=== PATIENT | male | born 1950 | race Caucasian/White ===

== ENCOUNTER 2018-06-14 12:05 | Inpatient (IN) | payer MEDICARE, SELFPAY ==
[2018-06-14] VITALS (8 sets, daily range): BP systolic 130–163; BP diastolic 76–95; PULSE 101–111; RESP 16–26; TEMP 36.8; O2SAT 18–96; BMI 27.2; BMI 27.3; BMI 26.4
[2018-06-14] MEDS: Albuterol 2.5 MG/3 ML VIAL.NEB. INHALATION ×3 (12:55→13:01)
[2018-06-14] MEDS: Ipratropium/Albuterol Sulfate 3 ML AMPUL.NEB INHALATION ×3 (12:55→23:00)
[2018-06-14 12:59] LABS: Absolute Lymphocyte Count 1.42 X10^3/ul (0.83-4.51); Absolute Neutrophil Count 6.9 X10^3/uL (2.0-7.7); Basophil# 0.09 X10^3/uL; Basophil% 0.9 % (0-1); Eosinophils% 9.7 % (0-5); Hematocrit 46.7 % (40-54); Hemoglobin 15.8 g/dl (13.0-16.5); Lymphocyte # 1.42 X10^3/ul (4.0); Lymphocyte % 13.8 % (19-41); Mean Corp Hgb Conc 33.8 g/gl (32-36); Mean Corpuscular Volume 88.6 fL (80-94); Mean Platelet Vol. 9.3 fl (6.2-12.0); Monocyte% 7.8 % (0-10); Neutrophil # 6.93 X10^3/uL (2.7-7.7); Neutrophil % 67.6 % (47-70); POSITIVE COUNT NO; POSITIVE DIFFERENTIAL NO; POSITIVE MORPHOLOGY NO; Platelet Count 345 K/mm3 (150-450); RBC Distribution Width CV 13.6 % (11.6-14.6); Red Blood Count 5.27 M/mm3 (4.6-6.2); White Blood Count 10.3 K/mm3 (4.4-11.0)
[2018-06-14 13:09] LABS: Anion Gap 12 (5-15); BUN 11 mg/dL (7-18); BUN/Creat Ratio 12.9 RATIO (10-20); Calcium,Total 9.3 mg/dL (8.5-10.1); Chloride 105 mmol/L (98-107); Creatinine, Serum 0.85 mg/dL (0.70-1.30); EST Glomerular Filtration Rate 95 mL/min (>60); Est Glom Filt Rate - Afr Amer 115 mL/min (>60); Estimated Creatinine Clearance 85.88 ml/min; Glucose 122 mg/dL (74-106); Sodium Level 140 mmol/L (136-145)
[2018-06-14] MEDS: predniSONE 20 MG Tablet 60 MG PO (13:13)
--- NOTE | 2018-06-14 13:25 | RAD_ITS ---
STUDY: X-RAY CHEST REASON FOR EXAM: Male, 68 years old. Dyspnea on exertion. Productive sputum. TECHNIQUE: PA and lateral views of the chest. COMPARISON: None. FINDINGS: EKG electrodes are seen. Hyperinflation. There is no demonstrated pleural abnormality. Normal size heart. Normal mediastinum and josselyn. Normal visualized pulmonary arteries. Normal visualized aortic arch and descending thoracic aorta. There are diffuse degenerative changes of the visualized thoracic spine. Normal visualized ribs, clavicles, and shoulders. There is no demonstrated abnormality of the visualized soft tissue structures of the upper abdomen. RAD/Chest PA and Lateral IMPRESSION: Hyperinflation. Electronically Signed: Bill Rico MD at 13:47 EST Tel [phone], Service support ,
--- NOTE | 2018-06-14 14:33 | CT_ITS ---
STUDY: CTA CHEST REASON FOR EXAM: Male, 68 years old. Tachycardia and tachypnea. RADIATION DOSAGE (If Supplied By Facility): CTDIvol = ( 10.86 ) mGy, DLP = ( 579.42 ) mGycm TECHNIQUE: The examination was performed with the intravenous administration of 100 ml of Isovue 370 contrast material. Post-processing of the angiographic images was performed, with multiplanar reformation and 3D reconstruction. Individualized dose optimization techniques were used for this CT. COMPARISON: Comparison is made with prior chest radiograph done earlier in the day. FINDINGS: Normal enhancement of the main pulmonary artery and right and left pulmonary arteries. Normal enhancement of the bilateral peripheral pulmonary arteries. There is no demonstrated pulmonary embolism. Normal thoracic aorta and visualized great vessels. There is no demonstrated aortic dissection. There are calcifications of the coronary arteries. Normal mediastinum. Normal hilar regions. Normal visualized trachea and bronchi. Hyperinflation. Diffuse emphysematous changes with evidence of central lobular emphysematous changes worse in the upper lobes. No infiltration is seen. Normal pleura. Normal chest wall structures. There are degenerative changes of thoracic spine. The patient is status post cholecystectomy. Small hiatal hernia. CT/CTA Chest W/WO Contrast IMPRESSION: Emphysematous changes worse in the upper lobes. No evidence of pulmonary embolism. Electronically Signed: Bill Rico MD at 15:31 EST Tel [phone], Service support ,
--- NOTE | 2018-06-14 15:08 | EKG12_ITS ---
Test Reason : SOB Blood Pressure : / mmHG Vent. Rate : 095 BPM Atrial Rate : 095 BPM P-R Int : 184 ms QRS Dur : 098 ms QT Int : 328 ms P-R-T Axes : 085 -79 035 degrees QTc Int : 412 ms Normal sinus rhythm Left axis deviation Possible Lateral infarct , age undetermined Inferior infarct , age undetermined Abnormal ECG Confirmed by LINNETTE FUENTES, SEBASTIAN ([id number]), offline editor MANISH ALVAREZ ([id number]) on 06/18/2018 2:09:49 PM Referred By: RAY Confirmed By:SEBASTIAN ANGLIN MD
--- NOTE | 2018-06-14 15:53 | ED.DCSUM_ITS ---
- ER Visit Summary Date of Service: 06/14/18 Chief Complaint: Shortness of breath, wheezing with productive cough that started 3 days ago History of Present Illness: The patient is a 68 M who has history of COPD who presents with shortness of breath, wheezing and productive cough of green sputum for the past 3 days. He does report rhinorrhea and postnasal drainage. He denies fever, chills or night sweats. He denies ocular, visual or auditory symptoms. He denies chest pain. He does complain of palpitations with walking or activity. He denies abdominal pain, nausea vomiting or diarrhea. He denies black or maroon stool. He denies urologic symptoms. He denies myalgias arthralgias. He denies headache, anesthesia, paresthesia motor weeks. He does complain of generalized weakness. He denies problems with bruising or bleeding. He denies urticaria or angioedema. Physical Examination: Vital signs are remarkable for a blood pressure 163/95 heart rate of 111 and respiration 26. Pulse ox 90% on room air. He is a thin gentleman. Head is atraumatic normocephalic. Pupils are equal round reactive. Extraocular muscles are intact. TMs are pearly white with landmarks noted. Nares patent with no drainage. Posterior pharynx without erythema or exudate. Uvula is midline. There is no dysphonia or dysphasia. Trachea is midline. There is no stridor with auscultation of the neck. Heart is rapid and regular without murmur, gallop or rub. Lungs are remarkable for increased x-ray phase, decreased air movement and wheezing noted throughout. Abdomen soft nontender. There is no asymmetry, swelling, discoloration, leg vein distention, palpable cords or tenderness along the distribution of the deep venous system. Neuro exam is nonfocal Test Results: Chest x-ray reveals hyperaeration with chronic changes consistent with COPD. White count is normal. Electronic panel is unremarkable. CTA was obtained because patient became tachycardic and dyspneic with hypoxia. CTA interpreted by radiologist reveals emphysematous COPD changes. Emergency Department Course and Treatment: Patient was treated with DuoNeb, albuterol for exacerbation COPD. Chest x-ray was obtained to evaluate for pneumonia. CTA was obtained because of the hypoxia with tachycardia. He was reassessed at 1555. He will receive a dose of antibiotics and steroids. He is saturating 93% on 2 L at rest. Treatment Plan: Aggressive pulmonary toilet, aerosols, steroids and antibiotics Disposition: MedSur Impression: 1. Exacerbation of COPD 2. Bronchitis 3. Sinus tachycardia documented monitor 4. Hypoxia This note was generated with [employer] dictation software. It may contain incorrect words, spelling, and punctuation that were not noted in review of the chart prior to signing ED Disposition - Plan for ED Patient: Chief Complaint: Shortness of Breath [facility] [[facility] Provider[facility] -
--- NOTE | 2018-06-14 16:03 | NURSING ---
MED SURG COPD, BRONCHITIS OBS MAURO
[2018-06-14] MEDS: Doxycycline 100 MG CAPSULE PO (16:28)
--- NOTE | 2018-06-14 17:01 | PCM.HP.STD ---
Problem List (1) COPD with acute exacerbation Status: Acute History of Present Illness Date of Admission: 06/14/18 Chief Complaint: shortness of breath. The patient is a 68 year old M who has been grossly short of breath over the past few weeks. Patient stated to be worse during the colder times but today, patient became very short of breath and dyspneic with the imaging bathroom. Patient presented to the emergency room and his vital signs were stable but patient got up and ambulated and dropped down to 89%. The decision was then made to admit the patient for acute exacerbation of COPD. Patient received 60 mg. Patient is never been admitted for COPD exacerbation before. Patient has been diagnosed with COPD but never has undergone pulmonary function test. [] Past Medical History Medical History: Medical History (Last Updated 06/14/18 @ 17:03 by Fidel Blue DO) Agent orange exposure Z77.098 COPD (chronic obstructive pulmonary disease) J44.9 Allergies No Known Allergies Allergy (Verified 04/17/16 11:27) Home Medications: Ambulatory Orders Medication Instructions Recorded Albuterol Sulfate [Ventolin Hfa] 1 - 2 puff INHALATION TID 06/14/18 Aspirin 325 mg PO BID 06/14/18 Multivits,Ca,Min/Iron/FA/Lycop 1 tab PO DAILY 06/14/18 [Centrum Men's Tablet] Surgical History: cholecystectomy Lives: Spouse/ Significant Other Smoking Status: Former smoker Tobacco Use: Non-smoker Alcohol: None Drugs: None - *Family History Maternal History Items: - - no COPD Review of Systems Constitutional: Denies: Chills, Fever, Weight Change Eyes: Denies: Blurred vision, Double vision HEENT: Denies: Head Aches, Sinus Congestion, Sinus Drainage Cardiovascular: Denies: Chest Pain, Palpitations Respiratory: Reports: Cough, Shortness of Breath Gastrointestinal: Denies: Abdominal Pain, Nausea, Vomiting Genitourinary: Denies: Dysuria Musculoskeletal: Denies: Joint Pain, Joint Tenderness Skin: Denies: Rash, Wounds Neurological: Denies: Numbness, Tingling, Focal weakness Psychiatric: Denies: Anxiety, Depression Endocrine: Denies: Change in Body Habitus, Heat/ Cold Intolerance Hematologic/ Lymphatic: Denies: Easy Bruising, Easy Bleeding Comment: A 10 point review of systems were negative except as mentioned in the history of present illness and the other review of systems. VTE Information - Inpt Only VTE Present on Admission: No VTE Pharm Prophylaxis ordered?: Yes Patient Problems: Active and Suspected Problems COPD with acute exacerbation (Acute) - Physical Exam General: Alert, Cooperative, No apparent distress HEENT: Atraumatic, Normocephalic Oral: Moist Mucosa, No Gingival or Mucosal Lesions/ Ulcerations Neck: No Nodes, Thyroid Normal Size and Texture Lungs: Diminished, Wheezes Cardiovascular: Regular rate, Regular Rhythm, Normal S1, Normal S2, No murmurs Abdomen: Bowel Sounds Present, Soft, Non Tender, Non-Distended, No Hepato-splenomegaly, Passing Flatus Extremities: No edema, No Calf Tenderness Skin: No rashes, No breakdown Musculoskeletal: No Tenderness to Palpation of Joints or Extremities, No Muscle Wasting Psych/Mental Status: Normal Affect, Appropriate Vital Signs Temp Pulse Resp BP Pulse Ox 36.8 C 106 H 16 131/95 H 18 06/14/18 12:05 06/14/18 16:11 06/14/18 16:11 06/14/18 16:11 06/14/18 16:11 Oxygen Delivery Method Room Air Weight: 86.183 kg Body Mass Index (BMI) 27.2 Laboratory Tests Past 24 Hrs 06/14/18 06/14/18 12:45 12:45 WBC 10.3 RBC 5.27 Hgb 15.8 Hct 46.7 MCV 88.6 MCH 30.0 MCHC 33.8 RDW 13.6 RDW Differential 44.0 H Plt Count 345 MPV 9.3 Immature Gran % (Auto) 0.200 Neut % (Auto) 67.6 Lymph % (Auto) 13.8 L Gem % (Auto) 7.8 Eos % (Auto) 9.7 H Baso % (Auto) 0.9 Absolute Neuts (auto) 6.9 Absolute Lymphs (auto) 1.42 Total Counted Not Reportable Sodium 140 Potassium 4.0 Chloride 105 Carbon Dioxide 23.0 Anion Gap 12 BUN 11 Creatinine 0.85 Estim Creat Clear Calc 85.88 Est GFR (MDRD) Af Amer 115 Est GFR (MDRD) Non-Af 95 BUN/Creatinine Ratio 12.9 Glucose 122 H Calcium 9.3 Clinical Impression(s) from Imaging Studies Chest X-Ray 06/14/18 13:25 IMPRESSION: Hyperinflation. Electronically Signed: Bill Rico MD at 13:47 EST Tel [phone], Service support , Chest CTA 06/14/18 14:33 IMPRESSION: Emphysematous changes worse in the upper lobes. No evidence of pulmonary embolism. Electronically Signed: Bill Rico MD at 15:31 EST Tel [phone], Service support , Assessment/Plan All Active Problems COPD with acute exacerbation (Acute) 1. Acute exacerbation of COPD Plan is for IV steroids and bronchodilators Check an amatory pulse ox prior to discharge Patient need to follow-up with pulmonology as outpatient and have formal pulmonary function tests 2. History of agent orange exposure It is unclear to me if patient is having overt symptoms with his agent orange. [facility] with [facility] for further screening and monitor as indicated. 3. DVT prophylaxis with Lovenox Code Visit OBSV E&M: 50970 Initial observation care L2
--- NOTE | 2018-06-14 17:05 | HP.PCM_ITS ---
Problem List (1) COPD with acute exacerbation Status: Acute History of Present Illness Date of Admission: 06/14/18 Chief Complaint: shortness of breath. The patient is a 68 year old M who has been grossly short of breath over the past few weeks. Patient stated to be worse during the colder times but today, patient became very short of breath and dyspneic with the imaging bathroom. Patient presented to the emergency room and his vital signs were stable but patient got up and ambulated and dropped down to 89%. The decision was then made to admit the patient for acute exacerbation of COPD. Patient received 60 mg. Patient is never been admitted for COPD exacerbation before. Patient has been diagnosed with COPD but never has undergone pulmonary function test. [] Past Medical History Medical History: Medical History (Last Updated 06/14/18 @ 17:03 by Fidel Blue DO) Agent orange exposure Z77.098 COPD (chronic obstructive pulmonary disease) J44.9 Allergies No Known Allergies Allergy (Verified 04/17/16 11:27) Home Medications: Ambulatory Orders Medication Instructions Recorded Albuterol Sulfate [Ventolin Hfa] 1 - 2 puff INHALATION TID 06/14/18 Aspirin 325 mg PO BID 06/14/18 Multivits,Ca,Min/Iron/FA/Lycop 1 tab PO DAILY 06/14/18 [Centrum Men's Tablet] Surgical History: cholecystectomy Lives: Spouse/ Significant Other Smoking Status: Former smoker Tobacco Use: Non-smoker Alcohol: None Drugs: None - *Family History Maternal History Items: - - no COPD Review of Systems Constitutional: Denies: Chills, Fever, Weight Change Eyes: Denies: Blurred vision, Double vision HEENT: Denies: Head Aches, Sinus Congestion, Sinus Drainage Cardiovascular: Denies: Chest Pain, Palpitations Respiratory: Reports: Cough, Shortness of Breath Gastrointestinal: Denies: Abdominal Pain, Nausea, Vomiting Genitourinary: Denies: Dysuria Musculoskeletal: Denies: Joint Pain, Joint Tenderness Skin: Denies: Rash, Wounds Neurological: Denies: Numbness, Tingling, Focal weakness Psychiatric: Denies: Anxiety, Depression Endocrine: Denies: Change in Body Habitus, Heat/ Cold Intolerance Hematologic/ Lymphatic: Denies: Easy Bruising, Easy Bleeding Comment: A 10 point review of systems were negative except as mentioned in the history of present illness and the other review of systems. VTE Information - Inpt Only VTE Present on Admission: No VTE Pharm Prophylaxis ordered?: Yes Patient Problems: Active and Suspected Problems COPD with acute exacerbation (Acute) - Physical Exam General: Alert, Cooperative, No apparent distress HEENT: Atraumatic, Normocephalic Oral: Moist Mucosa, No Gingival or Mucosal Lesions/ Ulcerations Neck: No Nodes, Thyroid Normal Size and Texture Lungs: Diminished, Wheezes Cardiovascular: Regular rate, Regular Rhythm, Normal S1, Normal S2, No murmurs Abdomen: Bowel Sounds Present, Soft, Non Tender, Non-Distended, No Hepato-splen omegaly, Passing Flatus Extremities: No edema, No Calf Tenderness Skin: No rashes, No breakdown Musculoskeletal: No Tenderness to Palpation of Joints or Extremities, No Muscle Wasting Psych/Mental Status: Normal Affect, Appropriate Vital Signs Temp Pulse Resp BP Pulse Ox 36.8 C 106 H 16 131/95 H 18 06/14/18 12:05 06/14/18 16:11 06/14/18 16:11 06/14/18 16:11 06/14/18 16:11 Oxygen Delivery Method Room Air Weight: 86.183 kg Body Mass Index (BMI) 27.2 Laboratory Tests Past 24 Hrs 06/14/18 06/14/18 12:45 12:45 WBC 10.3 RBC 5.27 Hgb 15.8 Hct 46.7 MCV 88.6 MCH 30.0 MCHC 33.8 RDW 13.6 RDW Differential 44.0 H Plt Count 345 MPV 9.3 Immature Gran % (Auto) 0.200 Neut % (Auto) 67.6 Lymph % (Auto) 13.8 L Darke % (Auto) 7.8 Eos % (Auto) 9.7 H Baso % (Auto) 0.9 Absolute Neuts (auto) 6.9 Absolute Lymphs (auto) 1.42 Total Counted Not Reportable Sodium 140 Potassium 4.0 Chloride 105 Carbon Dioxide 23.0 Anion Gap 12 BUN 11 Creatinine 0.85 Estim Creat Clear Calc 85.88 Est GFR (MDRD) Af Amer 115 Est GFR (MDRD) Non-Af 95 BUN/Creatinine Ratio 12.9 Glucose 122 H Calcium 9.3 Clinical Impression(s) from Imaging Studies Chest X-Ray 06/14/18 13:25 IMPRESSION: Hyperinflation. Electronically Signed: Bill Rico MD at 13:47 EST Tel [phone], Service support , Chest CTA 06/14/18 14:33 IMPRESSION: Emphysematous changes worse in the upper lobes. No evidence of pulmonary embolism. Electronically Signed: Bill Rico MD at 15:31 EST Tel [phone], Service support , Assessment/Plan All Active Problems COPD with acute exacerbation (Acute) 1. Acute exacerbation of COPD * Plan is for IV steroids and bronchodilators * Check an amatory pulse ox prior to discharge * Patient need to follow-up with pulmonology as outpatient and have formal pulmonary function tests 2. History of agent orange exposure * It is unclear to me if patient is having overt symptoms with his agent orange. * Recommend follow-[facility] with [facility] for further screening and monitor as indicated. 3. DVT prophylaxis with Lovenox Code Visit OBSV E&M: 22041 Initial observation care L2
[2018-06-14] MEDS: Aspirin 325 MG Tablet PO (18:34)
[2018-06-14] MEDS: 0.9% NaCl Peripheral Flush Adult/Peds IV (22:19)
[2018-06-15] VITALS (11 sets, daily range): BP systolic 112–128; BP diastolic 70–83; PULSE 89–108; RESP 16–24; TEMP 36.6–36.9; O2SAT 90–94
[2018-06-15] MEDS: Ipratropium/Albuterol Sulfate 3 ML AMPUL.NEB INHALATION ×6 (02:15→23:34)
[2018-06-15] MEDS: 0.9% NaCl Peripheral Flush Adult/Peds IV ×3 (06:02→20:55)
--- NOTE | 2018-06-15 08:04 | PCM.PN.HOSP ---
Patient Problems: Active and Suspected Problems (Last Updated 06/14/18 @ 17:03 by Fidel Blue DO) COPD with acute exacerbation (Acute) Subjective: He is not on oxygen at home and feels the cold made him worse. He only uses an albuterol inhaler. No fevers, or chills, No complaints Vitals/I&O's: Vital Signs Temp Pulse Resp BP Pulse Ox 98.2 F 102 H 18 128/70 H 90 06/15/18 04:15 06/15/18 07:01 06/15/18 07:01 06/15/18 04:15 06/15/18 07:01 Oxygen Flow Rate (L/min) 2 Oxygen Delivery Method Nasal Cannula Weight: 179 lb 0.246 oz Body Mass Index (BMI) 26.4 Intake and Output for Last 24 Hours 06/13/18 06/14/18 06/15/18 23:59 23:59 23:59 Intake Total 480 / 480 Balance 480 / 480 General: Alert, Oriented x3, Cooperative, No apparent distress HEENT: Atraumatic, EOMI, Normocephalic Oral: Dry Mucosa Neck: Supple, No JVD Lungs: Normal air movement, No rhonchi, No rales, Wheezes Cardiovascular: Regular rate, Regular Rhythm, Normal S1, Normal S2, No murmurs Abdomen: Soft, Non Tender, Non-Distended, No Hepato-splenomegaly Extremities: No edema, Capillary Refill Less than 3 Seconds Skin: No rashes, No breakdown Neurological: Neuro grossly intact, Sensory exam intact to light touch and pain Psych/Mental Status: Normal Affect, Appropriate Laboratory Results 06/14/18 12:45: WBC 10.3, RBC 5.27, Hgb 15.8, Hct 46.7, MCV 88.6, MCH 30.0, MCHC 33.8, RDW 13.6, RDW Differential 44.0 H, Plt Count 345, MPV 9.3, Immature Gran % (Auto) 0.200, Neut % (Auto) 67.6, Lymph % (Auto) 13.8 L, Mckean % (Auto) 7.8, Eos % (Auto) 9.7 H, Baso % (Auto) 0.9, Absolute Neuts (auto) 6.9, Absolute Lymphs (auto) 1.42, Total Counted Not Reportable 06/14/18 12:45: Sodium 140, Potassium 4.0, Chloride 105, Carbon Dioxide 23.0, Anion Gap 12, BUN 11, Creatinine 0.85, Estim Creat Clear Calc 85.88, Est GFR (MDRD) Af Amer 115, Est GFR (MDRD) Non-Af 95, BUN/Creatinine Ratio 12.9, Glucose 122 H, Calcium 9.3 Current Medications Acetaminophen (Tylenol) 650 mg PO Q6H PRN PRN PRN Reason: Mild Pain (scale 0-3)/T>100.7 Albuterol Sulfate (Ventolin Aerosols) 2.5 mg INHALATION Q2H PRN PRN PRN Reason: SHORTNESS OF BREATH Albuterol/Ipratropium (Duoneb) 3 ml INHALATION Q4H.RT [facility] Last Admin: 06/15/18 07:00 Dose: 3 ml Aspirin (Aspirin) 325 mg PO BIDCM [facility] Last Admin: 06/14/18 18:34 Dose: 325 mg Enoxaparin Sodium (Lovenox) 40 mg SC DAILY@1000 [facility] Magnesium Hydroxide (Milk Of Magnesia) 30 ml PO DAILY PRN PRN PRN Reason: Constipation Methylprednisolone (Solu-Medrol) 40 mg IV Q8 [facility] Last Admin: 06/15/18 06:02 Dose: 40 mg Multivitamins/Minerals (Multivitamin With Minerals) 1 tablet PO DAILY@0800 [facility] Ondansetron HCl (Zofran) 4 mg IV Q8H PRN PRN PRN Reason: Nausea Sodium Chloride () 5 - 15 ml IV UD PRN PRN Reason: SALINE FLUSH Last Admin: 06/15/18 06:02 Dose: 10 ml Medical Necessity - Tobacco Use Smoking Status: Former smoker Tobacco Use: Non-smoker Assessment/Plan All Active Problems (Last Updated 06/14/18 @ 17:03 by Fidel Blue DO) COPD with acute exacerbation (Acute) 1. 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
--- NOTE | 2018-06-15 08:10 | PN_ITS ---
Patient Problems: Active and Suspected Problems (Last Updated 06/14/18 @ 17:03 by Fidel Blue DO) COPD with acute exacerbation (Acute) Subjective: He is not on oxygen at home and feels the cold made him worse. He only uses an albuterol inhaler. No fevers, or chills, No complaints Vitals/I&O's: Vital Signs Temp Pulse Resp BP Pulse Ox 98.2 F 102 H 18 128/70 H 90 06/15/18 04:15 06/15/18 07:01 06/15/18 07:01 06/15/18 04:15 06/15/18 07:01 Oxygen Flow Rate (L/min) 2 Oxygen Delivery Method Nasal Cannula Weight: 179 lb 0.246 oz Body Mass Index (BMI) 26.4 Intake and Output for Last 24 Hours 06/13/18 06/14/18 06/15/18 23:59 23:59 23:59 Intake Total 480 / 480 Balance 480 / 480 General: Alert, Oriented x3, Cooperative, No apparent distress HEENT: Atraumatic, EOMI, Normocephalic Oral: Dry Mucosa Neck: Supple, No JVD Lungs: Normal air movement, No rhonchi, No rales, Wheezes Cardiovascular: Regular rate, Regular Rhythm, Normal S1, Normal S2, No murmurs Abdomen: Soft, Non Tender, Non-Distended, No Hepato-splenomegaly Extremities: No edema, Capillary Refill Less than 3 Seconds Skin: No rashes, No breakdown Neurological: Neuro grossly intact, Sensory exam intact to light touch and pain Psych/Mental Status: Normal Affect, Appropriate Laboratory Results 06/14/18 12:45: WBC 10.3, RBC 5.27, Hgb 15.8, Hct 46.7, MCV 88.6, MCH 30.0, MCHC 33.8, RDW 13.6, RDW Differential 44.0 H, Plt Count 345, MPV 9.3, Immature Gran % (Auto) 0.200, Neut % (Auto) 67.6, Lymph % (Auto) 13.8 L, Whitman % (Auto) 7.8, Eos % (Auto) 9.7 H, Baso % (Auto) 0.9, Absolute Neuts (auto) 6.9, Absolute Lymphs (auto) 1.42, Total Counted Not Reportable 06/14/18 12:45: Sodium 140, Potassium 4.0, Chloride 105, Carbon Dioxide 23.0, Anion Gap 12, BUN 11, Creatinine 0.85, Estim Creat Clear Calc 85.88, Est GFR (MDRD) Af Amer 115, Est GFR (MDRD) Non-Af 95, BUN/Creatinine Ratio 12.9, Glucose 122 H, Calcium 9.3 Current Medications Acetaminophen (Tylenol) 650 mg PO Q6H PRN PRN PRN Reason: Mild Pain (scale 0-3)/T>100.7 Albuterol Sulfate (Ventolin Aerosols) 2.5 mg INHALATION Q2H PRN PRN PRN Reason: SHORTNESS OF BREATH Albuterol/Ipratropium (Duoneb) 3 ml INHALATION Q4H.RT [facility] Last Admin: 06/15/18 07:00 Dose: 3 ml Aspirin (Aspirin) 325 mg PO BIDCM [facility] Last Admin: 06/14/18 18:34 Dose: 325 mg Enoxaparin Sodium (Lovenox) 40 mg SC DAILY@1000 [facility] Magnesium Hydroxide (Milk Of Magnesia) 30 ml PO DAILY PRN PRN PRN Reason: Constipation Methylprednisolone (Solu-Medrol) 40 mg IV Q8 [facility] Last Admin: 06/15/18 06:02 Dose: 40 mg Multivitamins/Minerals (Multivitamin With Minerals) 1 tablet PO DAILY@0800 [facility] Ondansetron HCl (Zofran) 4 mg IV Q8H PRN PRN PRN Reason: Nausea Sodium Chloride () 5 - 15 ml IV UD PRN PRN Reason: SALINE FLUSH Last Admin: 06/15/18 06:02 Dose: 10 ml Medical Necessity - Tobacco Use Smoking Status: Former smoker Tobacco Use: Non-smoker Assessment/Plan All Active Problems (Last Updated 06/14/18 @ 17:03 by Fidel Blue DO) COPD with acute exacerbation (Acute) 1. 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
[2018-06-15] MEDS: Aspirin 325 MG Tablet PO ×2 (08:37→17:38)
--- NOTE | 2018-06-15 09:14 | CM.UR ---
Noted [facility] as [facility]. Alerted [facility] of patient's admission. Explained to statistical clerk advertising that it was for notification purposes only. Vet was not asking for transfer. Verb understanding. She requested face sheet, current medication list, labs, progress notes. Faxed at this time. Ivis Yanes RN, CCM.
--- NOTE | 2018-06-15 12:16 | CM.UR ---
See sample paster. Met face to face with patient, introduced myself and my role. Met face to face with patient for 48 minutes. Reji is very talkative. 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 He spoke with for a year after returning from [place] but not recently. Spoke a lot, almost ranting, about politics, congregation, , [facility], etc. Had to redirect the vet multiple times. Spoke about [place] exposure and how 2 of his friends from his unit from it--became tearful at this time. Currently goes to [facility] but is transferring to [facility] due to dissatisfaction with [facility]. Diagnosed with COPD previously. Reji is non-smoker. Currently on oxygen but plan to wean before discharge. Very active and states if he has to go home on o2 he will want a portable concentrator. Being referred to pulmonary at discharge. CM will be available for any discharge needs. Ivis Yanes RN, [facility].
[2018-06-15] MEDS: Multivitamins,Ther W-Minerals Tablet 1 TABLET PO ×2 (12:18)
[2018-06-16] VITALS (15 sets, daily range): BP systolic 105–144; BP diastolic 63–87; PULSE 68–105; RESP 16–24; TEMP 36.5–37.1; O2SAT 83–96
[2018-06-16] MEDS: Ipratropium/Albuterol Sulfate 3 ML AMPUL.NEB INHALATION ×6 (02:59→23:00)
--- NOTE | 2018-06-16 06:33 | PCM.PN.HOSP ---
Patient Problems: Active and Suspected Problems (Last Updated 06/14/18 @ 17:03 by Fidel Blue DO) COPD with acute exacerbation (Acute) Subjective: Seems to be breathing better, thinks that his home inhaler doesnt work Vitals/I&O's: Vital Signs Temp Pulse Resp BP Pulse Ox 98.8 F 68 18 133/80 H 93 06/16/18 03:40 06/16/18 03:40 06/16/18 03:40 06/16/18 03:40 06/16/18 03:40 Oxygen Flow Rate (L/min) 1 Oxygen Delivery Method Nasal Cannula Weight: 179 lb 0.246 oz Body Mass Index (BMI) 26.4 Intake and Output for Last 24 Hours 06/14/18 06/15/18 06/16/18 23:59 23:59 23:59 Intake Total 2830 / 2830 Balance 2830 / 2830 General: Alert, Oriented x3, Cooperative, No apparent distress HEENT: Atraumatic, EOMI, Normocephalic Oral: Dry Mucosa Neck: Supple, No JVD Lungs: Normal air movement, No rhonchi, No rales, Wheezes Cardiovascular: Regular rate, Regular Rhythm, Normal S1, Normal S2, No murmurs Abdomen: Soft, Non Tender, Non-Distended, No Hepato-splenomegaly Extremities: No edema, Capillary Refill Less than 3 Seconds Skin: No rashes, No breakdown Neurological: Neuro grossly intact, Sensory exam intact to light touch and pain Psych/Mental Status: Normal Affect, Appropriate Current Medications Acetaminophen (Tylenol) 650 mg PO Q6H PRN PRN PRN Reason: Mild Pain (scale 0-3)/T>100.7 Albuterol Sulfate (Ventolin Aerosols) 2.5 mg INHALATION Q2H PRN PRN PRN Reason: SHORTNESS OF BREATH Albuterol/Ipratropium (Duoneb) 3 ml INHALATION Q4H.RT [facility] Last Admin: 06/16/18 02:59 Dose: 3 ml [facility]) [facility] Last Admin: 06/15/18 17:38 Dose: 325 mg Enoxaparin Sodium (Lovenox) 40 mg SC DAILY@1000 [facility] Last Admin: 06/15/18 12:19 Dose: Not Given Magnesium Hydroxide (Milk Of Magnesia) 30 ml PO DAILY PRN PRN PRN Reason: Constipation Methylprednisolone (Solu-Medrol) 40 mg IV Q8 [facility] Last Admin: 06/15/18 20:55 Dose: 40 mg Multivitamins/Minerals (Multivitamin With Minerals) 1 tablet PO DAILY@0800 [facility] Last Admin: 06/15/18 12:18 Dose: 1 tablet Nutritional Formula (Lactose Free) (Ensure Enlive) 120 ml PO 4X/DAY [facility] Last Admin: 06/15/18 20:58 Dose: 120 ml Ondansetron HCl (Zofran) 4 mg IV Q8H PRN PRN PRN Reason: Nausea Sodium Chloride () 5 - 15 ml IV UD PRN PRN Reason: SALINE FLUSH Last Admin: 06/15/18 20:55 Dose: 10 ml Medical Necessity - Tobacco Use Smoking Status: Former smoker Tobacco Use: Non-smoker Assessment/Plan All Active Problems (Last Updated 06/14/18 @ 17:03 by Fidel Blue DO) COPD with acute exacerbation (Acute) 1. 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
[2018-06-16] MEDS: Aspirin 325 MG Tablet PO ×2 (08:07→17:30)
[2018-06-16] MEDS: 0.9% NaCl Peripheral Flush Adult/Peds IV (21:56)
[2018-06-17] VITALS (9 sets, daily range): BP systolic 113–135; BP diastolic 66–87; PULSE 70–104; RESP 18–24; TEMP 36.8–37; O2SAT 83–102
[2018-06-17] MEDS: Ipratropium/Albuterol Sulfate 3 ML AMPUL.NEB INHALATION ×4 (03:40→15:13)
[2018-06-17 06:06] LABS: Absolute Lymphocyte Count 0.64 X10^3/ul (0.83-4.51); Absolute Neutrophil Count 9.7 X10^3/uL (2.0-7.7); Hematocrit 40.9 % (40-54); Hemoglobin 13.6 g/dl (13.0-16.5); Lymphocyte # 0.64 X10^3/ul (4.0); Lymphocyte % 5.8 % (19-41); Mean Corp Hgb Conc 33.3 g/gl (32-36); Mean Corpuscular Hgb 29.9 pg (27.0-32.0); Mean Corpuscular Volume 89.9 fL (80-94); Mean Platelet Vol. 9.3 fl (6.2-12.0); Monocyte# 0.67 X10^3/uL; Monocyte% 6.1 % (0-10); Neutrophil # 9.67 X10^3/uL (2.7-7.7); Platelet Count 291 K/mm3 (150-450); RBC Distribution Width CV 13.5 % (11.6-14.6); RBC Distribution Width SD 44.4 fl (35.1-43.9); Red Blood Count 4.55 M/mm3 (4.6-6.2)
[2018-06-17 06:08] LABS: POSITIVE COUNT NO; POSITIVE DIFFERENTIAL NO; POSITIVE MORPHOLOGY NO
[2018-06-17 06:23] LABS: Anion Gap 9 (5-15); BUN 20 mg/dL (7-18); BUN/Creat Ratio 24.8 RATIO (10-20); Calcium,Total 8.9 mg/dL (8.5-10.1); Chloride 105 mmol/L (98-107); Creatinine, Serum 0.81 mg/dL (0.70-1.30); EST Glomerular Filtration Rate 101 mL/min (>60); Est Glom Filt Rate - Afr Amer 122 mL/min (>60); Estimated Creatinine Clearance 87.28 ml/min; Glucose 156 mg/dL (74-106); Potassium 4.2 mmol/L (3.5-5.1); Sodium Level 140 mmol/L (136-145)
[2018-06-17] MEDS: 0.9% NaCl Peripheral Flush Adult/Peds IV ×2 (06:37→14:56)
[2018-06-17] MEDS: Multivitamins,Ther W-Minerals Tablet 1 TABLET PO (08:36)
[2018-06-17] MEDS: Aspirin 325 MG Tablet PO (08:36)
--- NOTE | 2018-06-17 11:52 | PCM.DC ---
- Discharge Diagnoses Current Active Problems: Current Active and Chronic Problems (Last Updated 06/14/18 @ 17:03 by Fidel Blue DO) COPD with acute exacerbation (Acute) You will use the following diet at home:: No restrictions Your food should be the consistency of: Regular Your liquids should be the consistency of: Regular/Thin Discharge Activity: Return to Normal Activity Weight Bearing Status: Full weight bearing Additional Instructions: use oxygen at 4 liters per min continuously Allergies/Adverse Reactions: Allergies No Known Allergies Allergy (Verified 04/17/16 11:27) Medications to take at Discharge Albuterol Sulfate [Ventolin Hfa] 1 - 2 puff INHALATION TID 06/14/18 Aspirin 325 mg PO BID 06/14/18 Multivits,Ca,Min/Iron/FA/Lycop [Centrum Men's Tablet] 1 tab PO DAILY 06/14/18 Fluticasone/Salmeterol [Advair 250-50 Diskus] 1 ea IH BID #1 blst.w.dev 06/17/18 Prednisone 10 mg PO UD #30 tab 06/17/18 The following prescriptions were given: Prednisone 10 mg PO UD #30 tab Fluticasone/Salmeterol [Advair 250-50 Diskus] 1 ea IH BID #1 blst.w.dev Primary Care Physician: [facility],[place] [Primary Care Provider] - Please follow up with your Primary Care Physician in: within 2 weeks Test Results: Test results from this visit will be discussed in further detail at your follow-up appointment, if applicable.
--- NOTE | 2018-06-17 11:55 | DCINST_ITS ---
- Discharge Diagnoses Current Active Problems: Current Active and Chronic Problems (Last Updated 06/14/18 @ 17:03 by Fidel Blue DO) COPD with acute exacerbation (Acute) You will use the following diet at home:: No restrictions Your food should be the consistency of: Regular Your liquids should be the consistency of: Regular/Thin Discharge Activity: Return to Normal Activity Weight Bearing Status: Full weight bearing Additional Instructions: use oxygen at 4 liters per min continuously Allergies/Adverse Reactions: Allergies No Known Allergies Allergy (Verified 04/17/16 11:27) Medications to take at Discharge Albuterol Sulfate [Ventolin Hfa] 1 - 2 puff INHALATION TID 06/14/18 Aspirin 325 mg PO BID 06/14/18 Multivits,Ca,Min/Iron/FA/Lycop [Centrum Men's Tablet] 1 tab PO DAILY 06/14/18 Fluticasone/Salmeterol [Advair 250-50 Diskus] 1 ea IH BID #1 blst.w.dev 06/17/18 Prednisone 10 mg PO UD #30 tab 06/17/18 The following prescriptions were given: Prednisone 10 mg PO UD #30 tab Fluticasone/Salmeterol [Advair 250-50 Diskus] 1 ea IH BID #1 blst.w.dev Primary Care Physician: [facility],[place] [Primary Care Provider] - Please follow up with your Primary Care Physician in: within 2 weeks Test Results: Test results from this visit will be discussed in further detail at your follow- up appointment, if applicable.
--- NOTE | 2018-06-17 13:00 | CASEMGMT ---
VERA CARROLL NOTE: Home O2 qualification testing has been completed by RN and pt qualifies for home O2. VERA CARROLL to room to talk with pt about oxygen and DME company. Informed pt that in order for oxygen to be covered, it would need to be billed through the [place]. Pt adamant he does not ever want to go back to the [facility]. States he is not established @ [facility] yet. Pt also reports he has an appt @ [facility] today 06/17/18. VERA CARROLL spoke with Radha @ [facility] and she was made aware that pt reports he will not be returning. Radha states O2 can still be obtained through [employer] and phone number provided for [facility]. Call placed to them and VERA CARROLL was informed that they can obtain and 30-day script for emergency Oxygen but then pt would need to go to [facility] for an Oxygen eval with in 30-days. * They were informed that pt is requesting portable mini tanks and that he states he will not use the oxygen if he has to have the larger portable tanks on wheels. RT @ [place] explained this is the only kind they provide on the 30-day script. Pt informed and states he is willing to pay for oxygen [id number] in order to have the small/mini portable O2 tanks. Call placed to [employer] and estimated cost of concentrator is $70/month and an additional $35/month for portable tanks. They were made aware pt is requesting the small/mini portable tanks and they stated on day of d/c they would deliver the portable tank on wheels at the hospital but then they would deliver the small/mini portable tanks to pt's home. Pt made aware and agreeable to paying this amt and agreeable with having the portable tank on wheels just until he gets home where he can get the smaller portable tanks. Script obtained for oxygen and faxed to [employer]. They were made aware plans are for discharge today 06/17/18 and they stated they will deliver the portable oxygen today. Pt made aware he is to contact [facility] when he gets home so delivery of concentrator and small/mini tanks can be arranged. Pt voices understanding. Diamond ÁLVAREZ RN, CM
--- NOTE | 2018-06-17 14:15 | CASEMGMT ---
VERA CARROLL received discharge medication to lamb check. VERA CARROLL called [facility], patient preferred pharmacy, and inquired about an Advair 250/50 out of pocket cost. At [facility] patient would have to pay $773 out of pocket. VERA CARROLL inquired what similar drugs would cost. Symbicort was around $250. VERA CARROLL updated patient regarding cost and instructions if patient would like to get prescriptions filled at [facility]. Patient adamant that he did not want to go to [facility]. VERA CARROLL updated hospitalist with patients request for Symbicort.
--- NOTE | 2018-06-18 09:25 | DS.PCM_ITS ---
Discharge Date and Diagnosis Date of Admission: 06/14/18 Date of Discharge: 06/17/18 - Primary Discharge Diagnosis #1 exacerbation of COPD #2 hypoxia secondary to #1 Hospital Course and Treatment Operations: None Procedures: None Summary of Care Provided: The patient is a 68 year old M who was seen in the emergency room with a chief complaint of shortness of breath and according to the ER record a productive cough. Workup in the emergency room included a chest x-ray which showed hyper aeration and chronic changes consistent with chronic obstructive pulmonary disease, CTA was obtained because of the patient's tachycardia, CTA shows emphysematous changes without evidence of PE. Patient's pulse ox initially on room air was 90%. Patient was given aerosol treatments in the emergency room and IV antibiotics and corticosteroids IV was administered. Patient was admitted to [place] [id number] for exacerbation of COPD, IV corticosteroids were continued but the patient did not receive further antibiotics at the discretion of the admitting hospitalist. When I examined the patient on 06/17/18, he denied any cough with productive sputum, I did not think he had bronchitis on admission.. On 06/17/18, patient was seen and examined: On examination he appeared in good health and spirits. Vital signs as documented. Skin warm and dry and without overt rashes. Neck without JVD. Lungs-scattered mild expiratory wheezing was noted on the right, lung sounds are distant bilaterally. Heart exam notable for regular rhythm, normal sounds and absence of murmurs, rubs or gallops. Abdomen unremarkable and without evidence of organomegaly, masses, or abdominal aortic enlargement. Extremities nonedematous. Neuro: Cranial nerves II through XII are grossly intact, no focal motor deficits were noted. Psych: Patient is alert and oriented x3, he does not appear anxious or depressed. Had a discussion with the patient and his , patient qualified for home O2 and I felt he was stable for discharge home on 06/17/18. Patient agreed to use of oxygen at home, his pulse ox on ambulation on room air was 84%, pulse ox on ambulation with O2 at 4 L was 90%. Patient was expected to need portable oxygen also at home. On 06/17/18, patient was seen and examined and felt to be in stable condition for discharge home - Physical Exam Vital Signs Temp Pulse Resp BP Pulse Ox 98.5 F 104 H 18 135/87 H 102 06/17/18 14:00 12/03/18 15:13 06/17/18 15:13 06/17/18 14:00 06/17/18 14:00 Oxygen Flow Rate (L/min) [ 4 AMBULATION with Oxygen] Oxygen Flow Rate (L/min) 3 Oxygen Delivery Method Nasal Cannula Weight: 81.2 kg Body Mass Index (BMI) 26.4 Intake and Output for Last 24 Hours 06/16/18 06/17/18 06/18/18 23:59 23:59 23:59 Intake Total 1919 900 / 900 Output Total 2 / 2 Balance 1917 900 / 900 Discharge Activity: Return to Normal Activity Weight Bearing Status: Full weight bearing Home Medications: Medications to take at Discharge Albuterol Sulfate [Ventolin Hfa] 1 - 2 puff INHALATION TID 06/14/18 Aspirin 325 mg PO BID 06/14/18 Multivits,Ca,Min/Iron/FA/Lycop [Centrum Men's Tablet] 1 tab PO DAILY 06/14/18 Fluticasone/Salmeterol [Advair 250-50 Diskus] 1 ea IH BID #1 blst.w.dev 06/17/18 Prednisone 10 mg PO UD #30 tab 06/17/18 Following Prescrptions Were Given to Patient: Prednisone 10 mg PO UD #30 tab Fluticasone/Salmeterol [Advair 250-50 Diskus] 1 ea IH BID #1 blst.w.dev Primary Care Physician: [facility],[place] [Primary Care Provider] - Please follow up with your Primary Care Physician in: within 2 weeks Disposition: Home Minutes spent on discharge:: 32 Patient Condition:: Stable Medical Necessity - Tobacco Use Smoking Status: Former smoker Tobacco Use: Non-smoker Meaningful Use Info Meaningful Use Diagnoses (Choose all that apply): None applicable Code Visit Inpatient E&M: 76872 Disch Hosp
--- OUTSIDE RECORDS SUMMARY | 2018-08-09 12:11 | XMS RPT_ITS ---
:1950 Author Organization OH[facility] Care Team Providers Name Role Phone [facility] [place] Primary [facility] Unavailable Jopperi, Fidel Admitting Unavailable Gerson Boyd Attending Unavailable Jopperi, Fidel Admitting Unavailable Jopperi, Fidel Attending [facility]available [facility] [place] [facility] Unavailable Jopperi, Fidel Consulting Unavailable Jopperi, Fidel Admitting Unavailable Seth Pérez Attending [facility]available [facility] [place] [facility] Unavailable Seth Pérez Consulting Unavailable Jopperi, Fidel Admitting Unavailable Jamel Pérezolas F Attending [facility]available [facility] [place] [facility] Unavailable Seth Pérez Consulting Unavailable Olgapperi, Fidel Admitting Unavailable Oliver Gerson Attending Unavailable [facility] [place] Primary Care Unavailable Gerson Boyd Consulting Unavailable PROBLEMS PROBLEMS No Problem Records FoundPROCEDURES PROCEDURES No Procedure Records FoundRESULTS RESULTS 12 LEAD ELECTROCARDIOGRAM Observed: 06/18/2018 Status: F Source: [place] 2:10 PM [facility] REPOSITORY [facility] Cardiovascular Services [address] [place] [address] 12 Lead EKG 06/14/18 1443 MR#: [id number] Acct: [id number] Name: LAVERNE SAWYER Rep #: [id number] : 1950 68 From: Isaac Anglin MD Attending Dr: Gerson Boyd DO Status: DIS IN Ordering Dr: Bear Hill MD Date: 06/14/18 Location: MS2 Sex: M C Admitted: 06/16/18 Test Reason : SOB Blood Pressure : / mmHG Vent. Rate : 095 BPM Atrial Rate : 095 BPM P-R Int : 184 ms QRS Dur : 098 ms QT Int : 328 ms P-R-T Axes : 085 -79 035 degrees QTc Int : 412 ms Normal sinus rhythm Left axis deviation Possible Lateral infarct , age undetermined Inferior infarct , age undetermined Abnormal ECG Confirmed by LINNETTE FUENTES, ISAAC ([id number]), editor index MANISH ALVAREZ ([id number]) on 06/18/2018 2:09:49 PM Referred By: Confirmed By:ISAAC ANGLIN MD 06/18/18 1409 Date Isaac Anglin MD CC: [facility]; Gerson Boyd DO; Bear Hill MD Signed DISCHARGE SUMMARY Observed: 06/18/2018 Status: F Source: [place] 9:34 AM [facility] REPOSITORY [facility] Medical Records Department [address] [place] [address] Discharge Summary 06/18/18 0916 MR#: [id number] Acct: [id number] Name: LAVERNE SAWYER Rep #: [id number] : 1950 68 From: Gerson Boyd DO PCP: [facility], [place] Status: DIS IN Y Location: MS2 [id number] Discharge Date and Diagnosis Date of Admission: 06/14/18 Date of Discharge: 06/17/18 - Primary Discharge Diagnosis #1 exacerbation of COPD #2 hypoxia secondary to #1 Hospital Course and Treatment Operations: None Procedures: None Summary of Care Provided: The patient is a 68 year old M who was seen in the emergency room with a chief complaint of shortness of breath and according to the ER record a productive cough. Workup in the emergency room included a chest x-ray which showed hyper aeration and chronic changes consistent with chronic obstructive pulmonary disease, CTA was obtained because of the patient's tachycardia, CTA shows emphysematous changes without evidence of PE. Patient's pulse ox initially on room air was 90%. Patient was given aerosol treatments in the emergency room and IV antibiotics and corticosteroids IV was administered. Patient was admitted to [place] [address] for exacerbation of COPD, IV corticosteroids were continued but the patient did not receive further antibiotics at the discretion of the admitting hospitalist. When I examined the patient on 06/17/18, he denied any cough with productive sputum, I did not think he had bronchitis on admission.. On 06/17/18, patient was seen and examined: On examination he appeared in good health and spirits. Vital signs as documented. Skin warm and dry and without overt rashes. Neck without JVD. Lungs-scattered mild expiratory wheezing was noted on the right, lung sounds are distant bilaterally. Heart exam notable for regular rhythm, normal sounds and absence of murmurs, rubs or gallops. Abdomen unremarkable and without evidence of organomegaly, masses, or abdominal aortic enlargement. Extremities nonedematous. Neuro: Cranial nerves II through XII are grossly intact, no focal motor deficits were noted. Psych: Patient is alert and oriented x3, he does not appear anxious or depressed. Had a discussion with the patient and his , patient qualified for home O2 and I felt he was stable for discharge home on 06/17/18. Patient agreed to use of oxygen at home, his pulse ox on ambulation on room air was 84%, pulse ox on ambulation with O2 at 4 L was 90%. Patient was expected to need portable oxygen also at home. On 06/17/18, patient was seen and examined and felt to be in stable condition for discharge home - Physical Exam Vital Signs Temp Pulse Resp BP Pulse Ox 98.5 F 104 H 18 135/87 H 102 06/17/18 14:00 06/17/18 15:13 06/17/18 15:13 06/17/18 14:00 06/17/18 14:00 Oxygen Flow Rate (L/min) [ 4 AMBULATION with Oxygen] Oxygen Flow Rate (L/min) 3 Oxygen Delivery Method Nasal Cannula Weight: 81.2 kg Body Mass Index (BMI) 26.4 Intake and Output for Last 24 Hours Intake Total 1919 / 1919 900 / 900 Output Total / 2 Balance 1917 900 / 900 Discharge Activity: Return to Normal Activity Weight Bearing Status: Full weight bearing Home Medications: Medications to take at Discharge Albuterol Sulfate [Ventolin Hfa] 1 - 2 puff INHALATION TID 06/14/18 Aspirin 325 mg PO BID 06/14/18 Multivits,Ca,Min/Iron/FA/Lycop [Centrum Men's Tablet] 1 tab PO DAILY 06/14/18 Fluticasone/Salmeterol [Advair 250-50 Diskus] 1 ea IH BID #1 blst.w.dev 06/17/18 Prednisone 10 mg PO UD #30 tab 06/17/18 Following Prescrptions Were Given to Patient: Prednisone 10 mg PO UD #30 tab Fluticasone/Salmeterol [Advair 250-50 Diskus] 1 ea IH BID #1 blst.w.dev Primary Care Physician: [facility] [Primary Care Provider] - Please follow up with your Primary Care Physician in: within 2 weeks Disposition: Home Minutes spent on discharge:: 32 Patient Condition:: Stable Medical Necessity - Tobacco Use Smoking Status: Former smoker Tobacco Use: Non-smoker Meaningful Use Info Meaningful Use Diagnoses (Choose all that apply): None applicable Code Visit Inpatient E AND M: 58291 Disch Hosp 06/18/18 0934 <Electronically signed by Gerson Boyd DO> Date Gerson Boyd DO Cosigner Signature (if applicable): Date CC: [facility]; Gerson Boyd DO Signed DISCHARGE INSTRUCTION Observed: 06/17/2018 Status: F Source: [place] 11:55 AM [facility] REPOSITORY [facility] Medical Records Department [address] [place] [address] Instructions for Home/Discharge Instructions 06/17/18 1152 MR#: [id number] Acct: [id number] Name: LAVERNE SAWYER Rep #: [id number] : 1950 68 From: Gerson Boyd DO PCP: [place] Status: ADM IN - Discharge Diagnoses Current Active Problems: Current Active and Chronic Problems (Last Updated 06/14/18 @ 17:03 by Fidel Blue DO) COPD with acute exacerbation (Acute) You will use the following diet at home:: No restrictions Your food should be the consistency of: Regular Your liquids should be the consistency of: Regular/Thin Discharge Activity: Return to Normal Activity Weight Bearing Status: Full weight bearing Additional Instructions: use oxygen at 4 liters per min continuously Allergies/Adverse Reactions: Allergies No Known Allergies Allergy (Verified 04/17/16 11:27) Medications to take at Discharge Albuterol Sulfate [Ventolin Hfa] 1 - 2 puff INHALATION TID 06/14/18 Aspirin 325 mg PO BID 06/14/18 Multivits,Ca,Min/Iron/FA/Lycop [Centrum Men's Tablet] 1 tab PO DAILY 06/14/18 Fluticasone/Salmeterol [Advair 250-50 Diskus] 1 ea IH BID #1 blst.w.dev 06/17/18 Prednisone 10 mg PO UD #30 tab 06/17/18 The following prescriptions were given: Prednisone 10 mg PO UD #30 tab Fluticasone/Salmeterol [Advair 250-50 Diskus] 1 ea IH BID #1 blst.w.dev Primary Care Physician: [facility] [Primary Care Provider] - Please follow up with your Primary Care Physician in: within 2 weeks Test Results: Test results from this visit will be discussed in further detail at your follow-up appointment, if applicable. 06/17/18 1155 <Electronically signed by Gerson Boyd DO> Date Gerson Boyd DO CC: [facility] CBC W/DIFF, AUTOMATED Collected: 06/17/2018 Status: F Source: [place] 5:20 AM [facility] HOSPITAL REPOSITORY TYPE CODE TESTS RESULT OUT OF RANGE REFERENCE UNITS LAB L100.1000 4.4-11.0 K/mm3 Normal WBC 11.0 LAB L100.1200 4.6-6.2 M/mm3 Low RBC 4.55 LAB L100.1300 13.0-16.5 g/dl Normal HGB 13.6 LAB L100.1400 40-54 % Normal HCT 40.9 LAB L100.1500 80-94 fL Normal MCV 89.9 LAB L100.1600 27.0-32.0 pg Normal MCH 29.9 LAB L100.1700 32-36 g/gl Normal MCHC 33.3 LAB L100.1810 11.6-14.6 % Normal RDW CV 13.5 LAB L100.1820 35.1-43.9 fl High RDW SD 44.4 LAB L100.1900 150-450 K/mm3 Normal PLT 291 LAB L100.2000 6.2-12.0 fl Normal MPV 9.3 LAB L100.2100 47-70 % High NEUT% 88.0 LAB L100.2200 19-41 % Low LY% 5.8 LAB L100.2300 0-10 % Normal MONO% 6.1 LAB L100.2400 0-5 % Normal EO% 0.0 LAB L100.2500 0-1 % Normal BASO% 0.0 LAB L100.2550 0.0-0.9 % Normal IM GRAN % 0.100 Result Comment: IG% - Immature Granulocytes (promyelocytes, myelocytes and metamyelocytes) > 1% indicates that a LEFT SHIFT is Present. LAB L100.2620 2.0-7.7 X10 3/uL High Absolute Neut 9.7 LAB L100.2720 0.83-4.51 X10 3/ul Low Absolute Lymph 0.64 Performed By: #### L100.0100, L500.2500 #### [facility] [address] [place], [place], [address] BASIC METABOLIC Collected: 06/17/2018 Status: F Source: [place] PROFILE (BMP) 5:20 AM [facility] REPOSITORY TYPE CODE TESTS RESULT OUT OF RANGE REFERENCE UNITS LAB L501.0100 74-106 mg/dL High GLU 156 Result Comment: Fasting Glucose result greater than or equal to 126 mg/dL suggests DIABETES MELLITUS per A.D.A. criteria. Please note revised GLUCOSE reference range effective 2017. LAB L501.1000 7-18 mg/dL High BUN 20 LAB L501.1100 0.70-1.30 mg/dL Normal CREAT,SERUM 0.81 Result Comment: The validity of the calculated GFR AND GFRAA in patients over 70 years has not been determined. Clinical correlation is essential. LAB L501.1110 >60 mL/min Normal EST GFR 101 Result Comment: Non- GFR Calc LAB L501.1115 >60 mL/min Normal EST GFR - AA 122 Result Comment: GFR Calc LAB L501.1255 ml/min Normal Estimated CRCL 87.28 LAB L501.1300 10-20 RATIO High BUN/CRE 24.8 LAB L501.2200 8.5-10 mg/dL Normal .1 CA 8.9 LAB L501.5300 136-14 mmol/L Normal 5 NA 140 LAB L501.5600 3.5-5. mmol/L Normal 1 K 4.2 LAB L501.5900 98-107 mmol/L Normal CL 105 LAB L501.6100 21.0-3 mmol/L Normal 2.0 CO2 26.0 LAB L501.6200 5-15 Normal GAP 9 Performed By: #### L100.0100, L500.2500 #### [facility] [address] [facility] [place], [address] HISTORY AND PHYSICAL Observed: 06/14/2018 Status: F Source: [place] EXAM 5:06 PM [facility] REPOSITORY [facility] Medical Records Department [address] [place] [address] History and Physical 06/14/18 1701 MR#: [id number] Acct: [id number] Name: LAVERNE SAWYER Rep #: [id number] : 1950 68 From: Fidel Blue DO PCP: [facility] [place] Status: ADM TERRI Y Location: [place] [address] Problem List (1) COPD with acute exacerbation Status: Acute History of Present Illness Date of Admission: 06/14/18 Chief Complaint: shortness of breath. The patient is a 68 year old M who has been grossly short of breath over the past few weeks. Patient stated to be worse during the colder times but today, patient became very short of breath and dyspneic with the imaging bathroom. Patient presented to the emergency room and his vital signs were stable but patient got up and ambulated and dropped down to 89%. The decision was then made to admit the patient for acute exacerbation of COPD. Patient received 60 mg. Patient is never been admitted for COPD exacerbation before. Patient has been diagnosed with COPD but never has undergone pulmonary function test. [] Past Medical History Medical History: Medical History (Last Updated 06/14/18 @ 17:03 by Fidel Blue DO) Agent orange exposure Z77.098 COPD (chronic obstructive pulmonary disease) J44.9 Allergies No Known Allergies Allergy (Verified 04/17/16 11:27) Home Medications: Ambulatory Orders Medication Instructions Recorded Surgical History: cholecystectomy Lives: Spouse/ Significant Other Smoking Status: Former smoker Tobacco Use: Non-smoker Alcohol: None Drugs: None - *Family History Maternal History Items: - - no COPD Review of Systems Constitutional: Denies: Chills, Fever, Weight Change Eyes: Denies: Blurred vision, Double vision HEENT: Denies: Head Aches, Sinus Congestion, Sinus Drainage Cardiovascular: Denies: Chest Pain, Palpitations Respiratory: Reports: Cough, Shortness of Breath Gastrointestinal: Denies: Abdominal Pain, Nausea, Vomiting Genitourinary: Denies: Dysuria Musculoskeletal: Denies: Joint Pain, Joint Tenderness Skin: Denies: Rash, Wounds Neurological: Denies: Numbness, Tingling, Focal weakness Psychiatric: Denies: Anxiety, Depression Endocrine: Denies: Change in Body Habitus, Heat/ Cold Intolerance Hematologic/ Lymphatic: Denies: Easy Bruising, Easy Bleeding Comment: A 10 point review of systems were negative except as mentioned in the history of present illness and the other review of systems. VTE Information - Inpt Only VTE Present on Admission: No VTE Pharm Prophylaxis ordered?: Yes Patient Problems: Active and Suspected Problems COPD with acute exacerbation (Acute) - Physical Exam General: Alert, Cooperative, No apparent distress HEENT: Atraumatic, Normocephalic Oral: Moist Mucosa, No Gingival or Mucosal Lesions/ Ulcerations Neck: No Nodes, Thyroid Normal Size and Texture Lungs: Diminished, Wheezes Cardiovascular: Regular rate, Regular Rhythm, Normal S1, Normal S2, No murmurs Abdomen: Bowel Sounds Present, Soft, Non Tender, Non-Distended, No Hepato-splenomegaly, Passing Flatus Extremities: No edema, No Calf Tenderness Skin: No rashes, No breakdown Musculoskeletal: No Tenderness to Palpation of Joints or Extremities, No Muscle Wasting Psych/Mental Status: Normal Affect, Appropriate Vital Signs Temp Pulse Resp BP Pulse Ox 36.8 C 106 H 16 131/95 H 18 06/14/18 12:05 06/14/18 16:11 06/14/18 16:11 06/14/18 16:11 06/14/18 16:11 Oxygen Delivery Method Room Air Weight: 86.183 kg Body Mass Index (BMI) 27.2 Laboratory Tests Past 24 Hrs WBC 10.3 RBC 5.27 Hgb 15.8 Hct 46.7 MCV 88.6 MCH 30.0 MCHC 33.8 Clinical Impression(s) from Imaging Studies Chest X-Ray 06/14/18 13:25 IMPRESSION: Hyperinflation. Electronically Signed: Bill Rico MD at 13:47 EST Tel [phone], Service support , Chest CTA 06/14/18 14:33 IMPRESSION: Emphysematous changes worse in the upper lobes. No evidence of pulmonary embolism. Electronically Signed: Bill Rico MD at 15:31 EST Tel [phone], Service support , Assessment/Plan All Active Problems COPD with acute exacerbation (Acute) 1. Acute exacerbation of COPD * Plan is for IV steroids and bronchodilators * Check an amatory pulse ox prior to discharge * Patient need to follow-up with pulmonology as outpatient and have formal pulmonary function tests 2. History of agent orange exposure * It is unclear to me if patient is having overt symptoms with his agent orange. * [facility] with [facility] for [facility] screening and monitor as indicated. 3. DVT prophylaxis with Lovenox Code Visit OBSV E AND M: [id number] Initial observation care L2 06/14/18 9762 <Electronically signed by Fidel Blue DO> Date Fidel Blue DO Cosigner Signature: Date (if applicable) CC: [facility]; Fidel Blue DO Signed EMERGENCY DEPARTMENT Observed: 06/14/2018 Status: F Source: [place] SUMMARY 3:56 PM [facility] REPOSITORY [facility] Medical Records Department [address] [place] [address] Emergency Department Summary 06/14/18 1551 MR#: [id number] Acct: [id number] Name: LAVERNE SAWYER Rep #: [id number] : 1950 68 From: Bear Hill MD PCP: [place], [place] Status: REG ER - ER Visit Summary Date of Service: 06/14/18 Chief Complaint: Shortness of breath, wheezing with productive cough that started 3 days ago History of Present Illness: The patient is a 68 M who has history of COPD who presents with shortness of breath, wheezing and productive cough of green sputum for the past 3 days. He does report rhinorrhea and postnasal drainage. He denies fever, chills or night sweats. He denies ocular, visual or auditory symptoms. He denies chest pain. He does complain of palpitations with walking or activity. He denies abdominal pain, nausea vomiting or diarrhea. He denies black or maroon stool. He denies urologic symptoms. He denies myalgias arthralgias. He denies headache, anesthesia, paresthesia motor weeks. He does complain of generalized weakness. He denies problems with bruising or bleeding. He denies urticaria or angioedema. Physical Examination: Vital signs are remarkable for a blood pressure 163/95 heart rate of 111 and respiration 26. Pulse ox 90% on room air. He is a thin gentleman. Head is atraumatic normocephalic. Pupils are equal round reactive. Extraocular muscles are intact. TMs are pearly white with landmarks noted. Nares patent with no drainage. Posterior pharynx without erythema or exudate. Uvula is midline. There is no dysphonia or dysphasia. Trachea is midline. There is no stridor with auscultation of the neck. Heart is rapid and regular without murmur, gallop or rub. Lungs are remarkable for increased x-ray phase, decreased air movement and wheezing noted throughout. Abdomen soft nontender. There is no asymmetry, swelling, discoloration, leg vein distention, palpable cords or tenderness along the distribution of the deep venous system. Neuro exam is nonfocal Test Results: Chest x-ray reveals hyperaeration with chronic changes consistent with COPD. White count is normal. Electronic panel is unremarkable. CTA was obtained because patient became tachycardic and dyspneic with hypoxia. CTA interpreted by radiologist reveals emphysematous COPD changes. Emergency Department Course and Treatment: Patient was treated with DuoNeb, albuterol for exacerbation COPD. Chest x-ray was obtained to evaluate for pneumonia. CTA was obtained because of the hypoxia with tachycardia. He was reassessed at 1555. He will receive a dose of antibiotics and steroids. He is saturating 93% on 2 L at rest. Treatment Plan: Aggressive pulmonary toilet, aerosols, steroids and antibiotics Disposition: MedSur Impression: 1. Exacerbation of COPD 2. Bronchitis 3. Sinus tachycardia documented monitor 4. Hypoxia This note was generated with [employer] dictation software. It may contain incorrect words, spelling, and punctuation that were not noted in review of the chart prior to signing ED Disposition - Plan for ED Patient: Chief Complaint: Shortness of Breath Referrals: [facility] [Primary Care Provider] - What to do if you have Problems For any increased pain, shortness of breath, bleeding, nausea or vomiting, chest pain, or any unexpected problems, contact your Primary Care Provider. Call [facility] ([phone]) or report to the closest Emergency Room. Call 911 if necessary. 06/14/18 1556 <Electronically signed by Bear Hill MD> Date Bear Hill MD Cosigner Signature (If Indicated): Date CC: [facility] CTA CHEST W/WO Observed: 06/14/2018 Status: F Source: [place] CONTRAST 2:33 PM [facility] RE[facility]ITORY [facility] Imaging Services [address] [place] [address] CTA Chest W/WO Contrast MR#: [id number] Acct: [id number] Name: LAVERNE SAWYER Rep #: [id number] : 1950 M 68 From: Bill Rico MD PCP: [place] Status: REG ER Study: CTA Chest W/WO Contrast Date of Exam: 06/14/18 Exam# [id number] Ordering Dr: Bear Hill MD STUDY: CTA CHEST REASON FOR EXAM: Male, 68 years old. Tachycardia and tachypnea. RADIATION DOSAGE (If Supplied By Facility): CTDIvol = ( 10.86 ) mGy, DLP = ( 579.42 ) mGycm TECHNIQUE: The examination was performed with the intravenous administration of 100 ml of Isovue 370 contrast material. Post-processing of the angiographic images was performed, with multiplanar reformation and 3D reconstruction. Individualized dose optimization techniques were used for this CT. COMPARISON: Comparison is made with prior chest radiograph done earlier in the day. FINDINGS: Normal enhancement of the main pulmonary artery and right and left pulmonary arteries. Normal enhancement of the bilateral peripheral pulmonary arteries. There is no demonstrated pulmonary embolism. Normal thoracic aorta and visualized great vessels. There is no demonstrated aortic dissection. There are calcifications of the coronary arteries. Normal mediastinum. Normal hilar regions. Normal visualized trachea and bronchi. Hyperinflation. Diffuse emphysematous changes with evidence of central lobular emphysematous changes worse in the upper lobes. No infiltration is seen. Normal pleura. Normal chest wall structures. There are degenerative changes of thoracic spine. The patient is status post cholecystectomy. Small hiatal hernia. CT/CTA Chest W/WO Contrast IMPRESSION: Emphysematous changes worse in the upper lobes. No evidence of pulmonary embolism. Electronically Signed: Bill Rico MD at 15:31 EST Tel [phone], Service support , CC: [facility]; Bear Hill MD [employer]: Signed CBC W/DIFF, AUTOMATED Collected: 06/14/2018 Status: F Source: [place] 12:45 PM [facility] REPOSITORY TYPE CODE TESTS RESULT OUT OF RANGE REFERENCE UNITS LAB L100.1000 4.4-11.0 K/mm3 Normal WBC 10.3 LAB L100.1200 4.6-6.2 M/mm3 Normal RBC 5.27 LAB L100.1300 13.0-16.5 g/dl Normal HGB 15.8 LAB L100.1400 40-54 % Normal HCT 46.7 LAB L100.1500 80-94 fL Normal MCV 88.6 LAB L100.1600 27.0-32.0 pg Normal MCH 30.0 LAB L100.1700 32-36 g/gl Normal MCHC 33.8 LAB L100.1810 11.6-14.6 % Normal RDW CV 13.6 LAB L100.1820 35.1-43.9 fl High RDW SD 44.0 LAB L100.1900 150-450 K/mm3 Normal PLT 345 LAB L100.2000 6.2-12.0 fl Normal MPV 9.3 LAB L100.2100 47-70 % Normal NEUT% 67.6 LAB L100.2200 19-41 % Low LY% 13.8 LAB L100.2300 0-10 % Normal MONO% 7.8 LAB L100.2400 0-5 % High EO% 9.7 LAB L100.2500 0-1 % Normal BASO% 0.9 LAB L100.2550 0.0-0.9 % Normal IM GRAN % 0.200 Result Comment: IG% - Immature Granulocytes (promyelocytes, myelocytes and metamyelocytes) > 1% indicates that a LEFT SHIFT is Present. LAB L100.2620 2.0-7.7 X10 3/uL Normal Absolute Neut 6.9 LAB L100.2720 0.83-4.51 X10 3/ul Normal Absolute Lymph 1.42 Performed By: #### L100.0100 #### [facility] [address] [place], [address] BASIC METABOLIC Collected: 06/14/2018 Status: F Source: [place] PROFILE ([facility]) 12:45 PM [facility] REPOSITORY TYPE CODE TESTS RESULT OUT OF RANGE REFERENCE UNITS LAB L501.0100 74-106 mg/dL High GLU 122 Result Comment: Fasting Glucose result from 100 to 125 mg/dL suggests IMPAIRED HOMEOSTASIS per A.D.A. criteria. Please note revised GLUCOSE reference range effective 2017. LAB L501.1000 7-18 mg/dL Normal BUN 11 LAB L501.1100 0.70-1.30 mg/dL Normal CREAT,SERUM 0.85 Result Comment: The validity of the calculated GFR AND GFRAA in patients over 70 years has not been determined. Clinical correlation is essential. LAB L501.1110 >60 mL/min Normal EST GFR 95 Result Comment: Non- GFR Calc LAB L501.1115 >60 mL/min Normal EST GFR - AA 115 Result Comment: GFR Calc LAB L501.1255 ml/min Normal Estimated CRCL 85.88 LAB L501.1300 10-20 RATIO Normal BUN/CRE 12.9 LAB L501.2200 8.5-10 mg/dL Normal .1 CA 9.3 LAB L501.5300 136-14 mmol/L Normal 5 NA 140 LAB L501.5600 3.5-5. mmol/L Normal 1 K 4.0 LAB L501.5900 98-107 mmol/L Normal CL 105 LAB L501.6100 21.0-3 mmol/L Normal 2.0 CO2 23.0 LAB L501.6200 5-15 Normal GAP 12 Performed By: #### L500.2500 #### [facility] [address] [place], [address] CHEST PA AND LATERAL Observed: 06/14/2018 Status: F Source: [place] 12:34 PM [facility] REPOSITORY [facility] Imaging Services [address] [place] [address] Chest PA and Lateral MR#: [id number] Acct: [id number] Name: LAVERNE SAWYER Thaddeus Rep #: [id number] : 1950 M 68 From: Bill Rico MD PCP: [place] Status: REG ER Study: Chest PA and Lateral Date of Exam: 06/14/18 Exam# [id number] Ordering Dr: Bear Hill MD STUDY: X-RAY CHEST REASON FOR EXAM: Male, 68 years old. Dyspnea on exertion. Productive sputum. TECHNIQUE: PA and lateral views of the chest. COMPARISON: None. FINDINGS: EKG electrodes are seen. Hyperinflation. There is no demonstrated pleural abnormality. Normal size heart. Normal mediastinum and josselyn. Normal visualized pulmonary arteries. Normal visualized aortic arch and descending thoracic aorta. There are diffuse degenerative changes of the visualized thoracic spine. Normal visualized ribs, clavicles, and shoulders. There is no demonstrated abnormality of the visualized soft tissue structures of the upper abdomen. RAD/Chest PA and Lateral IMPRESSION: Hyperinflation. Electronically Signed: Bill Rico MD at 13:47 EST Tel [phone], Service support , CC: [facility]; Bear Hill MD Quarry Supervisor Open Pit: Signed ALLERGIES ALLERGIES DATE TYPE / CODE NAME / CODE REACTION SEVERITY SOURCE 04/17/2016 Drug No Known Unknown [facility] Allergy/4160 Allergies/F00 [facility] 46960(SNOMED [id number](RXNOR Repository CT) M) ENCOUNTERS ENCOUNTERS ADMIT/DISCHARGE ACCOUNT ADMITTING ENCOUNTER LOCATION SOURCE NUMBER CLASS 06/16/2018/ [id number] Fidel Blue Inpatient Fernandez [place] 8 8 Encounter [facility] ing:PG6Pxol: Repository DJ677Ozm: 1 06/16/2018 [id number] Fidel Blue Ambulatory BMSBuilding:B [place] 7 MS.Formerly [facility] Repository 06/14/2018 [id number] Fidel Blue Ambulatory BMSBuilding:B [place] 4 MS.Formerly [facility] Repository 06/14/2018 [id number] Fidel [facility] [place] [facility] 06/14/2018 [id number] Fidel Blue Ambulatory BMSBuilding:B [place] 1 MS.Formerly [facility] Repository PAYERS PAYERS ENCOUNTER GUARANTOR PAYER SUBSCRIBER SOURCE 06/16/2018 LAVERNE W Primary Insurance:[place] LAVERNE Treadwell [id number] [facility] Number: [id number] [id number] Repository [address]Iqt: (330) Date:1229-74-62HEG [phone] (HP) SERVICE [id number] [place], [place] [address]CS: [phone] X2003 06/16/2018 Secondary LAVERNE W Fernandez Insurance:[facility]ICARE A [facility]: [facility] Number: [id number] Hospital [id number] Repository Date:2018-06-14 06/16/2018 Tertiary NOT GIVENUNK [place] Insurance:SELF PAY [facility] Number: Effective Repository Date:2018-06-14 06/16/2018 LAVERNE W Primary Insurance:[place] LAVERNE Beltranoster [id number] [facility]: [facility] RDLOT Number: [id number] [id number] Repository [address]Qdr: (330) Date:1919-35-76AWE [phone] (HP) SERVICE [id number] [place], [place] [address]JH: [phone] X2003 06/16/2018 Secondary NOT GIVENUNK [place] Insurance:SELF PAY [facility] Number: Effective Repository Date:2018-06-16 06/14/2018 LAVERNE W Primary Insurance:[place] LAVERNE Treadwell [id number] [facility]: [facility] RDL[facility] Number: [id number] [id number] Repository [address]Mwp: (330) Date:[id number] [phone] () SERVICE [id number] [place], [place] [address]AS: [phone] X2003 06/14/2018 Secondary NOT GIVENUNK Fernandez Insurance:SELF PAY [facility] Number: Effective Repository Date:2018-06-14 06/14/2018 LAVERNE W Primary Insurance:[place] [facility]: [facility] RDL[facility] Number: [id number] [id number] Repository [address]Uaw: (330) Date:0596-75-20NMS [phone] () SERVICE [id number] [place], [place] [address]YA: [phone] X2003 06/14/2018 Secondary NOT GIVENUNK [place] Insurance:SELF PAY [facility] Number: Effective Repository Date:2018-06-14 06/14/2018 LAVERNE W Primary Insurance:[place] LAVERNE Thaddeus [address]: [facility]DL[facility] Number: [id number] [id number] Repository [address]Mxn: (330) Date:[id number] [phone] () SERVICE [id number] [place], [place] [address]YW: [phone] X2003 06/14/2018 Secondary NOT GIVENUNK [place] Insurance:SELF PAY [facility] Number: Effective Repository Date:2018-06-14
== END 2018-06-17 16:00 | disposition home or self-care (01) | DRG 192 ==
LOC: ED 16:13 → MS2 16:38
PROVIDERS: Family Medicine; Emergency Provider Emergency Medicine; Visit Provider Internal Medicine
DX: J44.1 Chronic obstructive pulmonary disease with (acute) exacerbation (principal); R00.0 Tachycardia, unspecified; R09.02 Hypoxemia; Z87.891 Personal history of nicotine dependence; Z77.098 Contact with and (suspected) exposure to other hazardous, chiefly nonmedicinal, chemicals; Z65.5 Exposure to disaster, war and other hostilities
CPT/HCPCS: 36415; 71046; 71275; 80048; 85025; 93005; 94640; 94667; 94668; 97802; 99283; 99406; Q9967; A4216

== ENCOUNTER 2020-10-31 06:06 | Inpatient (IN) | payer OTHER, MEDICARE, SELFPAY ==
[2018-06-14 17:08] VITALS: BMI 26.4
[2020-10-31] VITALS (37 sets, daily range): BP systolic 91–157; BP diastolic 50–100; PULSE 51–89; RESP 14–26; TEMP 36.4–37.3; O2SAT 91–100; BMI 30.5; BMI 30.2
--- NOTE | 2020-10-31 06:09 | EKG12_ITS ---
Test Reason : CP Blood Pressure : / mmHG Vent. Rate : 054 BPM Atrial Rate : 054 BPM P-R Int : 170 ms QRS Dur : 112 ms QT Int : 438 ms P-R-T Axes : 074 -66 022 degrees QTc Int : 415 ms Sinus bradycardia with sinus arrhythmia Left axis deviation Inferior-posterior infarct (cited on or before 14-JUN-2018) ACUTE TN / STEMI Consider right ventricular involvement in acute inferior infarct Abnormal ECG When compared with ECG of 14-JUN-2018 14:43, Vent. rate has decreased BY 41 BPM Borderline criteria for Lateral infarct are no longer Present ST now depressed in Anterior leads Confirmed by BRUNA FUENTES, NEELA ([id number]), assistant editor JOVAN EDMOND ([id number]) on 11/08/2020 10:11:30 A M Referred By: Ashley Askew Confirmed By:KINA MCFARLAND MD
--- NOTE | 2020-10-31 06:09 | ED.RN ---
CALLED FOR EKG PER RN REQUEST, PULLED OLD EKGS FOR
--- NOTE | 2020-10-31 06:15 | EKG12_ITS ---
Test Reason : RHYTHM CHANGE Blood Pressure : / mmHG Vent. Rate : 067 BPM Atrial Rate : 066 BPM P-R Int : 000 ms QRS Dur : 166 ms QT Int : 430 ms P-R-T Axes : 000 -81 036 degrees QTc Int : 454 ms Wide QRS rhythm :Consider AIVR Left axis deviation Inferior infarct , age undetermined ; cannot be excluded Abnormal ECG Confirmed by NAYELY FUENTES, OLINDA ([id number]), film or videotape editor CHIRAG HORTON ([id number]) on 11/03/2020 1:25:20 PM Referred By: Ashley Askew Confirmed By:OLINDA ADLER MD
--- NOTE | 2020-10-31 06:18 | ED.RN ---
[facility]ED [facility] DUE TO STEMI, SPOKE TO LICHA IN THE ER
--- NOTE | 2020-10-31 06:20 | RAD_ITS ---
STUDY: X-RAY CHEST REASON FOR EXAM: Male, 70 years old. chest pain TECHNIQUE: Single AP portable view of the chest. COMPARISON: 06/14/2018 FINDINGS: The lungs are clear and expanded. There is no demonstrated pleural abnormality. Normal size heart. Normal mediastinum and josselyn. Normal visualized pulmonary arteries. Normal visualized aortic arch and descending thoracic aorta. Normal visualized thoracic spine. Normal visualized ribs, clavicles, and shoulders. There is no demonstrated abnormality of the visualized soft tissue structures of the upper abdomen. RAD/Chest 1 View (Portable) IMPRESSION: Normal x-ray examination of the chest. Electronically Signed: Dontrell Rodriguez MD at 6:51 EDT Tel , Service support ,
[2020-10-31] MEDS: TICAGRELOR 90 MG TABLET 180 MG PO (06:22)
[2020-10-31] MEDS: Aspirin 81 MG TAB.CHEW 324 MG PO (06:22)
--- NOTE | 2020-10-31 06:22 | ED.VIS.GEN ---
History of Present Illness Chief Complaint: Chest Pain Informant: Patient Onset: Yesterday Timing: Waxes and wanes Current Severity: Mild Maximum Severity: Moderate Narrative: Patient presents secondary to chest pain. states pain started yesterday and is worse with exertion, better with rest. Patient describes it as a sharp pain in the center of his chest. He denies shortness of breath. He denies any cardiac history. He reported takes aspirin and vitamins daily, no other medications. Past Medical History - Allergies and Home Meds Allergies/Adverse Reactions: Allergies No Known Allergies Allergy (Verified 04/17/16 11:27) Primary Care Physician: [facility] [Primary Care Provider] - Surgical History: cholecystectomy Lives: Spouse/ Significant Other Smoking Status: Former smoker - Family History Maternal Family History: Reports: - - no COPD Review of Systems General: Denies: Chills, Fever Eyes: Denies: Visual changes - bilaterally ENT: Denies: Bilateral ear pain Cardiovascular: Reports: Chest pain Respiratory: Denies: Dyspnea, Cough Gastrointestinal: Denies: Abdominal pain, Vomiting, Diarrhea Genitourinary: Denies: Dysuria Musculoskeletal: Denies: Swelling, Extremity Pain Skin: Denies: Rash Neurological: Denies: Headache Hematologic: Denies: Easy bruising, Easy bleeding Allergy: Denies: Uticaria Physical Exam Vital Signs/Narrative: Vital Signs Temp Pulse Resp BP Pulse Ox 10/31/20 06:07 97.8 F 69 23 H 157/68 H 98 Inital Vital Signs reviewed: Yes General: Well nourished, Well developed Head: Normocephalic Neck: Supple Cardiovascular: Regular rhythm, Bradycardia Respiratory: No distress, CTA bilaterally Abdomen: Soft, Nontender Back: Nontender Extremities: Nontender Skin: Normal color Neurological: Alert, Oriented x3 Psychological: Normal affect Diagnostic/Tx/Re-eval Chest X-Ray - ED: 1 View, Read by ED Physician, Normal, Heart, Lungs, Mediastinum 10/31/20 06:20 Chest 1 View (Portable) [RAD] Stat Laboratory Results 10/31/20 10/31/20 10/31/20 06:18 06:18 06:18 WBC 11.7 H RBC 5.16 Hgb 15.6 Hct 46.8 MCV 90.7 MCH 30.2 MCHC 33.3 RDW Std Deviation 43.5 RDW Coeff of Rose 13.2 Plt Count 354 MPV 9.0 Immature Gran % (Auto) 0.300 Neut % (Auto) 77.9 H Lymph % (Auto) 16.1 L [place] % (Auto) 5.1 Eos % (Auto) 0.3 Baso % (Auto) 0.3 Absolute Neuts (auto) 9.1 H Absolute Lymphs (auto) 1.88 Nucleated RBC % 0 PT 13.5 INR 1.1 APTT 25.6 Sodium 135 L Potassium 4.2 Chloride 107 Carbon Dioxide 23.0 Anion Gap 5 BUN 17 Creatinine 1.08 Estim Creat Clear Calc 63.64 Est GFR (MDRD) Af Amer 87 Est GFR (MDRD) Non-Af 72 BUN/Creatinine Ratio 15.7 Glucose 176 H Calcium 9.1 Troponin I 2.000 H* - EKG Initial EKG Interpretation: Sinus Bradycardia - Sinus bradycardia at [address] elevation noted in 3 and aVF with reciprocal ST depression in 1, aVL, V2, V3. - Medical Decision Making STEMI alert was called upon review of EKG. Patient states that this time he does not feel any chest pain. I spoke with STEMI on-call doc. Patient is given aspirin, Brilinta, heparin. STEMI doc is in route to take the patient to the [facility]. - Critical Care Time Critical care time (excluding procedures): 30-74 minutes, Discussing w/Patient &/or Family/Retail General Manager, Discussing w/Consultants, Arranging Admission or Transfer, Performing Direct Patient Care at Bedside ED Disposition - Plan for ED Patient: Disposition: Acute Care [facility] Diagnosis: STEMI (ST elevation myocardial infarction) [facility] [[facility] -
[2020-10-31] MEDS: Heparin Injection (Vial) 5,000 UNIT/ML VIAL 4000 UNIT IV (06:23)
[2020-10-31] MEDS: 0.9% Normal Saline 1,000 ML 150 ML IV ×4 (06:24→22:19)
[2020-10-31 06:27] LABS: Absolute Lymphocyte Count 1.88 X10^3/uL (0.83-4.51); Absolute Neutrophil Count 9.1 X10^3/uL (2.0-7.7); Basophil# 0.04 X10^3/uL; Basophil% 0.3 % (0-1); Eosinophil# 0.04 X10^3/uL; Eosinophils% 0.3 % (0-5); Hematocrit 46.8 % (40-54); Hemoglobin 15.6 g/dL (13.0-16.5); Lymphocyte # 1.88 X10^3/ul (0.83-4.51); Lymphocyte % 16.1 % (19-41); Mean Corp Hgb Conc 33.3 g/dL (32-36); Mean Corpuscular Hgb 30.2 pg (27.0-32.0); Mean Corpuscular Volume 90.7 fL (80-94); Monocyte% 5.1 % (0-10); NRBC Flagged by Analyzer 0 % (0-5); Neutrophil # 9.08 X10^3/uL (2.7-7.7); Neutrophil % 77.9 % (47-70); Platelet Count 354 K/mm3 (150-450); RBC Distribution Width CV 13.2 % (11.6-14.6); RBC Distribution Width SD 43.5 fl (35.1-43.9); Red Blood Count 5.16 M/mm3 (4.6-6.2); White Blood Count 11.7 K/mm3 (4.4-11.0)
[2020-10-31 06:32] LABS: International Normalized Ratio 1.1; Prothrombin Time (Protime)PT. 13.5 SECONDS (11.7-14.9)
[2020-10-31 06:33] LABS: Partial Thromboplast Time 25.6 Seconds (24.1-36.2)
[2020-10-31 06:41] LABS: Anion Gap 5 (5-15); BUN 17 mg/dL (7-18); BUN/Creat Ratio 15.7 RATIO (10-20); Calcium,Total 9.1 mg/dL (8.5-10.1); Chloride 107 mmol/L (98-107); Creatinine, Serum 1.08 mg/dL (0.70-1.30); EST Glomerular Filtration Rate 72 mL/min (>60); Est Glom Filt Rate - Afr Amer 87 mL/min (>60); Estimated Creatinine Clearance 63.64 ml/min; Glucose 176 mg/dL (74-106); Potassium 4.2 mmol/L (3.5-5.1); Sodium Level 135 mmol/L (136-145)
--- NOTE | 2020-10-31 08:35 | NURSING ---
0835: Patient arrived from [facility] labor, hematoma noted to right forearm. ammunition assembly laborer staff present, and Beny held pressure to hematoma for [address] Askew called to bedside to further assess hematoma. After pressure held, patients arm was soft. Dr. Askew arrived at bedside and sandor wrap applied to arm. Per Dr. Askew, if arm worsens to order a stat ultrasound and contact a vascular surgeon. Will continue to monitor. 0930: Arm remains soft, no hematoma noted. Sandor wrap on 1030: Arm remains soft, no hematoma noted. Sandor wrap on 1200: Arm remains soft, no hematoma noted. Sandor wrap on 1400: No change in arm 1600: Some bruising noted to distal forearm, however strong pulse present and arm remains soft. Sandor wrap on.
--- NOTE | 2020-10-31 08:45 | RAD_ITS ---
STUDY: X-RAY CHEST REASON FOR EXAM: Male, 70 years old. chest pain -- If not obtained within past 24 hours. TECHNIQUE: Single AP portable view of the chest. COMPARISON: None. FINDINGS: The lungs are clear and expanded. There is no demonstrated pleural abnormality. Normal size heart. Normal mediastinum and josselyn. Normal visualized pulmonary arteries. Normal visualized aortic arch and descending thoracic aorta. Normal visualized thoracic spine. Healed fracture the midshaft right clavicle. There is no demonstrated abnormality of the visualized soft tissue structures of the upper abdomen. RAD/Chest 1 View (Portable) IMPRESSION: Normal x-ray examination of the chest. Electronically Signed: Dontrell Rodriguez MD at 9:28 EDT Tel , Service support ,
--- NOTE | 2020-10-31 08:45 | EKG12_ITS ---
Test Reason : POST PCI Blood Pressure : / mmHG Vent. Rate : 059 BPM Atrial Rate : 059 BPM P-R Int : 198 ms QRS Dur : 112 ms QT Int : 416 ms P-R-T Axes : 052 -69 -51 degrees QTc Int : 411 ms Sinus bradycardia Left axis deviation Inferior infarct , age undetermined Abnormal ECG Confirmed by NYAELY FUENTES, OLINDA ([id number]), cotton machine operator CHIRAG HORTON ([id number]) on 11/03/2020 1:25:35 PM Referred By: Ashley Askew Confirmed By:OLINDA ADLER MD
--- NOTE | 2020-10-31 09:37 | PCI.CARDCATH ---
PCI Cardiac Cath Report PCI Report: Procedure performed; 1. Successful PCI of the culprit, occluded distal RCA with predilatation and placement of drug-eluting stent 3 x 20 mm Synergy MR, overlap by 3 x 32 mm. And achievement of 0% stenosis post PCI and MAO-3 flow. Initial MAO 0 with occluded distal RCA. 2. IFR measurement of mid RCA with IFR [0.88?0.87] #3 moderate sedation 4. Selective coronary graft 5. Left ventriculogram 6. Placement of TR band to the right radial arteriotomy site. Preprocedure diagnosis; 70-year-old patient who had symptoms of chest pain yesterday and symptoms got worse and came early this morning around 6:00 to the ER at [facility] where he had an EKG abnormal with evidence of change in the inferior lead with the elevated cardiac biomarkers with troponin 2.0 consistent with a clinical diagnosis of non-ST elevation myocardial infarction. His symptoms of chest pain improved significantly and he denied symptoms of chest pain after given medical treatment in the ER with the heparin, Brilinta, aspirin. He usually see primary doctors at [facility], quit smoking 2002, had a history of COPD No history of diabetes no history of hypertension no prior cardiac history. at bedside in the ER was able to also give detailed history about his symptoms of chest pain which started yesterday patient declined to come to the hospital. However when symptoms got worse this morning he came to the ER. Based on his clinical presentation we proceed with cardiac catheterization Consent; Risk and benefit of the procedure explained detail patient opted to proceed informed consent obtained Moderate sedation. Moderate sedation was given with Versed and fentanyl. Procedure in detail; Access obtained from the right radial artery and a 6 [place] sheath placed in the right radial artery, heparin, verapamil and nitroglycerin was given through the sheath. Diagnostic catheters and interventional equipment used; 1. 5 [place] Hanover catheter 2. 6 [place] JR4 guide catheter 3. 0.01 run-through extra floppy 180 cm straight wire 4. Coronary FFR wire 5. Drug-eluting stent Synergy MR 3 x 20 mm 6. Drug-eluting stent Synergy MR YANNI 3 x 32 7. Predilatation balloon 2.5 x 15, postdilatation balloon NC Emerge MR 3.25 x 15 and 3.5 x 20 mm. Procedure in detail; We will proceed with the 5 [place] catheter engaged the left coronary ostium multiple views of the left coronary system were obtained, following this the same catheter was used to engage the right coronary system and multiple views of the records to be obtained. Following this angiographic views reviewed and then will proceed with the interventional plan for the occluded distal RCA. We crossed the lesion with BMW wire and then predilated the lesion distally using 2.5 x 15 mm, balloon followed by placement of drug-eluting stent 3 x 20 mm postdilated with 3.25 balloon, IFR was checked for the mid RCA lesion which is very significant 0.88/0.817 we will proceed with overlapping stent to cover the mid RCA lesion which is around 50-60% angiographically, extended the stent 3 x 32 mm and we postdilated using 3.5 x 20 mm, MAO-3 flow achieved in the RCA Left ventriculogram obtained 30 degree RANDHAWA projection. Hemodynamics; 1. LVEDP measuring around 14 mmHg 2. Mild LV systolic dysfunction ejection fraction in the range of 45-50%, with inferobasal hypokinesia 3. No mitral regurgitation noted Coronary angiography;. 1. Cephalad distal left main with extension of calcification to the proximal LAD Left main coronary had 30 to 40% distal, bifurcating into left anterior descending and the left circumflex. 2. Left anterior descending had eccentric lesion of around 60% - 70% with a large D1 and D2. Ostial left circumflex had around 40 to 50% stenosis Conclusion and recommendation Patient culprit lesion is occluded distal RCA with successful PCI and stent using drug-eluting stent as a specified Patient will be admitted to the ICU hematoma was noted in the right hand, Integrilin discontinued and bandage applied to the right hand and will be observed in the intensive care unit. And if needed we will have the vascular consult and ultrasound of the right hand. Ashley Askew MD,FACC,[facility]
[2020-10-31 11:01] LABS: Absolute Lymphocyte Count 1.05 X10^3/uL (0.83-4.51); Absolute Neutrophil Count 9.5 X10^3/uL (2.0-7.7); Basophil# 0.03 X10^3/uL; Basophil% 0.3 % (0-1); Eosinophil# 0.01 X10^3/uL; Eosinophils% 0.1 % (0-5); Hematocrit 43.7 % (40-54); Hemoglobin 14.5 g/dL (13.0-16.5); Lymphocyte # 1.05 X10^3/ul (0.83-4.51); Lymphocyte % 9.4 % (19-41); Mean Corp Hgb Conc 33.2 g/dL (32-36); Mean Corpuscular Hgb 30.1 pg (27.0-32.0); Mean Corpuscular Volume 90.9 fL (80-94); Mean Platelet Vol. 9.1 fl (6.2-12.0); Monocyte# 0.49 X10^3/uL; Monocyte% 4.4 % (0-10); NRBC Flagged by Analyzer 0 % (0-5); Neutrophil % 85.4 % (47-70); Platelet Count 318 K/mm3 (150-450); RBC Distribution Width CV 13.4 % (11.6-14.6); RBC Distribution Width SD 44.9 fl (35.1-43.9); Red Blood Count 4.81 M/mm3 (4.6-6.2); White Blood Count 11.1 K/mm3 (4.4-11.0)
[2020-10-31 11:12] LABS: International Normalized Ratio 1.2; Prothrombin Time (Protime)PT. 14.1 SECONDS (11.7-14.9)
[2020-10-31 11:13] LABS: Anion Gap 8 (5-15); BUN 16 mg/dL (7-18); BUN/Creat Ratio 15.8 RATIO (10-20); Calcium,Total 8.3 mg/dL (8.5-10.1); Chloride 107 mmol/L (98-107); Creatinine, Serum 1.01 mg/dL (0.70-1.30); EST Glomerular Filtration Rate 77 mL/min (>60); Est Glom Filt Rate - Afr Amer 94 mL/min (>60); Estimated Creatinine Clearance 68.06 ml/min; Glucose 145 mg/dL (74-106); Partial Thromboplast Time 77.3 Seconds (24.1-36.2); Potassium 3.9 mmol/L (3.5-5.1); Sodium Level 136 mmol/L (136-145)
[2020-10-31] MEDS: Albuterol 2.5 MG/3 ML VIAL.NEB. INHALATION ×2 (12:01→20:45)
--- NOTE | 2020-10-31 12:50 | NURSING ---
This RN explained to patient that the hospital is giving him his aerosols. Patient wants his inhalers from home, does not want the medication from hospital. This RN attempted to explain to patient that he can not double dose his inhalers along with the aerosol/nebulizers. Patient became angry with this RN stating you are taking away my freedom, I fought in [place] for, I want my puffers. This RN told the patient we are not taking away his freedom, trying explain to him hospital policy and protocols. user experience designerVERA Molina at bedside to explain to patient as well. Patient continues to refuse hospital aerosols and demands his inhalers from home. Dr. Wilson notified, Dr. Wilson at bedside and per MD TOVAR for patient to take his own medication. Patients will bring in his inhalers from home. This RN also explained to patient that the field research assistant wants him bedrest due to his irregular/abnormal heart rhythm post MN. The patient initially became frustrated with staff but seemed to calm down after further explanation.
[2020-10-31] MEDS: DOPamine IV 800 MG/250 ML IV.SOLN. 8.7 MG CONT INF (13:34)
--- NOTE | 2020-10-31 13:48 | HP.PCM_ITS ---
Problem List (1) Leukocytosis Status: Acute (2) Hyperglycemia Status: Acute (3) COPD with acute exacerbation Status: Inactive (4) STEMI (ST elevation myocardial infarction) Status: Acute History of Present Illness Date of Admission: 10/31/20 Mr. Saweyr is a 70 year old WM with a past medical history of agent orange exposure in [place], COPD, and remote history of tobacco abuse who presented to [facility] on 10/31/2020 at 622 this a.m. complaining of chest pain. He reports that he had been having intermittent chest pain over the last 3 days that is been waxing and waning. He described it as sharp and in the center of his chest but denied associated shortness of breath, nausea, vomiting, or diaphoresis. At baseline he takes medications for his COPD including Advair and albuterol but he takes no other prescribed medications. His EKG in the emergency department showed ST elevation in lead III and aVF with reciprocal ST depression in lead I, aVL, V2, and V3. STEMI alert was called and the patient was given aspirin, Brilinta, and heparin. He was taken emergently to the [facility] where a occluded distal right RCA was found. Overlapping stents were placed and he was admitted to the ICU. He is currently denying any chest pain. He unfortunately experienced a post procedural right forearm hematoma that is improving. Past Medical History Medical History: Medical History (Last Reviewed 10/31/20 @ 14:[address] Anny Wilson, DO) Agent orange exposure Z77.098 COPD (chronic obstructive pulmonary disease) J44.9 Allergies No Known Allergies Allergy (Verified 04/17/16 11:27) Home Medications: Ambulatory Orders Medication Instructions Recorded Albuterol Sulfate [Ventolin Hfa] 1 - 2 puff INHALATION TID PRN 06/14/18 Aspirin 325 mg PO BID 06/14/18 Multivit-Mins/Iron/Folic/Lycop 1 tab PO DAILY 06/14/18 [Centrum Men's Tablet] Fluticasone/Salmeterol [Advair 1 each IH BID 10/31/20 250-50 Diskus] Vitamin C 10/31/20 Surgical History: cholecystectomy Lives: Spouse/ Significant Other Smoking Status: Former smoker Tobacco Use: Cigarettes Alcohol: Rare Drugs: None - *Family History Maternal History Items: - - no COPD Review of Systems Constitutional: Denies: Anorexia, Chills, Fever, Night Sweats, Malaise, Weakness, Weight Change, Fatigue Eyes: Denies: Blurred vision, Cataracts, Conjunctivae Inflammation, Double vision, Drainage, Eyelid Inflammation, Pain, Redness, Vision Change HEENT: Denies: Difficulty Hearing, Difficulty Swallowing, Ear Pain, Eye Pain, Head Aches, Nasal bleeding, Nasal Congestion, Post Nasal Drip, Sinus Congestion, Sinus Drainage, Sore Throat, Visual Changes Cardiovascular: Reports: Chest Pain - Now resolved, Chest Pressure. Denies: Chest Tightness, Edema, Heaviness, Light Headedness, Orthopnea, Palpitations, Paroxysmal Noc. Dyspnea, Syncope Respiratory: Denies: Cough, Hemoptysis, Pleuritic Pain, Shortness of Breath, Shortness of breath at rest, Shortness of breath upon exertion, Sputum production, Wheezing Gastrointestinal: Denies: Abdominal Pain, Constipation, Diarrhea, Dyspepsia, Hematemesis, Hematochezia, Nausea, Melena, Vomiting Genitourinary: Denies: Dysuria, Frequency, Hematuria, Hesitancy, Incontinence, Nocturia, Retention, Urgency Musculoskeletal: Reports: Arm Pain - Right. Denies: Back Pain, Foot Pain, Hand Pain, Joint Pain, Joint stiffness, Joint swelling, Joint Tenderness, Leg Pain, Muscle pain, Neck Pain, Shoulder Pain Skin: Denies: Dryness, Jaundice, Lesions, Pruritis, Rash, Skin Changes, Wounds Neurological: Denies: Balance problems, Blurred vision, Double vision, Change in Speech, Slurred speech, Confusion, Difficulty swallowing, Focal weakness, Headaches, Incoordination, Numbness, Tingling, Tremor, Seizures Psychiatric: Denies: Anxiety, Depression Endocrine: Denies: Change in Body Habitus, Heat/ Cold Intolerance, Polydipsia, Polyuria Hematologic/ Lymphatic: Denies: Adenopathy, Anemia, Easy Bruising, Easy Bleeding, Petechiae, Purpura VTE Information - Inpt Only VTE Present on Admission: No VTE Mechan Device Prophylaxis: None VTE Pharm Prophylaxis ordered?: Yes Patient Problems: Active and Suspected Problems (Last Updated 06/14/18 @ 17:[address] Fidel Blue, DO) STEMI (ST elevation myocardial infarction) (Acute) - Physical Exam Vitals/I&O's: Vital Signs Temp Pulse Resp BP Pulse Ox 99.2 F H 74 18 109/63 97 10/31/20 12:00 10/31/20 13:34 10/31/20 13:00 10/31/20 13:00 10/31/20 12:00 Oxygen Flow Rate (L/min) 2 Oxygen Delivery Method Room Air Weight: 92.7 kg Body Mass Index (BMI) 30.2 Intake and Output for Last 24 Hours 10/29/20 10/30/20 10/31/20 23:59 23:59 23:59 Intake Total 400 / 400 Output Total 200 / 200 Balance 200 / 200 General: Alert, Oriented x3, Cooperative, No apparent distress, Well developed, Well nourished, - - Older white male sitting up in bed, watching television, appears comfortable, nontoxic HEENT: Atraumatic, PERRLA, EOMI, Normocephalic, EAC Clear Oral: Moist Mucosa, No Gingival or Mucosal Lesions/ Ulcerations, - - Blood on his lips-patient reports he bit his tongue Neck: Supple, Negative Carotid Bruits, Negative Hepatojugular Reflux, Trachea Midline, Thyroid Normal Size and Texture Lungs: Clear to auscultation, No rhonchi, No wheeze, No rales, Diminished Cardiovascular: Regular rate, Regular Rhythm, Normal S1, Normal S2, No murmurs, No Ectopic Activity, No rub noted, No Gallop Abdomen: Bowel Sounds Present, Soft, Non Tender, Non-Distended, No Hepato- splenomegaly Extremities: No clubbing, No cyanosis, No edema, Capillary Refill Less than 3 Seconds, Peripheral Pulses Normal Skin: No rashes, No breakdown Musculoskeletal: No Tenderness to Palpation of Joints or Extremities, No Muscle Wasting, Arthritic Changes Lymphatic: No Cervical, Supraclavicular, or Inguinal Adenopathy Neurological: Cranial nerves II-XII grossly intact, Deep Tendon Reflexes 2+/4 and Symmetrical, Motor Exam 5/5 strength throughout, Muscle tone normal, Coordination normal Laboratory Results 10/31/20 06:18: WBC 11.7 H, RBC 5.16, Hgb 15.6, Hct 46.8, MCV 90.7, MCH 30.2, MCHC 33.3, RDW Std Deviation 43.5, RDW Coeff of Rose 13.2, Plt Count 354, MPV 9.0, Immature Gran % (Auto) 0.300, Neut % (Auto) 77.9 H, Lymph % (Auto) 16.1 L, [place] % (Auto) 5.1, Eos % (Auto) 0.3, Baso % (Auto) 0.3, Absolute Neuts (auto) 9.1 H, Absolute Lymphs (auto) 1.88, Nucleated RBC % 0 10/31/20 06:18: PT 13.5, INR 1.1, APTT 25.6 10/31/20 06:18: Sodium 135 L, Potassium 4.2, Chloride 107, Carbon Dioxide 23.0, Anion Gap 5, BUN 17, Creatinine 1.08, Estim Creat Clear Calc 63.64, Est GFR (MDRD) Af Amer 87, Est GFR (MDRD) Non-Af 72, BUN/Creatinine Ratio 15.7, Glucose 176 H, Calcium 9.1, Troponin I 2.000 H* 10/31/20 10:51: WBC 11.1 H, RBC 4.81, Hgb 14.5, Hct 43.7, MCV 90.9, MCH 30.1, MCHC 33.2, RDW Std Deviation 44.9 H, RDW Coeff of Rose 13.4, Plt Count 318, MPV 9.1, Immature Gran % (Auto) 0.400, Neut % (Auto) 85.4 H, Lymph % (Auto) 9.4 L, [place] % (Auto) 4.4, Eos % (Auto) 0.1, Baso % (Auto) 0.3, Absolute Neuts (auto) 9.5 H, Absolute Lymphs (auto) 1.05, Nucleated RBC % 0 10/31/20 10:51: PT 14.1, INR 1.2, APTT 77.3 H 10/31/20 10:51: Sodium 136, Potassium 3.9, Chloride 107, Carbon Dioxide 21.0, Anion Gap 8, BUN 16, Creatinine 1.01, Estim Creat Clear Calc 68.06, Est GFR (MDRD) Af Amer 94, Est GFR (MDRD) Non-Af 77, BUN/Creatinine Ratio 15.8, Glucose 145 H, Calcium 8.3 L Current Medications Albuterol Sulfate (Albuterol 2.5 Mg/3 Ml Vial.Neb.) 2.5 mg INHALATION TID PRN PRN PRN Reason: SOB/wheezing Albuterol Sulfate (Albuterol 2.5 Mg/3 Ml Vial.Neb.) 2.5 mg INHALATION Q6HWA.RT AIDA Last Admin: 10/31/20 12:01 Dose: 2.5 mg Documented by: Aspirin (Aspirin 81 Mg Tab.Chew) 81 mg PO DAILY@0800 AIDA Atorvastatin Calcium (Atorvastatin Calcium 40 Mg Tablet) 40 mg PO QHS AIDA Budesonide (Budesonide Respules 0.5 Mg/2 Ml Ampul.Neb.) 0.5 mg INHALATION Q12H.RT AIDA Carvedilol (Carvedilol 3.125 Mg Tablet) 3.125 mg PO BID AIDA Sodium Chloride () 1,000 mls @ 150 mls/hr IV .Q6H40M AIDA Last Admin: 10/31/20 09:18 Dose: 150 mls/hr Documented by: Dopamine HCl/Dextrose () 800 mg in 250 mls @ 8.691 mls/hr CONT INF .[id number] AIDA; Protocol Last Admin: 10/31/20 13:34 Dose: 5 mcg/kg/min, 8.7 mls/hr Documented by: Sodium Chloride (0.9% Saline Lock 10 Ml Syringe) 10 - 40 ml IV UD PRN PRN Reason: SALINE FLUSH Assessment/Plan All Active Problems (Last Updated 06/14/18 @ 17:[address] Fidel Blue, DO) STEMI (ST elevation myocardial infarction) (Acute) Leukocytosis (Acute) Hyperglycemia (Acute) STEMI -Troponin was 4 on admission -EKG showed ST elevation in lead III and aVF with reciprocal ST depression in lead I, aVL, V2, V3 -Was taken emergently to the [facility] where a distal RCA occlusion was noted to YANNI with distal overlap were placed -EF with LV gram showed a 45 to 50% EF with inferobasilar hypokinesis -Patient was given Brilinta this morning -I suspect cardiology will start Brilinta twice daily tomorrow -Aspirin 81 mg to initiate tomorrow -Continue Lipitor 80 mg nightly -Hold Coreg for now as patient was started on dopamine for some ventricular arrhythmia -Hold lisinopril at this time for borderline pressures -Initiate goal-directed therapy when appropriate -Check lipids and hemoglobin A1c -Echo pending -Cardiology is following COPD -Patient would like to take his home inhalers rather than the therapeutic substitutions used here -His is bringing in his inhalers -Continue Advair 250-51 inhalation twice daily and as needed albuterol -Remote history of tobacco abuse Right forearm hematoma status post catheterization -Improving with compression -No signs of compartment syndrome -Continue to monitor -If worsens consult vascular and check vascular studies DVT prophylaxis -Initiate heparin tomorrow CODE STATUS -Full code Inpatient E&M: 51673 Init Hosp L2
[2020-10-31 14:50] LABS: Potassium 3.8 mmol/L (3.5-5.1)
[2020-10-31] MEDS: Sodium Chloride 0.65% 1 SPRAY SPRAY.BTL NASAL ×2 (18:32→20:38)
--- NOTE | 2020-10-31 19:15 | NURSING ---
Bedside handoff received at this time. Pts right arm/wrist assessed with offgoing rn. Pt with bruising noted to right wrist/hand areas, all soft and nontender. right fa areas soft, nontender and bruising noted, jenifer wrap redone at this time. right radial puncture site drsg is c/d/i. While doing bedside handoff pt becoming argumentative and agitated about how he takes his home inhalers/aerosols. Pt started threatening this rn and offgoing rn with acting out in violence toward us, pt voiced that we were taking away his rights and that we didn't know what we were doing. This rn attempting to de-escalate pt, pt made aware of this rn's plan to call his to verify doses/timing of his inhalers/aerosols and to call md for any further orders/clarifications of meds.
[2020-10-31] MEDS: Atorvastatin Calcium 40 MG Tablet PO (20:40)
--- NOTE | 2020-10-31 22:46 | ECHOCS_ITS ---
Reason For Study: Post Stent/Cath follow up Procedure This was a 2D Doppler, Color Flow transthoracic echocardiogram. The study was technically difficult. Contrast injection was performed. Exam performed portable in ICU/CCU. Left Ventricle Normal LV size. The estimated ejection fraction is 60 %. No evidence for diastolic dysfunction. No regional wall motion abnormalities noted. Right Ventricle Normal RV size. Normal systolic function. Atria Normal left atrium. Normal right atrium. No doppler evidence for ASD. Mitral Valve There is no mitral valve stenosis. No mitral valve insufficiency. Tricuspid Valve There is no tricuspid stenosis. No tricuspid valve insufficiency. Aortic Valve Trisinus/trileaflet aortic valve. There is no aortic stenosis. No aortic valve insufficiency. Pulmonic Valve There is no pulmonic valvular stenosis. No pulmonic valve insufficiency. Great Vessels Normal aortic root. Pericardium/Pleural No pericardial effusion. Medication Diluted definity 4ml given slow IV push to enhance endocardial definition. MMode/2D Measurements & Calculations LVIDd: 4.5 cm IVSd: 1.5 cm LA dimension: 3.2 cm LVIDs: 3.0 cm LVPWd: 1.1 cm FS: 33.3 % LAV(MOD-bp): 64.1 ml LA A4 area: 21.2 cm2 RA A4 area: 14.5 cm2 LAV(MOD-bp) Indexed: 30.6 ml/m2 LAV(MOD-sp2): 61.6 ml LAV(MOD-sp4): 59.9 ml Time Measurements MV dec time: 0.21 sec Doppler Measurements & Calculations MV E max js: 65.3 cm/sec Lat Peak E' Js: 10.3 cm/sec Med Peak E' Js: 10.2 cm/sec MV A max js: 77.0 cm/sec E/E' lat: 6.4 E/E' med: 6.4 MV E/A: 0.85 MV V2 max: 84.7 cm/sec MV P1/2t max js: 79.8 cm/sec Ao V2 max: 130.5 cm/sec MV max P.9 mmHg MV P1/2t: 48.1 msec Ao max P.8 mmHg MV V2 mean: 47.4 cm/sec MV dec slope: 485.7 cm/sec2 MV mean P.1 mmHg MV V2 VTI: 26.3 cm MVA(P1/2t): 4.6 cm2 LV V1 max: 109.0 cm/sec PA V2 max: 101.1 cm/sec LV V1 max P.7 mmHg ECHO/Echo Complete W/ Contrast Interpretation Summary The estimated ejection fraction is 60 %. No evidence for diastolic dysfunction. Contrast injection was performed. Ordering Physician: Ashley Askew Referring Physician: Ashley Askew Performed By: Ilir Zhou RCS
[2020-10-31] MEDS: Acetaminophen 325 MG Tablet 650 MG PO (23:17)
[2020-11-01] VITALS (27 sets, daily range): BP systolic 82–136; BP diastolic 55–92; PULSE 59–84; RESP 16–24; TEMP 36.6–37.1; O2SAT 92–97
[2020-11-01 03:23] LABS: Absolute Lymphocyte Count 1.52 X10^3/uL (0.83-4.51); Absolute Neutrophil Count 5.5 X10^3/uL (2.0-7.7); Basophil# 0.03 X10^3/uL; Basophil% 0.4 % (0-1); Eosinophils% 1.3 % (0-5); Hemoglobin 12.9 g/dL (13.0-16.5); Lymphocyte # 1.52 X10^3/ul (0.83-4.51); Lymphocyte % 19.5 % (19-41); Mean Corp Hgb Conc 33.1 g/dL (32-36); Mean Corpuscular Hgb 30.5 pg (27.0-32.0); Mean Corpuscular Volume 92.2 fL (80-94); Mean Platelet Vol. 9.4 fl (6.2-12.0); Monocyte# 0.62 X10^3/uL; NRBC Flagged by Analyzer 0 % (0-5); Neutrophil % 70.5 % (47-70); Platelet Count 285 K/mm3 (150-450); RBC Distribution Width CV 13.4 % (11.6-14.6); RBC Distribution Width SD 45.5 fl (35.1-43.9); Red Blood Count 4.23 M/mm3 (4.6-6.2); White Blood Count 7.8 K/mm3 (4.4-11.0)
[2020-11-01] MEDS: 0.9% Normal Saline 1,000 ML 150 ML IV ×3 (04:13→17:59)
[2020-11-01 04:49] LABS: ALB/GLOB Ratio 1.2 RATIO (0.9-2.4); AST(SGOT) 207 U/L (15-37); Alanine Aminotransfer ALT/SGPT 48 U/L (16-61); Albumin, Serum 3.2 g/dL (3.2-5.0); Alkaline Phosphatase 74 U/L (45-117); Anion Gap 10 (5-15); BUN 15 mg/dL (7-18); BUN/Creat Ratio 16.1 RATIO (10-20); Calcium,Total 7.9 mg/dL (8.5-10.1); Chloride 111 mmol/L (98-107); Cholesterol 167 mg/dL (200); Creatinine, Serum 0.93 mg/dL (0.70-1.30); EST Glomerular Filtration Rate 85 mL/min (>60); Est Glom Filt Rate - Afr Amer 103 mL/min (>60); Estimated Creatinine Clearance 73.91 ml/min; Globulin 2.7 g/dL (2.2-4.2); Glucose 126 mg/dL (74-106); High Density Lipoprotein 39 mg/dL; Potassium 3.5 mmol/L (3.5-5.1); Protein, Total 5.9 g/dL (6.4-8.2); Sodium Level 141 mmol/L (136-145); Thyroid Stim Hormone (TSH) 2.71 uIU/mL (0.358-3.74); Triglycerides 114 mg/dL; Very Low Density Lipoprotein 23 mg/dL (5-40)
[2020-11-01] MEDS: Albuterol 2.5 MG/3 ML VIAL.NEB. INHALATION ×2 (07:25→19:24)
[2020-11-01] MEDS: Aspirin 81 MG TAB.CHEW PO (08:11)
[2020-11-01] MEDS: TICAGRELOR 90 MG TABLET PO ×2 (08:12→21:00)
[2020-11-01 08:28] LABS: Hemoglobin A1c 6.9 % (3.8-5.6)
--- NOTE | 2020-11-01 08:28 | CRPHASE1 ---
Patient Communication Former Patient:: Phase I PHII Cardiac Rehab Discussed with Patient:: Yes Guide to Cardiac Rehab Given to Patient:: Yes Cardiac Rehab Facility Choice List Given to Patient:: Yes Choice Program [facility] CR PHII:: Communication Given to CR Choice Program Other:: Communication Given to CR Customer Engagement Specialist:: Ashley Askew Phase II Cardiac Rehab:: Yes Sessions:: 36 sessions - 3 days/wk, 12 weeks Cardiac Rehabilitation Info Cardiac Rehabilitation Program Information: Cardiac Rehabilitation is important for patients like you who are recovering from a heart problem. Cardiac rehabilitation programs are recognized as integral to the continued care of the patient with coronary heart disease. The cardiac rehabilitation program is designed to optimize a patient's physical, psychological, and social functioning. Health child care supervisor work in cardiac rehabilitation programs and assist you with getting the treatments you need to get stronger and healthier - like exercise, healthy eating habits, and medications. Cardiac rehabilitation has been show to help people with heart problems live longer and have better life enjoyment than people who do not go to cardiac rehabilitation. Please contact the Cardiac Rehabilitation Program at [facility] at in two weeks if you have not heard from them.
--- NOTE | 2020-11-01 08:29 | CRPH1.INSTRU ---
General Education CAD and cardiac anatomy and function:: Patient communicates acknowledgment Explanation of diagnoses and procedures:: Patient communicates acknowledgment Sign/Symptoms of MT:: Patient communicates acknowledgment Antiplatelet therapy: Patient communicates acknowledgment Smoking Recommendations Include:: Previous smoker; encourage continued cessation Nicotine/Smoking Response Code:: Patient communicates acknowledgment Dyslipidemia Patient Dyslipidemia Risk Factors Are:: Total Cholesterol, Triglycerides, HDL, LDL Recommendations Include:: Lipid profile provided, Reviewed NCEP/ATP guidelines, Therapeutic Lifestyle Change dietary guidelines Dyslipidemia Response Code:: Patient communicates acknowledgment Overweight/Obesity Patient Overweight/Obesity Risk Factors Are:: Obesity - > or = 30 Recommendations Include:: Weight loss of 5-10%, Reduced calorie diet, Exercise 5-7 times/week Overweight/Obesity:: Patient communicates acknowledgment Hypertension Patient Hypertension Risk Factors Are:: No documented hx of HTN Diabetes Patient Diabetes Risk Factors Are:: Elevated blood sugars Recommendations Include:: Maintain fasting blood sugars 70-110 md/dL, Maintain HgbA1c of 6% or less, Monitor blood sugar as prescribed, Diabetic dietary guidelines, Decrease/maintain body weight Diabetes:: Patient communicates acknowledgment - hyperglycemia Sedentary Patient Sedentary Risk Factors Are:: Lack of regular exercise Recommendations Include:: Aerobic exercise 5-7 times/week for 20-30 minutes continuously, Benefits of regular exercise, Discussed home walking program, Monitored Outpatient Cardiac Rehab Sedentary Response Code:: Patient communicates acknowledgment Stress Recommendations Include:: Identification of stressors, and assessment of coping skills, Stress management techniques Stress Response Code:: Patient communicates acknowledgment
--- NOTE | 2020-11-01 09:30 | CASEMGMT ---
RN GLEN Face to Face with patient for initial transition planning/care coordination assessment. RN GLEN introduced self and role at [facility]. Patient lying in bed, alert and oriented. Patient willing to participate in assessment and is able to answer all questions appropriately. Care providers, pharmacy, and demographics verified. Patient wishes to discharge home, denies need for home health at this time. Patient states he has no further needs or concerns at this time. CM to follow for discharge planning needs that may arise. PCP: LADONNA Antunez Specialists: none [place]erred Pharmacy: [place] [facility] Prescription Benefit: [place] Living Will/HPOA: none LNOK: Living Arrangements: Patient lives with in a mobile home with 5 steps and railing to enter the home. Patient states he is independent at home. Transportation: self/ DME/HHC: Patient states he has railing in bathroom. Patient denies further DME or HHC. Disposition Plan: Patient to discharge home with family support and follow-up plans in place. Carmen ÁLVAREZ, RN, CM
--- NOTE | 2020-11-01 15:38 | PN.CARD_ITS ---
Subjectve: Patient is doing well. Denies any significant cardiac complaints at this time. Objective: Vital Signs Temp Pulse Resp BP Pulse Ox 98.4 F 67 16 136/92 H 95 11/01/20 14:56 11/01/20 15:12 11/01/20 14:56 11/01/20 14:56 11/01/20 15:00 Oxygen Flow Rate (L/min) 2 Oxygen Delivery Method Room Air Weight: 207 lb 10.807 oz Body Mass Index (BMI) 30.2 Intake and Output for Last 24 Hours 10/30/20 10/31/20 11/01/20 23:59 23:59 23:59 Intake Total 3197.72 / 3197.72 2245 / 2245 Output Total 600 / 600 550 / 550 Balance 2597.72 / 2597.72 1695 / 1695 General: Awake, Alert, Oriented x 3 HEENT: Atraumatic Oral: Moist Mucosa Neck: Supple Extremities: No edema Psych/Mental Status: Appropriate 11/01/20 03:05: WBC 7.8, RBC 4.23 L, Hgb 12.9 L, Hct 39.0 L, MCV 92.2, MCH 30.5, MCHC 33.1, Plt Count 285, MPV 9.4, Immature Gran % (Auto) 0.300, Neut % (Auto) 70.5 H, Lymph % (Auto) 19.5, [place] % (Auto) 8.0, Eos % (Auto) 1.3, Baso % (Auto) 0.4, Absolute Neuts (auto) 5.5, Nucleated RBC % 0 11/01/20 03:05: Sodium 141, Potassium 3.5, Chloride 111 H, Carbon Dioxide 20.0 L , Anion Gap 10, BUN 15, Creatinine 0.93, Est GFR (MDRD) Af Amer 103, Est GFR (MDRD) Non-Af 85, BUN/Creatinine Ratio 16.1, Glucose 126 H, Calcium 7.9 L, Total Bilirubin 0.60, Triglycerides 114, Cholesterol 167, LDL Cholesterol 105, VLDL Cholesterol 23, HDL Cholesterol 39 L 11/01/20 03:05: Hemoglobin A1c 6.9 H Rhythm: EKG: ECHO: Stress Test: Cardiac Cath: PCI: CT Surgery: Holter monitor: EPS: PPM: CXR: Chest CT Scan: Medical Necessity - Tobacco Use Smoking Status: Former smoker Tobacco Use: Cigarettes Assessment/Plan 1. STEMI: Treated with PCI to RCA. Continue present management. Echo revealed preserved EF. If patient does well overnight then he can be discharged home tomorrow.
[2020-11-01] MEDS: 0.9% Saline Lock 10 ML Syringe IV (17:59)
--- NOTE | 2020-11-01 19:03 | PN_ITS ---
Patient Problems: Active and Suspected Problems (Last Updated 11/01/20 @ 09:01 by Mary Lou Jaeger) STEMI (ST elevation myocardial infarction) (Acute) Leukocytosis (Acute) Hyperglycemia (Acute) Subjective: Patient was seen and examined today in ICU, he appeared stable for transfer to PCU, I talked briefly with cardiology about his care. Patient does not complain of any shortness of breath or chest pain. - Physical Exam Vitals/I&O's: Vital Signs Temp Pulse Resp BP Pulse Ox 98.4 F 67 16 136/92 H 95 11/01/20 14:56 11/01/20 15:12 11/01/20 14:56 11/01/20 14:56 11/01/20 15:00 Oxygen Flow Rate (L/min) 2 Oxygen Delivery Method Room Air Weight: 94.2 kg Body Mass Index (BMI) 30.2 Intake and Output for Last 24 Hours 10/30/20 10/31/20 11/01/20 23:59 23:59 23:59 Intake Total 3197.72 / 3197.72 3545 / 3545 Output Total 600 / 600 550 / 550 Balance 2597.72 / 2597.72 2995 / 2995 General: Alert, Oriented x3, Cooperative, No apparent distress, Well developed HEENT: Atraumatic, PERRLA, EOMI, Normocephalic Oral: Moist Mucosa Neck: Supple, No JVD, Trachea Midline, Thyroid Normal Size and Texture Lungs: Clear to auscultation, Normal air movement, No rhonchi, No wheeze, No rales Cardiovascular: Regular rate, Regular Rhythm, Normal S1, Normal S2, No murmurs, PMI Normal, No rub noted, No Gallop Abdomen: Bowel Sounds Present, Soft, Non Tender, Non-Distended Extremities: No clubbing, No cyanosis, Capillary Refill Less than 3 Seconds, Edema - There is generalized edema of the right forearm noted along with evidence of old ecchymosis Skin: No breakdown, - - Is evidence of ecchymosis over the patient's right forearm Neurological: Cranial nerves II-XII grossly intact, Neuro grossly intact, Sensory exam intact to light touch and pain, Coordination normal Psych/Mental Status: Normal Affect, Appropriate, Alert and oriented to time, place, person, mood and affect Laboratory Results 11/01/20 03:05: WBC 7.8, RBC 4.23 L, Hgb 12.9 L, Hct 39.0 L, MCV 92.2, MCH 30.5, MCHC 33.1, RDW Std Deviation 45.5 H, RDW Coeff of Rose 13.4, Plt Count 285, MPV 9.4, Immature Gran % (Auto) 0.300, Neut % (Auto) 70.5 H, Lymph % (Auto) 19.5, [place] % (Auto) 8.0, Eos % (Auto) 1.3, Baso % (Auto) 0.4, Absolute Neuts (auto) 5.5, Absolute Lymphs (auto) 1.52, Nucleated RBC % 0 11/01/20 03:05: Sodium 141, Potassium 3.5, Chloride 111 H, Carbon Dioxide 20.0 L , Anion Gap 10, BUN 15, Creatinine 0.93, Estim Creat Clear Calc 73.91, Est GFR (MDRD) Af Amer 103, Est GFR (MDRD) Non-Af 85, BUN/Creatinine Ratio 16.1, Glucose 126 H, Calcium 7.9 L, Total Bilirubin 0.60, AST 207 H, ALT 48, Alkaline Phosphatase 74, Total Protein 5.9 L, Albumin 3.2, Globulin 2.7, Albumin/Globulin Ratio 1.2, Triglycerides 114, Cholesterol 167, LDL Cholesterol 105, VLDL Cholesterol 23, HDL Cholesterol 39 L, TSH 2.71 11/01/20 03:05: Hemoglobin A1c 6.9 H Current Medications Acetaminophen (Acetaminophen 325 Mg Tablet) 650 mg PO Q6H PRN PRN PRN Reason: Pain 1-10 or Fever Last Admin: 10/31/20 23:17 Dose: 650 mg Documented by: Albuterol Sulfate (Albuterol Sulfate 8 Gm Inhaler (60 Puffs)) 1 puff INHALATION TID PRN PRN PRN Reason: SOB/wheezing Albuterol Sulfate (Albuterol 2.5 Mg/3 Ml Vial.Neb.) 2.5 mg INHALATION Q2H PRN PRN PRN Reason: sob/wheezing Last Admin: 11/01/20 07:25 Dose: 2.5 mg Documented by: Albuterol Sulfate (Albuterol 2.5 Mg/3 Ml Vial.Neb.) 2.5 mg INHALATION BID.RT [facility] Aspirin (Aspirin 81 Mg Tab.Chew) 81 mg PO DAILY@0800 [facility] Last Admin: 11/01/20 08:11 Dose: 81 mg Documented by: Atorvastatin Calcium (Atorvastatin Calcium 40 Mg Tablet) 40 mg PO QHS [facility] Last Admin: 10/31/20 20:40 Dose: 40 mg Documented by: Budesonide/Formoterol Fumarate (Budesonide/Formoterol 160/4.5 Inhaler) 1 INHALATION BID [facility] Last Admin: 11/01/20 08:11 Dose: 1 puff Documented by: Sodium Chloride () 1,000 mls @ 150 mls/hr IV .Q6H40M [facility] Last Admin: 11/01/20 17:59 Dose: 150 mls/hr Documented by: Metoprolol Tartrate (Metoprolol Tartrate 25 Mg Tablet) 25 mg PO BID [facility] Sodium Chloride (0.9% Saline Lock 10 Ml Syringe) 10 - 40 ml IV UD PRN PRN Reason: SALINE FLUSH Last Admin: 11/01/20 17:59 Dose: 10 ml Documented by: Sodium Chloride (Sodium Chloride 0.65% 1 [place].Btl) 1 spray NASAL TID PRN PRN PRN Reason: NASAL DRYNESS Last Admin: 10/31/20 20:38 Dose: 1 spray Documented by: Sodium Chloride (Sodium Chloride 0.65% 1 [place].Btl) 2 spray NASAL TID PRN PRN PRN Reason: NASAL DRYNESS Ticagrelor (Ticagrelor 90 Mg Tablet) 90 mg PO BID [facility] Last Admin: 11/01/20 08:12 Dose: 90 mg Documented by: Medical Necessity - Tobacco Use Smoking Status: Former smoker Tobacco Use: Cigarettes Assessment/Plan All Active Problems (Last Updated 11/01/20 @ 09:01 by Mary Lou Jaeger) STEMI (ST elevation myocardial infarction) (Acute) Leukocytosis (Acute) Hyperglycemia (Acute) #1 STEMI-secondary to distal RCA occlusion, postop day #1 drug-eluting stent to right coronary artery, patient appears stable for transfer to PCU #2 chronic obstructive pulmonary disease #3 right forearm hematoma-this does not appear serious at this time #4 nonobstructive coronary artery disease left main, left anterior descending, ostial left circumflex-patient remains on a statin and Brilinta as well as aspirin. Inpatient E&M: [id number] [facility] L2
[2020-11-01] MEDS: Metoprolol Tartrate 25 MG Tablet PO (20:59)
[2020-11-01] MEDS: Atorvastatin Calcium 40 MG Tablet PO (20:59)
[2020-11-02] VITALS (7 sets, daily range): BP systolic 134–155; BP diastolic 80–101; PULSE 68–88; RESP 16–18; TEMP 36.4–36.8; O2SAT 95–96
[2020-11-02] MEDS: 0.9% Normal Saline 1,000 ML 150 ML IV ×2 (00:19→06:56)
[2020-11-02] MEDS: Albuterol 2.5 MG/3 ML VIAL.NEB. INHALATION (07:13)
[2020-11-02] MEDS: Aspirin 81 MG TAB.CHEW PO (08:47)
[2020-11-02] MEDS: Metoprolol Tartrate 25 MG Tablet PO (08:47)
[2020-11-02] MEDS: guaiFENesin 1,200 MG Tablet 1200 MG PO (08:47)
[2020-11-02] MEDS: TICAGRELOR 90 MG TABLET PO (08:48)
--- NOTE | 2020-11-02 09:28 | DCINST_ITS ---
- Discharge Diagnoses Current Active Problems: Current Active and Chronic Problems (Last Updated 11/01/20 @ 09:01 by Mary Lou Jaeger) STEMI (ST elevation myocardial infarction) (Acute) Leukocytosis (Acute) Hyperglycemia (Acute) You will use the following diet at home:: No restrictions Your food should be the consistency of: Regular Your liquids should be the consistency of: Regular/Thin Discharge Activity: Return to Normal Activity, - - no strenous activity until seen by cardiology in followup Weight Bearing Status: Full weight bearing Additional Instructions: Do not take any additional aspirin, ibuprofen, or Aleve while on Brilinta and aspirin. You may take Tylenol for pain Allergies/Adverse Reactions: Allergies No Known Allergies Allergy (Verified 04/17/16 11:27) Medications to take at Discharge Albuterol Sulfate [Ventolin Hfa] 1 - 2 puff INHALATION TID PRN 06/14/18 Multivit-Mins/Iron/Folic/Lycop [Centrum Men's Tablet] 1 tab PO DAILY 06/14/18 Fluticasone/Salmeterol [Advair 250-50 Diskus] 1 each IH BID 10/31/20 Vitamin C 10/31/20 Aspirin [Aspirin, Baby] 81 mg PO DAILY@0800 tab.chew 11/02/20 Atorvastatin Calcium [Lipitor] 40 mg PO QHS #30 tablet 11/02/20 Lisinopril 5 mg PO DAILY #30 tablet 11/02/20 Metoprolol Tartrate [Lopressor (beta blade)] 25 mg PO BID #60 tablet 11/02/20 Ticagrelor [Brilinta] 90 mg PO BID #60 tablet 11/02/20 The following prescriptions were given: Ticagrelor [Brilinta] 90 mg PO BID #60 tablet Transmission Status: Pending to [facility] Atorvastatin Calcium [Lipitor] 40 mg PO QHS #30 tablet Transmission Status: Pending to [facility] Lisinopril 5 mg PO DAILY #30 tablet Transmission Status: Pending to [facility] Metoprolol Tartrate [Lopressor (beta blade)] 25 mg PO BID #60 tablet Transmission Status: Pending to [facility] Primary Care Physician: [facility] [Primary Care Provider] - Test Results: Test results from this visit will be discussed in further detail at your follow- up appointment, if applicable. Please Follow Up With: Tiera Metcalf MD When: in 3 weeeks-call for appointment [phone]
--- NOTE | 2020-11-02 09:56 | CASEMGMT ---
Pt to be sent home on Brilinta at discharge. Per pt, [facility]. Pt provided with Brilinta one month free coupon card with instruction. Pt encouraged to notify [facility] of new med so that they will fill it for him next month, voices understanding. Pt voices no further questions/concerns/needs. Frank GAMEZ CM
--- NOTE | 2020-11-02 10:14 | PHA.DC.MC ---
Pharmacy Service has performed discharge medication reconciliation and counseling for this patient. 1. ASPIRIN 81MG PO DAILYCM 2. ATORVASTATIN 40MG PO QHS 3. LISINOPRIL 5MG PO DAILY 4. METOPROLOL TARTRATE 25MG PO BID 5. TICAGRELOR 90 MG PO BID The patient's discharge medication list was reviewed for discrepancies and discrepancies were resolved. Home Medications Albuterol Sulfate [Ventolin Hfa] 1 - 2 puff INHALATION TID PRN 06/14/18 Multivit-Mins/Iron/Folic/Lycop [Centrum Men's Tablet] 1 tab PO DAILY 06/14/18 Fluticasone/Salmeterol [Advair 250-50 Diskus] 1 each IH BID 10/31/20 Vitamin C 10/31/20 Aspirin [Aspirin, Baby] 81 mg PO DAILY@0800 tab.chew 11/02/20 Atorvastatin Calcium [Lipitor] 40 mg PO QHS #30 tablet 11/02/20 Lisinopril 5 mg PO DAILY #30 tablet 11/02/20 Metoprolol Tartrate [Lopressor (beta blade)] 25 mg PO BID #60 tablet 11/02/20 Ticagrelor [Brilinta] 90 mg PO BID #60 tablet 11/02/20 The patient was counseled on the following discharge medications and changes in medications for homegoing were reviewed. The Reason for Use, instructions for use, and potential side effects were reviewed for all new medications. The patient's questions regarding all of their medications were answered. The patient was able to verbally demonstrate an understanding of their discharge medications.
--- NOTE | 2020-11-04 10:12 | PCM.DC.SUM ---
Discharge Date and Diagnosis - Problem List Patient Problems: Active and Suspected Problems (Last Updated 11/01/20 @ 09:01 by Mary Lou Jaeger) STEMI (ST elevation myocardial infarction) (Acute) Leukocytosis (Acute) Hyperglycemia (Acute) Date of Admission: 10/31/20 Date of Discharge: 11/02/20 - Primary Discharge Diagnosis Acute Problems: Active Problems (Last Updated 11/01/20 @ 09:01 by Mary Lou Jaeger) #1 [id number] to distal RCA occlusion #2 chronic obstructive pulmonary disease #3 right forearm hematoma-this does not appear serious at this time #4 nonobstructive coronary artery disease left main, left anterior descending, ostial left circumflex - Secondary Discharge Diagnosis Chronic Problems: Chronic Problems (Last Updated 11/01/20 @ 09:01 by Mary Lou Jaeger) Presence of stent in coronary artery (Chronic ~10/31/20) Successful PCI of the culprit, occluded distal RCA with predilatation and placement of drug-eluting stent 3 x 20 mm Synergy MR, overlap by 3 x 32 mm and achievement of 0% stenosis post PCI and MAO-3 flow. Initial MAO 0 with occluded distal RCA; IFR measurement of mid RCA with IFR [0.88?0.87] #3 moderate sedation per cardia cath 10/31/20 Atherosclerotic heart disease of [place] coronary artery without angina pectoris (Chronic) Hospital Course and Treatment Operations: None Procedures: 2-D Echocardiogram Summary of Care Provided: The patient is a 70 year old M patient was seen in the emergency room with a chief complaint of chest pain, work-up in the emergency room included an EKG which shows sinus bradycardia, there were T wave inversions in the inferior wall leads, initially it was felt the patient had a STEMI and the patient was taken to the [facility] by cardiology, on further review of the patient's EKG, it was noted that the patient did not have a STEMI but a non-STEMI., A right RCA occlusion was noted to be present on catheterization and a drug-eluting stent was placed. Patient did well during his hospitalization. On 11/02/2020, patient was seen and examined: On examination he appeared in good health and spirits. Vital signs as documented. Skin warm and dry and without overt rashes. Neck without JVD, neck was supple, trachea midline, thyroid was normal. Lungs clear bilaterally, normal air movement was noted. Heart exam notable for regular rhythm, normal sounds and absence of murmurs, rubs or gallops. Abdomen unremarkable and without evidence of organomegaly, masses, or abdominal aortic enlargement. Bowel sounds are present, abdomen is not distended. Extremities nonedematous, no cyanosis was noted, no clubbing was noted. Neuro: Cranial nerves II through XII are grossly intact, no focal motor deficits were noted, sensation to light touch and pinprick intact, motor exam 5/5 throughout. Psych: Patient is alert and oriented x3, he does not appear anxious or depressed, he does not appear agitated. Patient was felt to be stable for discharge on 11/02/2020, again it was noted that the patient actually had a non-STEMI rather than a STEMI. Patient Problems: Active and Suspected Problems (Last Updated 11/01/20 @ 09:01 by Mary Lou Jaeger) STEMI (ST elevation myocardial infarction) (Acute) Leukocytosis (Acute) Hyperglycemia (Acute) - Physical Exam Vitals/I&O's: Vital Signs Temp Pulse Resp BP Pulse Ox 97.6 F L 74 18 146/80 H 96 11/02/20 08:41 11/02/20 08:47 11/02/20 08:41 11/02/20 08:41 11/02/20 08:41 Oxygen Flow Rate (L/min) 2 Oxygen Delivery Method Room Air Weight: 94.3 kg Body Mass Index (BMI) 30.2 Intake and Output for Last 24 Hours 11/02/20 11/03/20 11/04/20 23:59 23:59 23:59 Intake Total 2702.5 / 2702.5 Balance 2702.5 / 2702.5 Discharge Activity: Return to Normal Activity, - - no strenous activity until seen by cardiology in followup Weight Bearing Status: Full weight bearing Home Medications: Medications to take at Discharge Albuterol Sulfate [Ventolin Hfa] 1 - 2 puff INHALATION TID PRN 06/14/18 Multivit-Mins/Iron/Folic/Lycop [Centrum Men's Tablet] 1 tab PO DAILY 06/14/18 Fluticasone/Salmeterol [Advair 250-50 Diskus] 1 each IH BID 10/31/20 Vitamin C 10/31/20 Aspirin [Aspirin, Baby] 81 mg PO DAILY@0800 tab.chew 11/02/20 Atorvastatin Calcium [Lipitor] 40 mg PO QHS #30 tablet 11/02/20 Lisinopril 5 mg PO DAILY #30 tablet 11/02/20 Metoprolol Tartrate [Lopressor (beta silvia)] 25 mg PO BID #60 tablet 11/02/20 Ticagrelor [Brilinta] 90 mg PO BID #60 tablet 11/02/20 Following Prescriptions Were Given to Patient: Ticagrelor [Brilinta] 90 mg PO BID #60 tablet Transmission Status: Received by [facility] Atorvastatin Calcium [Lipitor] 40 mg PO QHS #30 tablet Transmission Status: Received by [facility] Lisinopril 5 mg PO DAILY #30 tablet Transmission Status: Received by [facility] Metoprolol Tartrate [Lopressor (beta silvia)] 25 mg PO BID #60 tablet Transmission Status: Received by [facility] Primary Care Physician: [facility] [Primary Care Provider] - Please Follow Up With: Tiera Metcalf MD When: in 3 weeeks-call for appointment [phone] Disposition: Home Minutes spent on discharge:: 31 Patient Condition:: Stable Medical Necessity - Tobacco Use Smoking Status: Former smoker Tobacco Use: Cigarettes Meaningful Use Info Meaningful Use Diagnoses (Choose all that apply): AMI - AMI/Post PCI/Angioplasty Aspirin given w/in 24hrs of arrival?: Yes ASA at discharge?: Yes Antiplatelet Therapy at Discharge:: Yes Statins at discharge?: Yes Sandor/ARB at discharge?: Yes Beta Silvia at discharge?: Yes Done w/ Acute NC measure.: Yes Documented LVEF (%): 60 Inpatient E&M: [id number] Disch Hosp
== END 2020-11-02 10:51 | disposition home or self-care (01) | DRG 247 ==
LOC: ED 06:26 → ICU 06:57 → PCU 11-01 14:46
PROVIDERS: Internal Medicine; Admitting Provider Internal Medicine Interventional Cardiology; Emergency Provider Emergency Medicine; Referring Provider Internal Medicine Interventional Cardiology; Visit Provider Internal Medicine
DX: I21.4 Non-ST elevation (NSTEMI) myocardial infarction (principal); J44.9 Chronic obstructive pulmonary disease, unspecified; Z79.51 Long term (current) use of inhaled steroids; I25.10 Atherosclerotic heart disease of native coronary artery without angina pectoris; S50.11XA Contusion of right forearm, initial encounter; Z87.891 Personal history of nicotine dependence; Y92.234 Operating room of hospital as the place of occurrence of the external cause; Y93.89 Activity, other specified; Y99.8 Other external cause status
CPT/HCPCS: 71045; 80048; 80053; 80061; 83036; 83735; 84132; 84443; 84484; 85025; 85610; 85730; 92928; 93005; 93306; 93458; 93571; 94640; 99152; 99153; 99283; J7030; J7040; Q9957; Q9967; A4216; C1725; C1769; C1874; C1887; C1894; C8929; C9600; J1327

== ENCOUNTER 2021-07-17 16:19 | Inpatient (IN) | payer OTHER, SELFPAY ==
[2021-07-17] VITALS (39 sets, daily range): BP systolic 32–138; BP diastolic 14–104; PULSE 53–105; RESP 16–35; TEMP 35.7–36.6; O2SAT 83–100; BMI 29.2
--- NOTE | 2021-07-17 16:51 | ED.RN ---
Per Dr. Peters increase levo to 30mcg
[2021-07-17 16:54] LABS: Absolute Lymphocyte Count 6.11 X10^3/uL (0.83-4.51); Absolute Neutrophil Count 5.8 X10^3/uL (2.0-7.7); Basophil# 0.01 X10^3/uL; Basophil% 0.1 % (0-1); Eosinophil# 0.04 X10^3/uL; Eosinophils% 0.3 % (0-5); Hematocrit 15.4 % (40-54); Lymphocyte # 6.11 X10^3/ul (0.83-4.51); Lymphocyte % 45.7 % (19-41); Mean Corp Hgb Conc 26.6 g/dL (32-36); Mean Corpuscular Hgb 22.9 pg (27.0-32.0); Mean Platelet Vol. 9.9 fl (6.2-12.0); Monocyte# 0.79 X10^3/uL; Monocyte% 5.9 % (0-10); NRBC Flagged by Analyzer 9.9 % (0-5); Neutrophil # 5.83 X10^3/uL (2.7-7.7); Neutrophil % 43.7 % (47-70); POSITIVE COUNT YES; POSITIVE DIFFERENTIAL YES; POSITIVE MORPHOLOGY YES; Platelet Count 320 K/mm3 (150-450); RBC Distribution Width CV 19.8 % (11.6-14.6); Red Blood Count 1.79 M/mm3 (4.6-6.2); White Blood Count 13.4 K/mm3 (4.4-11.0)
[2021-07-17] MEDS: 0.9% Normal Saline 1,000 ML 1000 ML IV (17:00)
--- NOTE | 2021-07-17 17:00 | RAD_ITS ---
STUDY: X-RAY CHEST REASON FOR EXAM: Male, 71 years old. Endotracheal tube placement. TECHNIQUE: 2 frontal images of the chest were obtained. COMPARISON: 10/31/2020 FINDINGS: There is an endotracheal tube in place terminating 5.1 cm above the archana. There is an enteric tube in place terminating within the expected region of the gastric fundus. There is no new focal consolidation. Normal size heart. Normal mediastinum and josselyn. Normal visualized pulmonary arteries. Normal visualized aortic arch and descending thoracic aorta. Normal visualized thoracic spine. There is a stable deformity of the right mid clavicle consistent with an old fracture. There is no demonstrated abnormality of the visualized soft tissue structures of the upper abdomen. RAD/Chest 1 View (Portable) IMPRESSION: Endotracheal and enteric tubes in satisfactory positions. Electronically Signed: Eli Juarez MD at 17:45 EST Tel , Service support ,
[2021-07-17 17:01] LABS: Hemoglobin 4.1 g/dL (13.0-16.5)
[2021-07-17 17:02] LABS: Differential Indicated SCAN CRITERIA MET
[2021-07-17 17:04] LABS: Bacteria 0 SEEN /hpf (None Seen); Mucous, Urine 0 SEEN /hpf (<or=2+); Squamous Epithelial Cells - UA 0 SEEN /hpf (0-5)
--- NOTE | 2021-07-17 17:17 | EDS_ITS ---
HPI History of Present Illness Chief Complaint: CPR Informant: spouse/S.O. and EMS Narrative Narrative: Initial report from EMS with the patient was short of breath. On the way and he arrested. He was in [place]. They were not able to get him back. We note that he was extremely pale. We ordered trauma blood with rapid infuser. After we are working the patient we actually get a pulse back, I talked to the who arrived. This patient has been having black stools and diarrhea for a week. He has been getting weaker. He is passed out at home. He has been refusing transport to the hospital because he felt fine. He does have known heart disease. was not sure what medicine he was on but knew he was on a blood thinner. He is on Brilinta. I have no reported GI illness. Because the patient is in arrest and extremis, we cannot get further details from the patient in terms of review of systems or history. 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 COPD (chronic obstructive pulmonary disease) COPD with acute exacerbation Hyperglycemia Leukocytosis Presence of stent in coronary artery (~10/31/20) STEMI (ST elevation myocardial infarction) Home Medications Centrum Men 1 tab PO DAILY 06/14/18 [History Last Taken 10/30/20] albuterol sulfate [Ventolin HFA] 1 - 2 puff INHALATION TID PRN 06/14/18 [History Last Taken 10/30/20] Vitamin C 10/31/20 [History Last Taken Unknown] fluticasone propion-salmeterol 1 each IH BID 10/31/20 [History Last Taken 10/30/20] aspirin 81 mg PO DAILY@0800 tab.chew 11/02/20 [Rx Last Taken Unknown] atorvastatin 40 mg PO QHS #30 tablet 11/02/20 [Rx Last Taken Unknown] lisinopril 5 mg PO DAILY #30 tablet 11/02/20 [Rx Last Taken Unknown] metoprolol tartrate 25 mg PO BID #60 tablet 11/02/20 [Rx Last Taken Unknown] ticagrelor 90 mg PO BID #60 tablet 11/02/20 [Rx Last Taken Unknown] Allergy/AdvReac Type Severity Reaction Status Date / Time No Known Allergies Allergy Verified 07/17/21 16:29 Family History Other Diabetes Heart disease Surgical History Presence of coronary angioplasty implant and graft (~10/31/20) Social History Smoking Status: Former smoker ROS ROS ED ROS Narrative History is unobtainable other than what is listed below. Patient is in full arrest and intubated. Gastrointestinal Gastrointestinal: Reports diarrhea and melena EXAM Physical Exam Const Vital Signs: 07/17/21 16:22 07/17/21 16:27 07/17/21 16:29 Temperature 97 F L Temperature Source Temporal Pulse Rate 83 100 Pulse Rate [10] Pulse Rate [5] 81 Pulse Rate [9] 60 Respiratory Rate 16 23 H Respiratory Rate [9] 18 Respiratory Effort Respiratory Depth Respiratory Pattern Normal Blood Pressure 88/48 L Blood Pressure [10] Blood Pressure [9] 40/28 L Blood Pressure Mean 61 Blood Pressure Source Blood Pressure Position Blood Pressure Location Pulse Ox 93 Oxygen Delivery Method Ambu-Bag Fraction of Inspired Oxygen (FIO2) 100 07/17/21 16:34 07/17/21 16:46 07/17/21 16:47 Temperature Temperature Source Pulse Rate 105 H 53 L Pulse Rate [10] Pulse Rate [5] Pulse Rate [9] Respiratory Rate 20 H 18 Respiratory Rate [9] Respiratory Effort Respiratory Depth Respiratory Pattern Blood Pressure 65/43 L 32/14 L 32/14 L Blood Pressure [10] Blood Pressure [9] Blood Pressure Mean 50 20 20 Blood Pressure Source Blood Pressure Position Blood Pressure Location Pulse Ox Oxygen Delivery Method Fraction of Inspired Oxygen (FIO2) 07/17/21 16:50 07/17/21 16:56 07/17/21 16:58 Temperature Temperature Source Pulse Rate 68 Pulse Rate [10] Pulse Rate [5] Pulse Rate [9] Respiratory Rate 20 H Respiratory Rate [9] Respiratory Effort Normal Non-Labored Respiratory Depth Normal Respiratory Pattern Normal Blood Pressure 71/52 L 67/53 L Blood Pressure [10] Blood Pressure [9] Blood Pressure Mean 58 57 Blood Pressure Source Blood Pressure Position Blood Pressure Location Pulse Ox 84 Oxygen Delivery Method Mechanical Ventilator Mechanical Ventilator Fraction of Inspired Oxygen (FIO2) 07/17/21 17:05 07/17/21 17:07 07/17/21 17:09 Temperature Temperature Source Pulse Rate 88 70 75 Pulse Rate [10] Pulse Rate [5] Pulse Rate [9] Respiratory Rate 20 H 19 H 20 H Respiratory Rate [9] Respiratory Effort Respiratory Depth Respiratory Pattern Blood Pressure 69/49 L 104/36 L 104/36 L Blood Pressure [10] Blood Pressure [9] Blood Pressure Mean 55 58 58 Blood Pressure Source Blood Pressure Position Blood Pressure Location Pulse Ox 85 83 85 Oxygen Delivery Method Mechanical Ventilator Mechanical Ventilator Mechanical Ventilator Fraction of Inspired Oxygen (FIO2) 07/17/21 17:15 07/17/21 17:19 07/17/21 17:26 Temperature Temperature Source Pulse Rate Pulse Rate [10] 53 L Pulse Rate [5] Pulse Rate [9] Respiratory Rate Respiratory Rate [9] Respiratory Effort Respiratory Depth Respiratory Pattern Blood Pressure 106/45 L 121/75 H Blood Pressure [10] 32/14 L Blood Pressure [9] Blood Pressure Mean 65 90 Blood Pressure Source Blood Pressure Position Blood Pressure Location Pulse Ox Oxygen Delivery Method Fraction of Inspired Oxygen (FIO2) 07/17/21 17:28 07/17/21 17:30 07/17/21 17:36 Temperature Temperature Source Pulse Rate Pulse Rate [10] Pulse Rate [5] Pulse Rate [9] Respiratory Rate Respiratory Rate [9] Respiratory Effort Respiratory Depth Respiratory Pattern Blood Pressure 121/75 H 120/81 H 132/90 H Blood Pressure [10] Blood Pressure [9] Blood Pressure Mean 90 94 104 Blood Pressure Source Blood Pressure Position Blood Pressure Location Pulse Ox Oxygen Delivery Method Fraction of Inspired Oxygen (FIO2) 07/17/21 17:41 07/17/21 17:46 07/17/21 17:51 Temperature Temperature Source Pulse Rate Pulse Rate [10] Pulse Rate [5] Pulse Rate [9] Respiratory Rate Respiratory Rate [9] Respiratory Effort Respiratory Depth Respiratory Pattern Blood Pressure 128/104 H 115/86 H Blood Pressure [10] Blood Pressure [9] Blood Pressure Mean 112 95 Blood Pressure Source Blood Pressure Position Blood Pressure Location Pulse Ox Oxygen Delivery Method Fraction of Inspired Oxygen (FIO2) 90 07/17/21 17:56 07/17/21 18:00 07/17/21 18:18 Temperature 96.3 F L Temperature Source Temporal Pulse Rate 77 74 Pulse Rate [10] Pulse Rate [5] Pulse Rate [9] Respiratory Rate 20 H 19 H Respiratory Rate [9] Respiratory Effort Respiratory Depth Respiratory Pattern Blood Pressure 125/99 H 119/75 101/72 Blood Pressure [10] Blood Pressure [9] Blood Pressure Mean 107 89 81 Blood Pressure Source Monitor Blood Pressure Position Semi-Fowlers Blood Pressure Location Right Arm Pulse Ox 100 100 Oxygen Delivery Method Mechanical Ventilator Mechanical Ventilator Fraction of Inspired Oxygen (FIO2) 07/17/21 18:22 07/17/21 18:33 07/17/21 18:48 Temperature 96.3 F L Temperature Source Temporal Pulse Rate 77 78 Pulse Rate [10] Pulse Rate [5] Pulse Rate [9] Respiratory Rate 19 H 19 H Respiratory Rate [9] Respiratory Effort Respiratory Depth Respiratory Pattern Irregular Blood Pressure 104/82 H 124/91 H Blood Pressure [10] Blood Pressure [9] Blood Pressure Mean 89 102 Blood Pressure Source Monitor Blood Pressure Position Semi-Fowlers Blood Pressure Location Right Arm Pulse Ox 100 97 Oxygen Delivery Method Mechanical Ventilator Fraction of Inspired Oxygen (FIO2) 80 07/17/21 19:12 07/17/21 19:20 Temperature Temperature Source Pulse Rate Pulse Rate [10] Pulse Rate [5] Pulse Rate [9] Respiratory Rate Respiratory Rate [9] Respiratory Effort Respiratory Depth Respiratory Pattern Blood Pressure 73/52 L 119/65 Blood Pressure [10] Blood Pressure [9] Blood Pressure Mean 59 83 Blood Pressure Source Blood Pressure Position Blood Pressure Location Pulse Ox Oxygen Delivery Method Fraction of Inspired Oxygen (FIO2) Patient arrives in full arrest. He is extremely pale. There is no color difference between his sclera and the conjunctiva of his eyes General Appearance ED: pallor HEENT atraumatic Eyes General Eye ED: Yes pale conjunctiva Neck supple Resp Resp Narrative: No spontaneous breathing. Good breath sounds with ambo. After intubation he has good breath sounds bilaterally with easy Change and no sounds over the gastric area. Cardio Cardio Narrative: Asystole. GI non-tender GI Narrative: Abdomen is soft nondistended nontender. I looked at the rectum but did not do a rectal exam. I see no blood there at this moment. Palpation: soft Extremity Extremity Narrative: Extremely pale. No deformity or trauma. Neuro Neuro Narrative: Nonresponsive. GCS 3. Psych Psych Narrative: Unable to assess Skin General Skin Exam: pallor MDM MDM MDM Narrative Medical decision making narrative: We had multiple rechecks of the patient over hours. Extensive time spent at the bedside initially. Discussions with the . She states he would not want to be on machines but since he is already on them they would not remove them to see if he recovers. I explained that I am concerned that he is not needing sedation yet on the ventilator. However, later in his stay he does get sedation. I explained that this patient is critically ill and has a low chance of survival. His blood work shows markedly elevated lactate. His hemoglobin was 4.1 after 3 units were infused. I stayed in the room almost the entire time. This patient arrested and got CPR multiple times. He got multiple meds to try to get him back. Because of his significant anemia we worked hard to not call this code until we can get some blood transfused. Spent well over an hour in the room initially without leaving. I have had multiple revisits. Because of his very unstable condition and bleeding, he was not put on hypothermia protocol for because of concern for worsening bleeding. Procedure: Intubation: Due to extremis, multiple arrest, need to maintain airway, intubation was done on first attempt using glide scope and a 7/2 ET tube at 26 at the lips. With this depth he actually had good breath sounds bilaterally and none over the abdomen. Good easy Change. We had trouble getting saturations but he was so anemic we could not read those. ABG was done that did show good oxygenation. Procedure: Central line: Due to multiple IV drips, meds, pressors and critical illness central line access was needed. We did ultrasound of the right IJ that showed good positioning. However when we went to do the central line patient was rather mobile. He could feel the needle stick. He had been anesthetized also at this time. Because he was moving a fair amount, we did give 80 of succinylcholine to keep him still. We initially got the good flashback of blood but could not passes what the wire. I then went up higher. We were able to pass without difficulty. Good flush and draw on all 3 ports. Post placement chest x-ray showed good position. Patient overall tolerated procedure well. There was some mild hematoma in the neck. I discussed the case with gastroenterology and hospitalist. Lab Data Labs: Laboratory Results - last 24 hr 07/17/21 07/17/21 07/17/21 00:40 16:35 16:45 WBC RBC Hgb Hct MCV MCH MCHC RDW Std Deviation RDW Coeff of Rose Plt Count MPV Immature Gran % (Auto) Neut % (Auto) Lymph % (Auto) [place] % (Auto) Eos % (Auto) Baso % (Auto) Absolute Neuts (auto) Absolute Lymphs (auto) Nucleated RBC % Differential Comment Diff Path Review Reactive Lymphocytes Hypochromasia Poikilocytosis Anisocytosis Microcytosis Macrocytosis Acanthocytes (Spur) PT 20.6 H INR 1.9 APTT 41.9 H Sodium 137 Potassium 2.9 L Chloride 108 H Carbon Dioxide 13.0 L Anion Gap 16 H BUN 50 H Creatinine 2.07 H Estim Creat Clear Calc 31.67 Est GFR (MDRD) Af Amer 41 L Est GFR (MDRD) Non-Af 34 L BUN/Creatinine Ratio 24.2 H Glucose 199 H Lactic Acid Calcium 6.9 L Total Bilirubin AST ALT Alkaline Phosphatase Troponin I High Sens Total Protein Albumin Globulin Albumin/Globulin Ratio Urine Color Urine Clarity Urine pH Ur Specific [place] Urine Protein Urine Glucose (UA) Urine Ketones Urine Occult Blood Urine Nitrite Urine Bilirubin Urine Urobilinogen Ur Leukocyte Esterase Urine RBC Urine WBC Ur Squamous Epith Cells Urine Bacteria Urine Mucus Blood Type Antibody Screen Crossmatch See Detail 07/17/21 07/17/21 07/17/21 16:45 16:45 16:45 WBC 13.4 H RBC 1.79 L Hgb 4.1 L* Hct 15.4 L MCV 86.0 MCH 22.9 L MCHC 26.6 L RDW Std Deviation 60.0 H RDW Coeff of Rose 19.8 H Plt Count 320 MPV 9.9 Immature Gran % (Auto) 4.300 H Neut % (Auto) 43.7 L Lymph % (Auto) 45.7 H [place] % (Auto) 5.9 Eos % (Auto) 0.3 Baso % (Auto) 0.1 Absolute Neuts (auto) 5.8 Absolute Lymphs (auto) 6.11 H Nucleated RBC % 9.9 H Differential Comment SCANNED Diff Path Review May foll Reactive Lymphocytes 1+ Hypochromasia 2+ Poikilocytosis 1+ Anisocytosis 3+ Microcytosis 2+ Macrocytosis 1+ Acanthocytes (Spur) 1+ PT INR APTT Sodium 135 L Potassium 3.5 Chloride 102 Carbon Dioxide 7.0 L* Anion Gap 26 H BUN 42 H Creatinine 1.72 H Estim Creat Clear Calc 39.39 Est GFR (MDRD) Af Amer 51 L Est GFR (MDRD) Non-Af 42 L BUN/Creatinine Ratio 24.4 H Glucose 386 H Lactic Acid 18.6 H* Calcium 7.6 L Total Bilirubin 0.30 AST 49 H ALT 61 Alkaline Phosphatase 112 Troponin I High Sens 88 H Total Protein 4.6 L Albumin 2.1 L Globulin 2.5 Albumin/Globulin Ratio 0.8 L Urine Color Urine Clarity Urine pH Ur Specific [place] Urine Protein Urine Glucose (UA) Urine Ketones Urine Occult Blood Urine Nitrite Urine Bilirubin Urine Urobilinogen Ur Leukocyte Esterase Urine RBC Urine WBC Ur Squamous Epith Cells Urine Bacteria Urine Mucus Blood Type Antibody Screen Crossmatch 07/17/21 07/17/21 07/17/21 16:55 16:55 16:55 WBC RBC Hgb Hct MCV MCH MCHC RDW Std Deviation RDW Coeff of Rose Plt Count MPV Immature Gran % (Auto) Neut % (Auto) Lymph % (Auto) [place] % (Auto) Eos % (Auto) Baso % (Auto) Absolute Neuts (auto) Absolute Lymphs (auto) Nucleated RBC % Differential Comment Diff Path Review Reactive Lymphocytes Hypochromasia Poikilocytosis Anisocytosis Microcytosis Macrocytosis Acanthocytes (Spur) PT INR APTT Sodium Potassium Chloride Carbon Dioxide Anion Gap BUN Creatinine Estim Creat Clear Calc Est GFR (MDRD) Af Amer Est GFR (MDRD) Non-Af BUN/Creatinine Ratio Glucose Lactic Acid Calcium Total Bilirubin AST ALT Alkaline Phosphatase Troponin I High Sens Total Protein Albumin Globulin Albumin/Globulin Ratio Urine Color Urine Clarity Urine pH Ur Specific [place] Urine Protein Urine Glucose (UA) Urine Ketones Urine Occult Blood Urine Nitrite Urine Bilirubin Urine Urobilinogen Ur Leukocyte Esterase Urine RBC Urine WBC Ur Squamous Epith Cells Urine Bacteria Urine Mucus Blood Type O POSITIVE O POSITIVE Antibody Screen NEGATIVE NEGATIVE Crossmatch See Detail See Detail 07/17/21 07/17/21 16:57 16:59 WBC RBC Hgb Hct MCV MCH MCHC RDW Std Deviation RDW Coeff of Rose Plt Count MPV Immature Gran % (Auto) Neut % (Auto) Lymph % (Auto) [place] % (Auto) Eos % (Auto) Baso % (Auto) Absolute Neuts (auto) Absolute Lymphs (auto) Nucleated RBC % Differential Comment Diff Path Review Reactive Lymphocytes Hypochromasia Poikilocytosis Anisocytosis Microcytosis Macrocytosis Acanthocytes (Spur) PT INR APTT Sodium Potassium Chloride Carbon Dioxide Anion Gap BUN Creatinine Estim Creat Clear Calc Est GFR (MDRD) Af Amer Est GFR (MDRD) Non-Af BUN/Creatinine Ratio Glucose Lactic Acid Calcium Total Bilirubin AST ALT Alkaline Phosphatase Troponin I High Sens Total Protein Albumin Globulin Albumin/Globulin Ratio Urine Color Yellow Urine Clarity Clear Urine pH 6.0 Ur Specific [place] 1.020 Urine Protein 15 H Urine Glucose (UA) Normal Urine Ketones 5 H Urine Occult Blood 150 H Urine Nitrite Negative Urine Bilirubin Negative Urine Urobilinogen Normal Ur Leukocyte Esterase 100 H Urine RBC 0-5 SEEN Urine WBC 0-5 SEEN Ur Squamous Epith Cells 0 SEEN Urine Bacteria 0 SEEN Urine Mucus 0 SEEN Blood Type O POSITIVE Antibody Screen NEGATIVE Crossmatch See Detail ABG Data ABG results: ABG 07/17/21 17:21 Specimen Type ART Sample Site L Radial pH 7.40 Bicarbonate Actual 16.3 L Total CO2 17 Base Excess -9 L O2 Saturation 99 O2 % 100 ABG pCO2 26.5 L ABG pO2 142 H Antoni Test Positive Respiration Rate 16 O2 Delivery Device Adult Vent Vent Mode AC Tidal Volume 400 POC PEEP 10 Radiography Diagnostic Testing: Clinical Impression(s) from Imaging Studies Chest X-Ray 07/17/21 17:00 IMPRESSION: Endotracheal and enteric tubes in satisfactory positions. Electronically Signed: Eli Juarez MD at 17:45 EST Tel , Service support , Critical Care Time Critical Care Time: Yes Critical care time (excluding procedures): 75-104 minutes, Discussing w/Patient &/or Family/Emergency Management Director, Discussing w/Consultants, Arranging Admission or Transfer, Performing Direct Patient Care at Bedside and - (Separate from central line and intubation, see chart for details, 82 minutes total critical care time at bedside.) Discharge Plan Dx/Rx/DC Orders Clinical Impression: Cardiopulmonary arrest, GI bleed, Severe anemia, Respiratory failure, Required emergent intubation Disposition Disposition: Acute Care [facility] Discharge Date/Time: 07/17/21 23:30
[2021-07-17 17:18] LABS: Color, Urine Yellow (Yellow); Glucose, Dipstick Normal (Normal); Ketone-Dipstick 5 mg/dl (Negative); Leukocyte Esterase-Dipstick 100 /ul (Negative); Nitrite-Dipstick Negative (Negative); Occult Blood-Urine 150 /ul (Negative); Protein-Dipstick 15 mg/dl (Negative); Urine Bilirubin Dipstick Negative (Negative); Urine Clarity Clear (Clear); Urine Urobilinogen Normal (Normal)
[2021-07-17 17:25] LABS: International Normalized Ratio 1.9; Partial Thromboplast Time 41.9 Seconds (24.1-36.2); Prothrombin Time (Protime)PT. 20.6 SECONDS (11.7-14.9)
[2021-07-17 17:25] LABS: Allen Test Positive; Base Excess -9 mmol/L (-2 to +2); Bicarbonate 16.3 mmol/L (22-26); Blood Gas Specimen Type ART; FI02 100; Mode AC; O2 Delivery Device Adult Vent; PEEP 10; PO2 142 mmHG (75-100); RR 16; SITE L Radial; SO2 99 % (95-99); Total Carbon Dioxide 17 mmol/L; Vt 400; pCO2 26.5 mmHg (35-45)
[2021-07-17 17:28] LABS: ALB/GLOB Ratio 0.8 RATIO (0.9-2.4); AST(SGOT) 49 U/L (15-37); Alanine Aminotransfer ALT/SGPT 61 U/L (16-61); Albumin, Serum 2.1 g/dL (3.2-5.0); Alkaline Phosphatase 112 U/L (45-117); Anion Gap 26 (5-15); BUN 42 mg/dL (7-18); BUN/Creat Ratio 24.4 RATIO (10-20); Calcium,Total 7.6 mg/dL (8.5-10.1); Chloride 102 mmol/L (98-107); Creatinine, Serum 1.72 mg/dL (0.70-1.30); EST Glomerular Filtration Rate 42 mL/min (>60); Est Glom Filt Rate - Afr Amer 51 mL/min (>60); Estimated Creatinine Clearance 39.39 ml/min; Globulin 2.5 g/dL (2.2-4.2); Glucose 386 mg/dL (74-106); Potassium 3.5 mmol/L (3.5-5.1); Protein, Total 4.6 g/dL (6.4-8.2); Sodium Level 135 mmol/L (136-145); Troponin-I HS 88 pg/mL (3.0-78.0)
[2021-07-17 17:33] LABS: Red Blood Cells-Urine 0-5 SEEN /hpf (0-5); White Blood Cells 0-5 SEEN /hpf (0-5)
[2021-07-17 17:34] LABS: Acanthocytes 1+; Anisocytosis 3+; Differential Comment SCANNED; Hypochromasia 2+; Macrocytosis 1+; Microcytosis 2+; Poikilocytosis 1+; Reactive Lymphocyte 1+
[2021-07-17 17:38] LABS: Lactic Acid 18.6 mmol/L (0.4-1.9)
--- NOTE | 2021-07-17 19:33 | HP.PCM.HOS_ITS ---
HPI - General HPI Narrative LAVERNE SAWYER, is a 71 M with a significant history of CAD status post 2 stents with stent placement in October 2020; COPD; diabetes mellitus who presents to the emergency department with black and tarry stools diarrhea for about 1 week. Associated with symptoms is malaise and nausea. Also patient has been having shortness of breath for about 2 weeks. His after several persuasion convinced patient to come to the Hospital. Just after patient was ready to come to the hospital patient collapsed. Paramedics were called. At the emergent department patient was found to be in PEA. Patient was succe ssful resuscitated at the emergency department. Patient was intubated at the emergency department. later stated that patient does not want to be on any machine and if patient is to arrest again no CPR should be initiated. And if ET tube should come out for any reason it should not be placed back. At the emergency department trauma blood was ordered. After the first 3 units of pack red blood cells was transfused patient's hemoglobin was check for the first time; and it was 4.1. Emergency department reported discussing the case with a GI who agreed with holding antiplatelets and volume resuscitation at this time. [facility] Medical History Agent orange exposure Atherosclerotic heart disease of [place] coronary artery without angina pectoris COPD (chronic obstructive pulmonary disease) COPD with acute exacerbation Hyperglycemia Leukocytosis Presence of stent in coronary artery (~10/31/20) STEMI (ST elevation myocardial infarction) Home Medications Centrum Men 1 tab PO DAILY 06/14/18 [History Last Taken 10/30/20] albuterol sulfate [Ventolin HFA] 1 - 2 puff INHALATION TID PRN 06/14/18 [History Last Taken 10/30/20] Vitamin C 10/31/20 [History Last Taken Unknown] fluticasone propion-salmeterol 1 each IH BID 10/31/20 [History Last Taken 10/30/20] aspirin 81 mg PO DAILY@0800 tab.chew 11/02/20 [Rx Last Taken Unknown] atorvastatin 40 mg PO QHS #30 tablet 11/02/20 [Rx Last Taken Unknown] lisinopril 5 mg PO DAILY #30 tablet 11/02/20 [Rx Last Taken Unknown] metoprolol tartrate 25 mg PO BID #60 tablet 11/02/20 [Rx Last Taken Unknown] ticagrelor 90 mg PO BID #60 tablet 11/02/20 [Rx Last Taken Unknown] Allergy/AdvReac Type Severity Reaction Status Date / Time No Known Allergies Allergy Verified 07/17/21 16:29 Family History Other Diabetes Heart disease Surgical History Presence of coronary angioplasty implant and graft (~10/31/20) Social History Smoking Status: Former smoker ROS ROS Narrative Pertinent positives and pertinent negatives as noted in HPI. All other systems were reviewed and are negative. Vital Signs Vital Signs Vital Signs: 07/17/21 16:22 07/17/21 16:27 07/17/21 16:29 Temperature 97 F L Temperature Source Temporal Pulse Rate 83 100 Pulse Rate [10] Pulse Rate [5] 81 Pulse Rate [9] 60 Respiratory Rate 16 23 H Respiratory Rate [9] 18 Respiratory Effort Respiratory Depth Respiratory Pattern Normal Blood Pressure 88/48 L Blood Pressure [10] Blood Pressure [9] 40/28 L Blood Pressure Mean 61 Blood Pressure Source Blood Pressure Position Blood Pressure Location Pulse Ox 93 Oxygen Delivery Method Ambu-Bag Fraction of Inspired Oxygen (FIO2) 100 07/17/21 16:34 07/17/21 16:46 07/17/21 16:47 Temperature Temperature Source Pulse Rate 105 H 53 L Pulse Rate [10] Pulse Rate [5] Pulse Rate [9] Respiratory Rate 20 H 18 Respiratory Rate [9] Respiratory Effort Respiratory Depth Respiratory Pattern Blood Pressure 65/43 L 32/14 L 32/14 L Blood Pressure [10] Blood Pressure [9] Blood Pressure Mean 50 20 20 Blood Pressure Source Blood Pressure Position Blood Pressure Location Pulse Ox Oxygen Delivery Method Fraction of Inspired Oxygen (FIO2) 07/17/21 16:50 07/17/21 16:56 07/17/21 16:58 Temperature Temperature Source Pulse Rate 68 Pulse Rate [10] Pulse Rate [5] Pulse Rate [9] Respiratory Rate 20 H Respiratory Rate [9] Respiratory Effort Normal Non-Labored Respiratory Depth Normal Respiratory Pattern Normal Blood Pressure 71/52 L 67/53 L Blood Pressure [10] Blood Pressure [9] Blood Pressure Mean 58 57 Blood Pressure Source Blood Pressure Position Blood Pressure Location Pulse Ox 84 Oxygen Delivery Method Mechanical Ventilator Mechanical Ventilator Fraction of Inspired Oxygen (FIO2) 07/17/21 17:05 07/17/21 17:07 07/17/21 17:09 Temperature Temperature Source Pulse Rate 88 70 75 Pulse Rate [10] Pulse Rate [5] Pulse Rate [9] Respiratory Rate 20 H 19 H 20 H Respiratory Rate [9] Respiratory Effort Respiratory Depth Respiratory Pattern Blood Pressure 69/49 L 104/36 L 104/36 L Blood Pressure [10] Blood Pressure [9] Blood Pressure Mean 55 58 58 Blood Pressure Source Blood Pressure Position Blood Pressure Location Pulse Ox 85 83 85 Oxygen Delivery Method Mechanical Ventilator Mechanical Ventilator Mechanical Ventilator Fraction of Inspired Oxygen (FIO2) 07/17/21 17:15 07/17/21 17:19 07/17/21 17:26 Temperature Temperature Source Pulse Rate Pulse Rate [10] 53 L Pulse Rate [5] Pulse Rate [9] Respiratory Rate Respiratory Rate [9] Respiratory Effort Respiratory Depth Respiratory Pattern Blood Pressure 106/45 L 121/75 H Blood Pressure [10] 32/14 L Blood Pressure [9] Blood Pressure Mean 65 90 Blood Pressure Source Blood Pressure Position Blood Pressure Location Pulse Ox Oxygen Delivery Method Fraction of Inspired Oxygen (FIO2) 07/17/21 17:28 07/17/21 17:30 07/17/21 17:36 Temperature Temperature Source Pulse Rate Pulse Rate [10] Pulse Rate [5] Pulse Rate [9] Respiratory Rate Respiratory Rate [9] Respiratory Effort Respiratory Depth Respiratory Pattern Blood Pressure 121/75 H 120/81 H 132/90 H Blood Pressure [10] Blood Pressure [9] Blood Pressure Mean 90 94 104 Blood Pressure Source Blood Pressure Position Blood Pressure Location Pulse Ox Oxygen Delivery Method Fraction of Inspired Oxygen (FIO2) 07/17/21 17:41 07/17/21 17:46 07/17/21 17:51 Temperature Temperature Source Pulse Rate Pulse Rate [10] Pulse Rate [5] Pulse Rate [9] Respiratory Rate Respiratory Rate [9] Respiratory Effort Respiratory Depth Respiratory Pattern Blood Pressure 128/104 H 115/86 H Blood Pressure [10] Blood Pressure [9] Blood Pressure Mean 112 95 Blood Pressure Source Blood Pressure Position Blood Pressure Location Pulse Ox Oxygen Delivery Method Fraction of Inspired Oxygen (FIO2) 90 07/17/21 17:56 07/17/21 18:00 07/17/21 18:18 Temperature 96.3 F L Temperature Source Temporal Pulse Rate 77 74 Pulse Rate [10] Pulse Rate [5] Pulse Rate [9] Respiratory Rate 20 H 19 H Respiratory Rate [9] Respiratory Effort Respiratory Depth Respiratory Pattern Blood Pressure 125/99 H 119/75 101/72 Blood Pressure [10] Blood Pressure [9] Blood Pressure Mean 107 89 81 Blood Pressure Source Monitor Blood Pressure Position Semi-Fowlers Blood Pressure Location Right Arm Pulse Ox 100 100 Oxygen Delivery Method Mechanical Ventilator Mechanical Ventilator Fraction of Inspired Oxygen (FIO2) 07/17/21 18:22 07/17/21 18:33 07/17/21 19:12 Temperature 96.3 F L Temperature Source Temporal Pulse Rate 77 Pulse Rate [10] Pulse Rate [5] Pulse Rate [9] Respiratory Rate 19 H Respiratory Rate [9] Respiratory Effort Respiratory Depth Respiratory Pattern Blood Pressure 104/82 H 124/91 H 73/52 L Blood Pressure [10] Blood Pressure [9] Blood Pressure Mean 89 102 59 Blood Pressure Source Monitor Blood Pressure Position Semi-Fowlers Blood Pressure Location Right Arm Pulse Ox 100 Oxygen Delivery Method Mechanical Ventilator Fraction of Inspired Oxygen (FIO2) 07/17/21 19:20 Temperature Temperature Source Pulse Rate Pulse Rate [10] Pulse Rate [5] Pulse Rate [9] Respiratory Rate Respiratory Rate [9] Respiratory Effort Respiratory Depth Respiratory Pattern Blood Pressure 119/65 Blood Pressure [10] Blood Pressure [9] Blood Pressure Mean 83 Blood Pressure Source Blood Pressure Position Blood Pressure Location Pulse Ox Oxygen Delivery Method Fraction of Inspired Oxygen (FIO2) Weight Weight: 89.8 kg Body Mass Index (BMI) 29.2 Physical Exam Narrative Physical exam: General: Well-nourished, well-developed. Head: Normocephalic, atraumatic, no tenderness Eyes: Pupils are fixed ENT: ET tube in place. Neck: Nontender, no deformities, step-off CVS: Regular rate and rhythm. S1-S2 present. No murmur, gallop or rub. Respiratory : Respiratory distress; mild to moderate wheezes. chest wall nontender. Abdomen: Soft, nontender, nondistended, normal bowel sounds, no masses : Rectal exams with dark liquid stools. No masses palpated. No hemorrhoids seen. Back: Nontender, , no midline spinal tenderness, no deformities, no step-offs Extremities: Nontender; no edema no cyanosis. Skin: Normal color, no trauma, abrasions Neuro: Comatose. Breathing over vent. Psychiatry: Intubated and on mechanical ventilation Results Lab / Micro Data Result Diagrams: 07/17/21 16:45 07/17/21 16:45 Labs: Laboratory Results - last 24 hr 07/17/21 16:45: PT 20.6 H, INR 1.9, APTT 41.9 H 07/17/21 16:45: WBC 13.4 H, RBC 1.79 L, Hgb 4.1 L*, Hct 15.4 L, MCV 86.0, MCH 22.9 L, MCHC 26.6 L, RDW Std Deviation 60.0 H, RDW Coeff of Rose 19.8 H, Plt Count 320, MPV 9.9, Immature Gran % (Auto) 4.300 H, Neut % (Auto) 43.7 L, Lymph % (Auto) 45.7 H, [place] % (Auto) 5.9, Eos % (Auto) 0.3, Baso % (Auto) 0.1, Absolute Neuts (auto) 5.8, Absolute Lymphs (auto) 6.11 H, Nucleated RBC % 9.9 H, Differential Comment SCANNED, Diff Path Review May foll, Reactive Lymphocytes 1+, Hypochromasia 2+, Poikilocytosis 1+, Anisocytosis 3+, Microcytosis 2+, Macrocytosis 1+, Acanthocytes (Spur) 1+ 07/17/21 16:45: Sodium 135 L, Potassium 3.5, Chloride 102, Carbon Dioxide 7.0 L* , Anion Gap 26 H, BUN 42 H, Creatinine 1.72 H, Estim Creat Clear Calc 39.39, Est GFR (MDRD) Af Amer 51 L, Est GFR (MDRD) Non-Af 42 L, BUN/Creatinine Ratio 24.4 H, Glucose 386 H, Calcium 7.6 L, Total Bilirubin 0.30, AST 49 H, ALT 61, Alkaline Phosphatase 112, Troponin I High Sens 88 H, Total Protein 4.6 L, Albumi n 2.1 L, Globulin 2.5, Albumin/Globulin Ratio 0.8 L 07/17/21 16:45: Lactic Acid 18.6 H* 07/17/21 16:55: Blood Type O POSITIVE, Antibody Screen NEGATIVE, Crossmatch See Detail 07/17/21 16:55: Crossmatch See Detail 07/17/21 16:55: Blood Type O POSITIVE, Antibody Screen NEGATIVE 07/17/21 16:57: Blood Type O POSITIVE, Antibody Screen NEGATIVE, Crossmatch See Detail 07/17/21 16:59: Urine Color Yellow, Urine Clarity Clear, Urine pH 6.0, Ur Specific [place] 1.020, Urine Protein 15 H, Urine Glucose (UA) Normal, Urine Ketones 5 H, Urine Occult Blood 150 H, Urine Nitrite Negative, Urine Bilirubin Negative, Urine Urobilinogen Normal, Ur Leukocyte Esterase 100 H, Urine RBC 0-5 SEEN, Urine WBC 0-5 SEEN, Ur Squamous Epith Cells 0 SEEN, Urine Bacteria 0 SEEN, Urine Mucus 0 SEEN ABG Data ABG results: ABG 07/17/21 17:21 Specimen Type ART Sample Site L Radial pH 7.40 Bicarbonate Actual 16.3 L Total CO2 17 Base Excess -9 L O2 Saturation 99 O2 % 100 ABG pCO2 26.5 L ABG pO2 142 H Antoni Test Positive Respiration Rate 16 O2 Delivery Device Adult Vent Vent Mode AC Tidal Volume 400 POC PEEP 10 Radiology Impression Chest X-Ray 07/17/21 17:00 IMPRESSION: Endotracheal and enteric tubes in satisfactory positions. Electronically Signed: Eli Juarez MD at 17:45 EST Tel , Service support , Assessment & Plan Assessment/Plan (1) Hemorrhagic shock: PLAN: Hemorrhagic shock Hemoglobin 4.1 after transfusion of 3 units of trauma blood. Review of records shows baseline hemoglobin around 13-15. Reported black and tarry stools and on physical examination. Received normal saline bolus at the emergency department. Received trauma blood at emergency department. Also received type and cross blood at the emergency department. If hemoglobin is less than 7 or 8 with pressors and further evidence of bleeding will transfuse more pack of blood cells and at that time will consider massive transfusion protocol with other blood products. Maintenance normal saline infusion ordered. Protonix drip started at emergency department and continued. Trend H&H. Hold antiplatelets. Admit to intensive care and consult grain elevator motor starter. GI consult. Anion gap metabolic acidosis and non anion gap metabolic acidosis Patient bicarb of 7. Anion gap of 26. Lactic acid of 18.6. Likely secondary to Lactic acidosis and diarrhea. Trend lactic acid. Biacarb ordered. Trend BMP. LICHA Creatinine on presentation was 1.72. Baseline creatinine is around 1. Likely secondary to diarrhea and hemorrhagic shock. IV fluid and pressors as above. Trend BMP. Diabetes mellitus Patient with hyperglycemia on presentation Accu-Chek correction scale insulin ordered Wheezes [id number] DuoNeb ordered. DVT prophylaxis: SCD ordered. Charges/Coding Visit Charges Inpatient E&M: 07837 Init Hosp L3
[2021-07-17] MEDS: Propofol 10MG/Ml 1,000 MG/100 ML Bottle 5.4 MG CONT INF (20:43)
[2021-07-17 20:51] LABS: Reflex Lactate? Y
--- NOTE | 2021-07-17 21:43 | NURSING ---
[facility]ED [facility] AT [phone] AND TRIED TO GET A HOLD OF TRANSFER LINE BUT DID NOT GET AN ANSWER.
[2021-07-17 22:27] LABS: Lactic Acid 9.4 mmol/L (0.4-1.9)
--- NOTE | 2021-07-17 23:10 | RAD_ITS ---
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 This report was created using [employer] report Tripping technology. COMPARISON: None. FINDINGS: Lungs and pleural spaces: Unremarkable. No consolidation or edema. No pneumothorax. No effusion. Heart: Unremarkable. Cardiac silhouette not enlarged. Mediastinum: Central airways and mediastinal contour are unremarkable. Bones/joints: Unremarkable. Soft tissues: Unremarkable. Tubes, lines and devices: Right internal jugular central venous catheter tip in the upper superior vena cava. The endotracheal tube (ETT) is in satisfactory position with tip 4.9 cm above the archana. Enteric tube tip in the stomach. RAD/Chest 1 View (Portable) IMPRESSION: Right internal jugular central venous catheter tip in the upper superior vena cava. Electronically Signed: Rufus Krause MD at 0:22 EST Tel , Service support ,
[2021-07-18] VITALS (89 sets, daily range): BP systolic 75–139; BP diastolic 48–114; PULSE 60–121; RESP 23–34; TEMP 36.6–37.7; O2SAT 88–116; BMI 25.2
--- NOTE | 2021-07-18 00:10 | NURSING ---
PANDEMIC DOCUMENTATION DATE: 07/17/21 TIME: 2806
[2021-07-18 00:36] LABS: Base Excess -14 mmol/L (-2 to +2); Bicarbonate 10.6 mmol/L (22-26); Blood Gas Specimen Type ART; FI02 30; Mode AC; O2 Delivery Device Adult Vent; PEEP 5; PO2 89 mmHG (75-100); RR 16; SITE L Radial; SO2 97 % (95-99); Total Carbon Dioxide 11 mmol/L; Vt 400; pCO2 17.5 mmHg (35-45); pH 7.39 (7.35-7.45)
[2021-07-18] MEDS: 0.9% Normal Saline 1,000 ML 100 ML IV ×2 (00:44→10:39)
[2021-07-18] MEDS: Chlorhexidine 15 ML PO ×3 (00:44→20:57)
[2021-07-18] MEDS: 0.9% Saline Lock 10 ML Syringe IV ×2 (00:45→05:43)
[2021-07-18 00:55] LABS: Bedside Glucose 205 mg/dL (70-110)
[2021-07-18] MEDS: Sodium Bicarbonate 8.4% 50 ML Syringe 50 MEQ IV ×2 (01:02→03:46)
[2021-07-18] MEDS: Insulin Lispro 100 UNIT/ML INSULN.PEN SC ×6 (01:15→22:26)
[2021-07-18 01:28] LABS: Hematocrit 31.6 % (40-54); Hemoglobin 10.6 g/dL (13.0-16.5)
[2021-07-18 01:31] LABS: Anion Gap 16 (5-15); BUN 50 mg/dL (7-18); BUN/Creat Ratio 24.2 RATIO (10-20); Calcium,Total 6.9 mg/dL (8.5-10.1); Chloride 108 mmol/L (98-107); Creatinine, Serum 2.07 mg/dL (0.70-1.30); EST Glomerular Filtration Rate 34 mL/min (>60); Est Glom Filt Rate - Afr Amer 41 mL/min (>60); Estimated Creatinine Clearance 31.67 ml/min; Glucose 199 mg/dL (74-106); Potassium 2.9 mmol/L (3.5-5.1); Sodium Level 137 mmol/L (136-145)
[2021-07-18] MEDS: Ipratropium/Albuterol Sulfate 3 ML AMPUL.NEB INHALATION ×5 (03:29→20:22)
[2021-07-18] MEDS: CHLORHEXIDINE GLUC 2% CLOTH 1 EACH TOWELETTE TOPICAL (05:44)
[2021-07-18] MEDS: TITRATION PARAMETER CHANGE 1 EACH IV (05:44)
[2021-07-18 05:50] LABS: Bedside Glucose 188 mg/dL (70-110)
[2021-07-18 05:56] LABS: Absolute Lymphocyte Count 0.55 X10^3/uL (0.83-4.51); Absolute Neutrophil Count 25.4 X10^3/uL (2.0-7.7); Basophil# 0.04 X10^3/uL; Basophil% 0.1 % (0-1); Hematocrit 27.2 % (40-54); Hemoglobin 9.4 g/dL (13.0-16.5); Lymphocyte # 0.55 X10^3/ul (0.83-4.51); Mean Corp Hgb Conc 34.6 g/dL (32-36); Mean Corpuscular Volume 78.2 fL (80-94); Mean Platelet Vol. 9.1 fl (6.2-12.0); Monocyte# 0.86 X10^3/uL; Monocyte% 3.2 % (0-10); NRBC Flagged by Analyzer 2.6 % (0-5); Neutrophil # 25.37 X10^3/uL (2.7-7.7); Neutrophil % 93.3 % (47-70); POSITIVE DIFFERENTIAL YES; Platelet Count 285 K/mm3 (150-450); RBC Distribution Width SD 50.6 fl (35.1-43.9); Red Blood Count 3.48 M/mm3 (4.6-6.2); White Blood Count 27.2 K/mm3 (4.4-11.0)
[2021-07-18 06:30] LABS: ALB/GLOB Ratio 0.8 RATIO (0.9-2.4); AST(SGOT) 386 U/L (15-37); Alanine Aminotransfer ALT/SGPT 273 U/L (16-61); Albumin, Serum 2.1 g/dL (3.2-5.0); Alkaline Phosphatase 159 U/L (45-117); Anion Gap 14 (5-15); BUN 55 mg/dL (7-18); BUN/Creat Ratio 21.2 RATIO (10-20); Calcium,Total 6.9 mg/dL (8.5-10.1); Chloride 110 mmol/L (98-107); EST Glomerular Filtration Rate 26 mL/min (>60); Est Glom Filt Rate - Afr Amer 31 mL/min (>60); Estimated Creatinine Clearance 25.21 ml/min; Globulin 2.5 g/dL (2.2-4.2); Glucose 169 mg/dL (74-106); Potassium 2.8 mmol/L (3.5-5.1); Protein, Total 4.6 g/dL (6.4-8.2); Sodium Level 139 mmol/L (136-145)
[2021-07-18 06:59] LABS: Differential Indicated SCAN CRITERIA MET
[2021-07-18 07:06] LABS: Partial Thromboplast Time 35.5 Seconds (24.1-36.2)
[2021-07-18 07:07] LABS: International Normalized Ratio 1.5; Prothrombin Time (Protime)PT. 17.1 SECONDS (11.7-14.9)
[2021-07-18 07:39] LABS: Anisocytosis 1+; Hypochromasia 1+
--- NOTE | 2021-07-18 07:45 | PN.HOSP_ITS ---
Subjective Subjective Follow-up on acute hemorrhagic shock: Patient was seen and examined. He still has dark blood from the OG tube. Seen sedated, intubated, on mechanical ventilator. Still on Levophed. Patient has been transfused with 6 units of packed RBCs. Objective Data Objective Data Vital Signs: Vital Signs Temp Pulse Resp BP Pulse Ox 98 F 98 29 H 96/55 L 96 07/18/21 04:00 07/18/21 07:19 07/18/21 07:19 07/18/21 07:00 07/18/21 07:19 Oxygen Delivery Method Mechanical Ventilator Weight: 77.2 kg Body Mass Index (BMI) 25.2 Intake & Output: Intake and Output for Last 24 Hours 07/16/21 07/17/21 07/18/21 23:59 23:59 23:59 Intake Total 2100.41 / 2192.86 930.61 / 930.61 Output Total 450 / 450 Balance 2100.41 / 2192.86 480.61 / 480.61 Lab / Micro Data Result Diagrams: 07/18/21 05:40 07/18/21 05:40 Labs: Laboratory Results - last 24 hr 07/17/21 00:40: Sodium 137, Potassium 2.9 L, Chloride 108 H, Carbon Dioxide 13.0 L, Anion Gap 16 H, BUN 50 H, Creatinine 2.07 H, Estim Creat Clear Calc 31.67, Est GFR (MDRD) Af Amer 41 L, Est GFR (MDRD) Non-Af 34 L, BUN/Creatinine Ratio 24.2 H, Glucose 199 H, Calcium 6.9 L 07/17/21 16:35: Crossmatch See Detail 07/17/21 16:45: PT 20.6 H, INR 1.9, APTT 41.9 H 07/17/21 16:45: WBC 13.4 H, RBC 1.79 L, Hgb 4.1 L*, Hct 15.4 L, MCV 86.0, MCH 22.9 L, MCHC 26.6 L, RDW Std Deviation 60.0 H, RDW Coeff of Rose 19.8 H, Plt Count 320, MPV 9.9, Immature Gran % (Auto) 4.300 H, Neut % (Auto) 43.7 L, Lymph % (Auto) 45.7 H, [place] % (Auto) 5.9, Eos % (Auto) 0.3, Baso % (Auto) 0.1, Absolute Neuts (auto) 5.8, Absolute Lymphs (auto) 6.11 H, Nucleated RBC % 9.9 H, Differential Comment SCANNED, Diff Path Review May foll, Reactive Lymphocytes 1+, Hypochromasia 2+, Poikilocytosis 1+, Anisocytosis 3+, Microcytosis 2+, Macrocytosis 1+, Acanthocytes (Spur) 1+ 07/17/21 16:45: Sodium 135 L, Potassium 3.5, Chloride 102, Carbon Dioxide 7.0 L* , Anion Gap 26 H, BUN 42 H, Creatinine 1.72 H, Estim Creat Clear Calc 39.39, Est GFR (MDRD) Af Amer 51 L, Est GFR (MDRD) Non-Af 42 L, BUN/Creatinine Ratio 24.4 H , Glucose 386 H, Calcium 7.6 L, Total Bilirubin 0.30, AST 49 H, ALT 61, Alkaline Phosphatase 112, Troponin I High Sens 88 H, Total Protein 4.6 L, Albumin 2.1 L, Globulin 2.5, Albumin/Globulin Ratio 0.8 L 07/17/21 16:45: Lactic Acid 18.6 H* 07/17/21 16:55: Blood Type O POSITIVE, Antibody Screen NEGATIVE, Crossmatch See Detail 07/17/21 16:55: Crossmatch See Detail 07/17/21 16:55: Blood Type O POSITIVE, Antibody Screen NEGATIVE 07/17/21 16:57: Blood Type O POSITIVE, Antibody Screen NEGATIVE, Crossmatch See Detail 07/17/21 16:59: Urine Color Yellow, Urine Clarity Clear, Urine pH 6.0, Ur Specific [place] 1.020, Urine Protein 15 H, Urine Glucose (UA) Normal, Urine Ketones 5 H, Urine Occult Blood 150 H, Urine Nitrite Negative, Urine Bilirubin Negative, Urine Urobilinogen Normal, Ur Leukocyte Esterase 100 H, Urine RBC 0-5 SEEN, Urine WBC 0-5 SEEN, Ur Squamous Epith Cells 0 SEEN, Urine Bacteria 0 SEEN, Urine Mucus 0 SEEN 07/17/21 21:32: Lactic Acid 9.4 H* 07/18/21 00:40: Hgb 10.6 L, Hct 31.6 L 07/18/21 00:40: POC Glucose 205 H 07/18/21 05:40: WBC 27.2 H, RBC 3.48 L, Hgb 9.4 L, Hct 27.2 L, MCV 78.2 L D, MCH 27.0, MCHC 34.6 D, RDW Std Deviation 50.6 H, RDW Coeff of Rose 18.0 H, Plt Count 285, MPV 9.1, Immature Gran % (Auto) 1.400 H, Neut % (Auto) 93.3 H, Lymph % (Auto) 2.0 L, [place] % (Auto) 3.2, Eos % (Auto) 0.0, Baso % (Auto) 0.1, Absolute Neuts (auto) 25.4 H, Absolute Lymphs (auto) 0.55 L, Nucleated RBC % 2.6, Hypochromasia 1+, Anisocytosis 1+ 07/18/21 05:40: Sodium 139, Potassium 2.8 L, Chloride 110 H, Carbon Dioxide 15.0 L, Anion Gap 14, BUN 55 H, Creatinine 2.60 H, Estim Creat Clear Calc 25.21, Est GFR (MDRD) Af Amer 31 L, Est GFR (MDRD) Non-Af 26 L, BUN/Creatinine Ratio 21.2 H , Glucose 169 H, Calcium 6.9 L, Total Bilirubin 1.10 H, AST 386 H, ALT 273 H, Alkaline Phosphatase 159 H, Total Protein 4.6 L, Albumin 2.1 L, Globulin 2.5, Albumin/Globulin Ratio 0.8 L 07/18/21 05:40: POC Glucose 188 H 07/18/21 05:40: APTT 35.5 07/18/21 05:40: PT 17.1 H, INR 1.5 Micro: Microbiology 07/17/21 19:20 Stool Stool Occult Blood (KISHA) - Final Occult Blood Positive ABG Data ABG results: ABG 07/17/21 07/18/21 17:21 00:27 Specimen Type ART ART Sample Site L Radial L Radial pH 7.40 7.39 Bicarbonate Actual 16.3 L 10.6 L Total CO2 17 11 Base Excess -9 L -14 L O2 Saturation 99 97 O2 % 100 30 ABG pCO2 26.5 L 17.5 L* ABG pO2 142 H 89 Antoni Test Positive N/A Respiration Rate 16 16 O2 Delivery Device Adult Vent Adult Vent Vent Mode AC AC Tidal Volume 400 400 POC PEEP 10 5 Crit Call To/Read Back Yes Blood Gas Notified Whom Dr Chamberlain Radiography Diagnostic Testing: Radiology Impression Chest X-Ray 07/17/21 17:00 IMPRESSION: Endotracheal and enteric tubes in satisfactory positions. Electronically Signed: Eli Juarez MD at 17:45 EST Tel , Service support , Chest X-Ray 07/17/21 23:10 IMPRESSION: Right internal jugular central venous catheter tip in the upper superior vena cava. Electronically Signed: Rufus Krause MD at 0:22 EST Tel , Service support , Physical Exam Narrative Physical exam: General: Sedated, intubated, on mechanical ventilator, pale, not jaundiced HEENT: Atraumatic Oral: Moist Mucosa Neck: Supple Lungs: Diminished to auscultation Cardiovascular: HS I+II, regular, no murmurs Abdomen: Bowel Sounds Present, Soft, Non Tender Extremities: No edema Assessment & Plan Assessment/Plan (1) Hemorrhagic shock: (2) GI bleed: QUALIFIERS: GI bleed type/associated pathology: gastrointestinal hemorrhage with hematemesis Qualified Code(s): K92.0 - Hematemesis (3) Severe anemia: (4) Cardiopulmonary arrest: PLAN: 1. Acute severe anemia secondary to acute GI bleed Patient presented with hemoglobin of 4.1, status post 6 units packed RBC. Hemoglobin now is 9.4, patient with ongoing dark bleeding from the NG tube 2. Acute GI bleed, likely upper, NG tube has dark profuse bleeding GI consulted, continue on IV PPI 3. Acute respiratory failure status post cardiopulmonary arrest, status post intubation, Patient intubated for primary airway protection Likely etiology for cardiopulmonary arrest is #1 4. Hypokalemia, potassium was 2.8, replaced Check magnesium level 5. LICHA, prerenal, secondary to #2 Creatinine is currently 2.6, will continue to trend 6. Anion gap metabolic acidosis secondary to lactic acidosis 7. Acute hemorrhagic shock secondary to #2, patient remains on Levophed 8. Elevated transaminases secondary to hypotension Continue to trend 9. Lactic acidosis, secondary to #3, admitting lactic acid 9.4 Will trend 10. Recent CAD status post stent to RCA Hold off aspirin and Plavix in the light of current acute GI bleed 11. DVT PPx- SCDs Charges/Coding Visit Charges Inpatient E&M: 90750 Subs Hosp L3
[2021-07-18] MEDS: Potassium Chloride 20mEq/100mL 20 MEQ/100 ML IV.SOLN. 100 MEQ IV BOLUS ×2 (09:07→11:33)
--- NOTE | 2021-07-18 09:16 | CON.PCM.GI_ITS ---
HPI Consult Data Date of Consult: 07/18/21 HPI Narrative HPI Narrative: LAVERNE SAWYRE, is a 71 M who presents to the hospital with 1 week of fatigue and shortness of breath. The patient collapsed at home and was found to have a PEA arrest. After multiple episodes of CPR the patient was able to be resuscitated. In the ED he had multiple episodes of melanotic stools. He has a past medical history significant for coronary artery disease status post PTCA with 2 stents placed in October 2020. He is on dual antiplatelet therapy. In the ED was discovered to have a significant drop in hemoglobin to a level 4.1 after he was rapidly transfused 3 units of packed red blood cells. He was intubated and sedated in the ED. Mom at this time remains on pressors. Almost all the history is times in the chart. [facility] Medical History (Updated 07/18/21 @ 09:[address] 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 Atherosclerotic heart disease of [place] coronary artery without angina pectoris COPD (chronic obstructive pulmonary disease) COPD with acute exacerbation Hyperglycemia Leukocytosis Presence of stent in coronary artery (~10/31/20) STEMI (ST elevation myocardial infarction) Home Medications Centrum Men 1 tab PO DAILY 06/14/18 [History Last Taken 10/30/20] albuterol sulfate [Ventolin HFA] 1 - 2 puff INHALATION TID PRN 06/14/18 [History Last Taken 10/30/20] Vitamin C 10/31/20 [History Last Taken Unknown] fluticasone propion-salmeterol 1 each IH BID 10/31/20 [History Last Taken 10/30/20] aspirin 81 mg PO DAILY@0800 tab.chew 11/02/20 [Rx Last Taken Unknown] atorvastatin 40 mg PO QHS #30 tablet 11/02/20 [Rx Last Taken Unknown] lisinopril 5 mg PO DAILY #30 tablet 11/02/20 [Rx Last Taken Unknown] metoprolol tartrate 25 mg PO BID #60 tablet 11/02/20 [Rx Last Taken Unknown] ticagrelor 90 mg PO BID #60 tablet 11/02/20 [Rx Last Taken Unknown] Allergy/AdvReac Type Severity Reaction Status Date / Time No Known Allergies Allergy Verified 07/17/21 16:29 Family History Other Diabetes Heart disease Surgical History Presence of coronary angioplasty implant and graft (~10/31/20) Social History Smoking Status: Former smoker ROS ROS Narrative Unable to obtain a review of systems Physical Exam HEENT Head and Scalp: normal to inspection Face and Sinus: face symmetric Nose: external nose normal Mouth: oral and palatal mucosa normal Neck General: normal visual inspection Lymph Lymphatic: no lymphadenopathy noted Chest inspection of chest normal and palpation of chest normal Resp Effort and Inspection: able to speak in complete sentences Cardio regular rate GI non-distended Percussion: normal to percussion Rectal Exam: deferred Lab / Micro Data Result Diagrams: 07/18/21 05:40 07/18/21 05:40 Labs: Laboratory Results - last 24 hr 07/17/21 00:40: Sodium 137, Potassium 2.9 L, Chloride 108 H, Carbon Dioxide 13.0 L, Anion Gap 16 H, BUN 50 H, Creatinine 2.07 H, Estim Creat Clear Calc 31.67, Est GFR (MDRD) Af Amer 41 L, Est GFR (MDRD) Non-Af 34 L, BUN/Creatinine Ratio 24.2 H, Glucose 199 H, Calcium 6.9 L 07/17/21 16:35: Crossmatch See Detail 07/17/21 16:45: PT 20.6 H, INR 1.9, APTT 41.9 H 07/17/21 16:45: WBC 13.4 H, RBC 1.79 L, Hgb 4.1 L*, Hct 15.4 L, MCV 86.0, MCH 22.9 L, MCHC 26.6 L, RDW Std Deviation 60.0 H, RDW Coeff of Rose 19.8 H, Plt Count 320, MPV 9.9, Immature Gran % (Auto) 4.300 H, Neut % (Auto) 43.7 L, Lymph % (Auto) 45.7 H, [place] % (Auto) 5.9, Eos % (Auto) 0.3, Baso % (Auto) 0.1, Absolute Neuts (auto) 5.8, Absolute Lymphs (auto) 6.11 H, Nucleated RBC % 9.9 H, Differential Comment SCANNED, Diff Path Review May foll, Reactive Lymphocytes 1+, Hypochromasia 2+, Poikilocytosis 1+, Anisocytosis 3+, Microcytosis 2+, Macrocytosis 1+, Acanthocytes (Spur) 1+ 07/17/21 16:45: Sodium 135 L, Potassium 3.5, Chloride 102, Carbon Dioxide 7.0 L* , Anion Gap 26 H, BUN 42 H, Creatinine 1.72 H, Estim Creat Clear Calc 39.39, Est GFR (MDRD) Af Amer 51 L, Est GFR (MDRD) Non-Af 42 L, BUN/Creatinine Ratio 24.4 H , Glucose 386 H, Calcium 7.6 L, Total Bilirubin 0.30, AST 49 H, ALT 61, Alkaline Phosphatase 112, Troponin I High Sens 88 H, Total Protein 4.6 L, Albumin 2.1 L, Globulin 2.5, Albumin/Globulin Ratio 0.8 L 07/17/21 16:45: Lactic Acid 18.6 H* 07/17/21 16:55: Blood Type O POSITIVE, Antibody Screen NEGATIVE, Crossmatch See Detail 07/17/21 16:55: Crossmatch See Detail 07/17/21 16:55: Blood Type O POSITIVE, Antibody Screen NEGATIVE 07/17/21 16:57: Blood Type O POSITIVE, Antibody Screen NEGATIVE, Crossmatch See Detail 07/17/21 16:59: Urine Color Yellow, Urine Clarity Clear, Urine pH 6.0, Ur Specific [place] 1.020, Urine Protein 15 H, Urine Glucose (UA) Normal, Urine Ketones 5 H, Urine Occult Blood 150 H, Urine Nitrite Negative, Urine Bilirubin Negative, Urine Urobilinogen Normal, Ur Leukocyte Esterase 100 H, Urine RBC 0-5 SEEN, Urine WBC 0-5 SEEN, Ur Squamous Epith Cells 0 SEEN, Urine Bacteria 0 SEEN, Urine Mucus 0 SEEN 07/17/21 21:32: Lactic Acid 9.4 H* 07/18/21 00:40: Hgb 10.6 L, Hct 31.6 L 07/18/21 00:40: POC Glucose 205 H 07/18/21 05:40: WBC 27.2 H, RBC 3.48 L, Hgb 9.4 L, Hct 27.2 L, MCV 78.2 L D, MCH 27.0, MCHC 34.6 D, RDW Std Deviation 50.6 H, RDW Coeff of Rose 18.0 H, Plt Count 285, MPV 9.1, Immature Gran % (Auto) 1.400 H, Neut % (Auto) 93.3 H, Lymph % (Auto) 2.0 L, [place] % (Auto) 3.2, Eos % (Auto) 0.0, Baso % (Auto) 0.1, Absolute Neuts (auto) 25.4 H, Absolute Lymphs (auto) 0.55 L, Nucleated RBC % 2.6, Hypochromasia 1+, Anisocytosis 1+ 07/18/21 05:40: Sodium 139, Potassium 2.8 L, Chloride 110 H, Carbon Dioxide 15.0 L, Anion Gap 14, BUN 55 H, Creatinine 2.60 H, Estim Creat Clear Calc 25.21, Est GFR (MDRD) Af Amer 31 L, Est GFR (MDRD) Non-Af 26 L, BUN/Creatinine Ratio 21.2 H , Glucose 169 H, Calcium 6.9 L, Total Bilirubin 1.10 H, AST 386 H, ALT 273 H, Alkaline Phosphatase 159 H, Total Protein 4.6 L, Albumin 2.1 L, Globulin 2.5, Albumin/Globulin Ratio 0.8 L 07/18/21 05:40: POC Glucose 188 H 07/18/21 05:40: APTT 35.5 07/18/21 05:40: PT 17.1 H, INR 1.5 Micro: Microbiology 07/17/21 19:20 Stool Stool Occult Blood (KISHA) - Final Occult Blood Positive ABG Data ABG results: ABG 07/17/21 07/18/21 17:21 00:27 Specimen Type ART ART Sample Site L Radial L Radial pH 7.40 7.39 Bicarbonate Actual 16.3 L 10.6 L Total CO2 17 11 Base Excess -9 L -14 L O2 Saturation 99 97 O2 % 100 30 ABG pCO2 26.5 L 17.5 L* ABG pO2 142 H 89 Antoni Test Positive N/A Respiration Rate 16 16 O2 Delivery Device Adult Vent Adult Vent Vent Mode AC AC Tidal Volume 400 400 POC PEEP 10 5 Crit Call To/Read Back Yes Blood Gas Notified Whom Dr Chamberlain Radiology Impression Chest X-Ray 07/17/21 17:00 IMPRESSION: Endotracheal and enteric tubes in satisfactory positions. Electronically Signed: Eli Juarez MD at 17:45 EST Tel , Service support , Chest X-Ray 07/17/21 23:10 IMPRESSION: Right internal jugular central venous catheter tip in the upper superior vena cava. Electronically Signed: Rufus Krause MD at 0:22 EST Tel , Service support , Assessment & Plan Assessment/Plan (1) GI bleed: QUALIFIERS: GI bleed type/associated pathology: gastrointestinal hemorrhage with hematemesis Qualified Code(s): K92.0 - Hematemesis PLAN: Differential diagnosis for acute GI bleed would be peptic ulcer disease secondary to dual antiplatelet therapy in the setting of and vasculopath who is status post PCI with balloon angioplasty and stent placement. This is exacerbated by the fact that he had CPR which could lead to stress gastritis and poor hypoperfusion of the gastrointestinal tract. Patient should undergo ev aluation of his upper GI tract due to the fact that he is still having coffee grounds mixed with bright red blood from his NG tube. Continue PPI drip. I am okay with a blood pressure of around 100, pressure can lead to less GI bleeding. (2) Severe anemia: PLAN: Severe anemia presumed to be secondary to an upper GI bleed. (3) Acute renal failure: PLAN: Acute renal failure possibly secondary to ATN, upper GI bleed with hypoperfusion versus prerenal azotemia. Charges/Coding Visit Charges Inpatient E&M: 28815 Init Hosp L3
[2021-07-18] MEDS: Propofol 10MG/Ml 1,000 MG/100 ML Bottle 2.3 MG CONT INF ×2 (09:46→18:14)
--- NOTE | 2021-07-18 10:02 | EX.PCM.CONCC ---
Assessment & Plan Assessment/Plan (1) Hemorrhagic shock: (2) Severe anemia: (3) Cardiopulmonary arrest: (4) Respiratory failure: (5) Acute renal failure: PLAN: RECOMMENDATIONS: 1. Wean Levophed as tolerated to maintain MAP greater than 65 2. H&H every 6 with transfusion to keep hemoglobin greater than 8 3. Volume resuscitation as tolerated 4. Continue mechanical ventilation until stability of hemodynamics 5. Gastric evaluation per GI, continue PPI twice daily 6. Confirmed CODE STATUS to DNR comfort care arrest without intubation IMPRESSIONS: 1. PEA arrest secondary to hemorrhagic shock secondary to probable GI bleed Prognosis critical at this time secondary to delayed presentation. Patient has had a significant loss of blood over the course of 2 weeks by clinical history. Patient has received 6 units of packed red blood cells, 1 unit of platelets and 2 units of FFP thus far in the hospitalization. GI has been consulted. Patient is on dual platelet therapy. Continue to monitor H&H's closely and transfuse to keep hemoglobin greater than 8. Clinical suspicion for PEA arrest secondary to hypovolemia. Clinical suspicion for an element of consumptive coagulopathy given elevated INR on presentation with 2 weeks of bleeding symptoms. 2. Acute respiratory failure secondary to problem #1 Patient on minimal vent settings at this time. Patient does not have any acute infiltrates to suggest aspiration. However, patient will remain intubated pending stabilization of hemodynamic status. Patient does have a history of COPD, but does not appear to be in exacerbation at this time. 3. Acute kidney injury/early shock liver/anion gap metabolic acidosis Patient with significant worsening in liver enzymes and renal function. Clinical suspicion for ATN secondary to prerenal etiology. Aggressive volume resuscitation. Continue to monitor urine output. No indication for renal replacement therapy at this time, but it may be necessary if symptoms progress. Patient has had some hypokalemia, likely secondary to potassium loss from acidosis. Continue supplementation as necessary. Continue to monitor liver enzymes and renal function. 4. Diabetes mellitus/coronary artery disease/advanced age/delayed presentation Complicates care, management, recovery and prognosis. Patient currently n.p.o. secondary to problem #1. Sliding scale insulin would likely be sufficient at this time. Dual antiplatelet therapy will be held secondary to problem #1. Will attempt to obtain home medication regimen, but no antihypertensives would be indicated. TIME: 40 minutes critical care time spent addressing patient's PEA arrest, hemorrhagic shock, acute respiratory failure, acute kidney injury, review of all data and collaboration with care team HPI Consult Data Date of Consult: 07/18/21 HPI Narrative HPI Narrative: LAVERNE SAWYER is a 71 M, with past medical history listed below, who presents to [facility] 07/17/2021 secondary to shortness of breath. Patient reportedly had refused medical evaluation for 2 weeks for melanotic stools per his spouse. EMS was called secondary to a syncopal event. Reportedly, patient went to PEA arrest while being transported to the emergency department. On arrival to the emergency department, patient was noted to be extremely pale and received trauma blood. Patient does have known heart disease and reportedly was on a blood thinner, Brilinta. Patient reportedly has not had an issue with GI illness in the past. In the ER, patient was afebrile, but tachycardic and hypotensive on presentation. Patient's blood pressures were as low as 31/14. Patient was intubated and placed on 100% FiO2. Laboratory work-up showed an INR of 1.9, bicarbonate of 13, BUN of 50 and creatinine of 2.07. Initial hemoglobin was 4.1, after receiving 3 units of trauma blood. White blood cell count was elevated at 13.4 and lactate was 18.6. UA was unremarkable and an ABG showed respiratory compensation for metabolic acidosis. Chest x-ray showed no infiltrates with support devices in appropriate positions. Since being in the intensive care unit, patient has received a total of 6 units of packed red blood cells throughout the hospital course. Patient remains on Levophed. There has been no recurrence of PEA, but patient does have significant arrhythmias. Patient is on minimal sedation to help with vent synchrony, but FiO2 has been weaned to 30%. Patient did receive platelets and FFP this morning secondary to large volume transfusion. Patient is still having significant coffee-ground return from his OG. Patient's was at the bedside for rounds this morning. She is not able to provide much additional information. Patient reportedly has not been open to a medical evaluation despite having probable bleeding for 2 weeks. She is not aware of previous gastric issues. Patient does carry a diagnosis of COPD, but she is unaware of the severity. Patient's did not bring his medication list for confirmation, but she does state that he is on an inhaler at baseline. 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 Atherosclerotic heart disease of [place] coronary artery without angina pectoris COPD (chronic obstructive pulmonary disease) COPD with acute exacerbation Hyperglycemia Leukocytosis Presence of stent in coronary artery (~10/31/20) STEMI (ST elevation myocardial infarction) Home Medications Centrum Men 1 tab PO DAILY 06/14/18 [History Last Taken 10/30/20] albuterol sulfate [Ventolin HFA] 1 - 2 puff INHALATION TID PRN 06/14/18 [History Last Taken 10/30/20] Vitamin C 10/31/20 [History Last Taken Unknown] fluticasone propion-salmeterol 1 each IH BID 10/31/20 [History Last Taken 10/30/20] aspirin 81 mg PO DAILY@0800 tab.chew 11/02/20 [Rx Last Taken Unknown] atorvastatin 40 mg PO QHS #30 tablet 11/02/20 [Rx Last Taken Unknown] lisinopril 5 mg PO DAILY #30 tablet 11/02/20 [Rx Last Taken Unknown] metoprolol tartrate 25 mg PO BID #60 tablet 11/02/20 [Rx Last Taken Unknown] ticagrelor 90 mg PO BID #60 tablet 11/02/20 [Rx Last Taken Unknown] Allergy/AdvReac Type Severity Reaction Status Date / Time No Known Allergies Allergy Verified 07/17/21 16:29 Family History Other Diabetes Heart disease Surgical History Presence of coronary angioplasty implant and graft (~10/31/20) Social History Smoking Status: Former smoker ROS Review of Systems ROS Unobtainable: due to mental status Physical Exam Const General Appearance: appears older than stated age, intubated and patient mechanically ventilated Orientation / Consciousness: lethargic HEENT Head and Scalp: normal to inspection Mouth: oral and palatal mucosa normal, endotracheal tube in place and OG tube in place Neck General: normal visual inspection Lymph Lymphatic: no lymphadenopathy noted Chest Chest: abnormal inspection of the chest increased A-P diameter and symmetrical chest wall rise; Negative for crepitus Resp Auscultation: diminished lung sounds; Negative for rales, rhonchi or wheezes Percussion: hyperresonance Cardio regular rate GI non-distended Percussion: normal to percussion Rectal Exam: deferred Extremity normal to inspection General Extremity: Negative for clubbing, cyanosis or edema Skin Skin Narrative: Scattered bruising noted Neuro Sensorium / Orientation: lethargic Psych Appearance: intubated Lab / Micro Data Result Diagrams: 07/18/21 05:40 07/18/21 05:40 Labs: Laboratory Results - last 24 hr 07/17/21 00:40: Sodium 137, Potassium 2.9 L, Chloride 108 H, Carbon Dioxide 13.0 L, Anion Gap 16 H, BUN 50 H, Creatinine 2.07 H, Estim Creat Clear Calc 31.67, Est GFR (MDRD) Af Amer 41 L, Est GFR (MDRD) Non-Af 34 L, BUN/Creatinine Ratio 24.2 H, Glucose 199 H, Calcium 6.9 L 07/17/21 16:35: Crossmatch See Detail 07/17/21 16:45: PT 20.6 H, INR 1.9, APTT 41.9 H 07/17/21 16:45: WBC 13.4 H, RBC 1.79 L, Hgb 4.1 L*, Hct 15.4 L, MCV 86.0, MCH 22.9 L, MCHC 26.6 L, RDW Std Deviation 60.0 H, RDW Coeff of Rose 19.8 H, Plt Count 320, MPV 9.9, Immature Gran % (Auto) 4.300 H, Neut % (Auto) 43.7 L, Lymph % (Auto) 45.7 H, [place] % (Auto) 5.9, Eos % (Auto) 0.3, Baso % (Auto) 0.1, Absolute Neuts (auto) 5.8, Absolute Lymphs (auto) 6.11 H, Nucleated RBC % 9.9 H, Differential Comment SCANNED, Diff Path Review May foll, Reactive Lymphocytes 1+, Hypochromasia 2+, Poikilocytosis 1+, Anisocytosis 3+, Microcytosis 2+, Macrocytosis 1+, Acanthocytes (Spur) 1+ 07/17/21 16:45: Sodium 135 L, Potassium 3.5, Chloride 102, Carbon Dioxide 7.0 L*, Anion Gap 26 H, BUN 42 H, Creatinine 1.72 H, Estim Creat Clear Calc 39.39, Est GFR (MDRD) Af Amer 51 L, Est GFR (MDRD) Non-Af 42 L, BUN/Creatinine Ratio 24.4 H, Glucose 386 H, Calcium 7.6 L, Total Bilirubin 0.30, AST 49 H, ALT 61, Alkaline Phosphatase 112, Troponin I High Sens 88 H, Total Protein 4.6 L, Albumin 2.1 L, Globulin 2.5, Albumin/Globulin Ratio 0.8 L 07/17/21 16:45: Lactic Acid 18.6 H* 07/17/21 16:55: Blood Type O POSITIVE, Antibody Screen NEGATIVE, Crossmatch See Detail 07/17/21 16:55: Crossmatch See Detail 07/17/21 16:55: Blood Type O POSITIVE, Antibody Screen NEGATIVE 07/17/21 16:57: Blood Type O POSITIVE, Antibody Screen NEGATIVE, Crossmatch See Detail 07/17/21 16:59: Urine Color Yellow, Urine Clarity Clear, Urine pH 6.0, Ur Specific [place] 1.020, Urine Protein 15 H, Urine Glucose (UA) Normal, Urine Ketones 5 H, Urine Occult Blood 150 H, Urine Nitrite Negative, Urine Bilirubin Negative, Urine Urobilinogen Normal, Ur Leukocyte Esterase 100 H, Urine RBC 0-5 SEEN, Urine WBC 0-5 SEEN, Ur Squamous Epith Cells 0 SEEN, Urine Bacteria 0 SEEN, Urine Mucus 0 SEEN 07/17/21 21:32: Lactic Acid 9.4 H* 07/18/21 00:40: Hgb 10.6 L, Hct 31.6 L 07/18/21 00:40: POC Glucose 205 H 07/18/21 05:40: WBC 27.2 H, RBC 3.48 L, Hgb 9.4 L, Hct 27.2 L, MCV 78.2 L D, MCH 27.0, MCHC 34.6 D, RDW Std Deviation 50.6 H, RDW Coeff of Rose 18.0 H, Plt Count 285, MPV 9.1, Immature Gran % (Auto) 1.400 H, Neut % (Auto) 93.3 H, Lymph % (Auto) 2.0 L, [place] % (Auto) 3.2, Eos % (Auto) 0.0, Baso % (Auto) 0.1, Absolute Neuts (auto) 25.4 H, Absolute Lymphs (auto) 0.55 L, Nucleated RBC % 2.6, Hypochromasia 1+, Anisocytosis 1+ 07/18/21 05:40: Sodium 139, Potassium 2.8 L, Chloride 110 H, Carbon Dioxide 15.0 L, Anion Gap 14, BUN 55 H, Creatinine 2.60 H, Estim Creat Clear Calc 25.21, Est GFR (MDRD) Af Amer 31 L, Est GFR (MDRD) Non-Af 26 L, BUN/Creatinine Ratio 21.2 H, Glucose 169 H, Calcium 6.9 L, Total Bilirubin 1.10 H, AST 386 H, ALT 273 H, Alkaline Phosphatase 159 H, Total Protein 4.6 L, Albumin 2.1 L, Globulin 2.5, Albumin/Globulin Ratio 0.8 L 07/18/21 05:40: POC Glucose 188 H 07/18/21 05:40: APTT 35.5 07/18/21 05:40: PT 17.1 H, INR 1.5 Micro: Microbiology 07/17/21 19:20 Stool Stool Occult Blood (KISHA) - Final Occult Blood Positive ABG Data ABG results: ABG 07/17/21 07/18/21 17:21 00:27 Specimen Type ART ART Sample Site L Radial L Radial pH 7.40 7.39 Bicarbonate Actual 16.3 L 10.6 L Total CO2 17 11 Base Excess -9 L -14 L O2 Saturation 99 97 O2 % 100 30 ABG pCO2 26.5 L 17.5 L* ABG pO2 142 H 89 Antoni Test Positive N/A Respiration Rate 16 16 O2 Delivery Device Adult Vent Adult Vent Vent Mode AC AC Tidal Volume 400 400 POC PEEP 10 5 Crit Call To/Read Back Yes Blood Gas Notified Whom Dr Chamberlain Radiology Impression Chest X-Ray 07/17/21 17:00 IMPRESSION: Endotracheal and enteric tubes in satisfactory positions. Electronically Signed: Eli Juarez MD at 17:45 EST Tel , Service support , Chest X-Ray 07/17/21 23:10 IMPRESSION: Right internal jugular central venous catheter tip in the upper superior vena cava. Electronically Signed: Rufus Krause MD at 0:22 EST Tel , Service support , Charges/Coding Procedures Hospitalists Procedures: [id number] [facility] 1st Hr
[2021-07-18 10:14] LABS: Magnesium 2.2 mg/dL (1.6-2.6)
--- NOTE | 2021-07-18 10:15 | CASEMGMT ---
VERA CARROLL Face to Face with patient's , Allie, for initial transition planning/care coordination assessment as patient is currently on vent. VERA CARROLL introduced self and role at [facility]. willing to participate in assessment and is able to answer all questions appropriately. Care providers, pharmacy, and demographics verified. wishes to discharge home, will monitor for SNF vs HHC pending course of treatment and progress with therapy. states she has no further needs or concerns at this time. CM to follow for discharge planning needs that may arise. PCP: Tulio Garcia [place] Specialists: [facility]: [place], [facility] [place]: [place] [facility] Prescription Benefit: [place] Living Will/HPOA: none LNOK: Living Arrangements: Patient lives with in mobile home with 6 steps to enter. Patient was independent at home. Transportation: self/ DME/HHC: Patient has cane and nebulizer at home. No previous HHC or SNF. Disposition Plan: TBD by course of treatment and progress with therapy. Carmen ÁLVAREZ, RN, CM
[2021-07-18 10:50] LABS: Bedside Glucose 189 mg/dL (70-110)
[2021-07-18 14:02] LABS: Pathologist Review Reviewed
[2021-07-18 15:25] LABS: Bedside Glucose 192 mg/dL (70-110)
[2021-07-18 15:40] LABS: Hematocrit 22.5 % (40-54); Hemoglobin 7.6 g/dL (13.0-16.5)
[2021-07-18] MEDS: Epinephrine (1 mg/ml) 1 MG/ML VIAL (16:30)
[2021-07-18] MEDS: 0.9% Normal Saline (Pres. free 10 ML Vial (16:30)
--- NOTE | 2021-07-18 18:17 | OP.EGD_ITS ---
Patient Name: Duke Sawyer Procedure Date: 07/18/2021 3:57 PM Date of : 1950 Age: 71 Procedure: Upper GI endoscopy Indications: Hematemesis Providers: John Wolff DO Medicines: See the Anesthesia note for documentation of the administered medications Patient Profile: This is a 71 year old male. Refer to note in patient chart for documentation of history and physical. Patient has symptoms. Complications: No immediate complications. Procedure: Pre-Anesthesia Assessment: - Prior to the procedure, a History and Physical was performed, and patient medications and allergies were reviewed. The patient is competent. The risks and benefits of the procedure and the sedation options and risks were discussed with the patient. All questions were answered and informed consent was obtained. Patient identification and proposed procedure were verified by the physician in the pre-procedure area. Mental Status Examination: alert and oriented. Airway Examination: normal oropharyngeal airway and neck mobility. Respiratory Examination: clear to auscultation. CV Examination: normal. Prophylactic Antibiotics: The patient does not require prophylactic antibiotics. Prior Anticoagulants: The patient has taken no previous anticoagulant or antiplatelet agents. ASA Grade Assessment: II - A patient with mild systemic disease. After reviewing the risks and benefits, the patient was deemed in satisfactory condition to undergo the procedure. The anesthesia plan was to use moderate sedation / analgesia (conscious sedation). Immediately prior to administration of medications, the patient was re-assessed for adequacy to receive sedatives. The heart rate, respiratory rate, oxygen saturations, blood pressure, adequacy of pulmonary ventilation, and response to care were monitored throughout the procedure. The physical status of the patient was re-assessed after the procedure. After obtaining informed consent, the endoscope was passed under direct vision. Throughout the procedure, the patient's blood pressure, pulse, and oxygen saturations were monitored continuously. The Endoscope was introduced through the mouth, and advanced to the second part of duodenum. The upper GI endoscopy was accomplished without difficulty. The patient tolerated the procedure well. Moderate Sedation: Moderate (conscious) sedation was administered by the endoscopy nurse and supervised by the endoscopist. The following parameters were monitored: oxygen saturation, heart rate, blood pressure, and response to care. Total physician intraservice time was 15 minutes. Scope In: 4:08:34 PM Scope Out: 5:37:15 PM Total Procedure Duration Time 1 hour 28 minutes 41 seconds Findings: The examined esophagus was normal. Clotted blood was found in the entire examined stomach. Lavage of the area was performed using greater than 500 mL of sterile water, resulting in clearance with excellent visualization. Two spurting cratered gastric ulcers with a visible vessel were found in the gastric body. The largest lesion was 10 mm in largest dimension. Area was successfully injected with 9 mL of a 1:10,000 solution of epinephrine for hemostasis. Coagulation for hemostasis using argon beam at 0.4 liters/minute and 20 gottlieb was successful. Estimated blood loss was minimal. The second portion of the duodenum was normal. A nasobiliary drain was placed to perform irrigation. This was successfully performed. The endoscope was then withdrawn. After nasal transfer, the drain was then secured. Estimated blood loss was minimal. One non-obstructing oozing cratered gastric ulcer of significant severity with a visible vessel was found in the gastric body. The lesion was 10 mm in largest dimension. There is no evidence of perforation. Coagulation for hemostasis using argon plasma at 0.3 liters/minute and 20 gottlieb was successful. A 14 Fr orogastric tube was placed through the nares into the esophagus. Under endoscopic guidance, the tube was advanced into the stomach. Placement was confirmed by scope visualization. Estimated blood loss was minimal. Impression: - Normal esophagus. - Clotted blood in the entire stomach. - Spurting gastric ulcers with a visible vessel. Injected. Treated with argon beam coagulation. - Normal second portion of the duodenum. Drain placed. - Non-obstructing oozing gastric ulcer with a visible vessel. NSAID induced etiology. There is no evidence of perforation. Treated with argon plasma coagulation (APC). - Feeding tube placement was successfully performed. - No specimens collected. Recommendation: - Return patient to ICU for ongoing care. - Resume previous diet. - Continue present medications. Procedure Code(s): --- Professional --- 56629, 59, Esophagogastroduodenoscopy, flexible, transoral; with control of bleeding, any method 61656, Esophagogastroduodenoscopy, flexible, transoral; with insertion of intraluminal tube or catheter 98995, 59, Moderate sedation services provided by the same physician or other qualified health transitional care manager performing the diagnostic or therapeutic service that the sedation supports, requiring the presence of an independent trained observer to assist in the monitoring of the patient's level of consciousness and physiological status; initial 15 minutes of intraservice time, patient age 5 years or older CPT copyright 2017 [employer]. All rights reserved. The codes documented in this report are preliminary and upon certified professional coder review may be revised to meet current compliance requirements. John Wolff DO 07/18/2021 6:17:20 PM This report has been signed electronically. Number of Addenda: 1 Note Initiated On: 07/18/2021 3:57 PM Addendum Number: 1 Addendum Date: 03/23/2022 6:03:36 AM MAC was used instead of moderate sedation for the patient. John Wolff DO 03/23/2022 6:03:40 AM This report has been signed electronically.
--- NOTE | 2021-07-18 18:18 | OP.CCLET_ITS ---
03/23/2022 [facility] Re : Upper GI endoscopy procedure for [facility] This procedure was performed on Sunday, July 18, 2021. My impressions and recommendations are as follows: Impressions : - Normal esophagus. - Clotted blood in the entire stomach. - Spurting gastric ulcers with a visible vessel. Injected. Treated with argon beam coagulation. - Normal second portion of the duodenum. Drain placed. - Non-obstructing oozing gastric ulcer with a visible vessel. NSAID induced etiology. There is no evidence of perforation. Treated with argon plasma coagulation (APC). - Feeding tube placement was successfully performed. - No specimens collected. Recommendations : - Return patient to ICU for ongoing care. - Resume previous diet. - Continue present medications. My findings are described in the full procedure note, which is enclosed. If I can be of further assistance, please feel free to contact me at . Sincerely, John Friend, 07/18/2021 6:17:20 PM This report has been signed electronically.
[2021-07-18 18:21] LABS: Bedside Glucose 219 mg/dL (70-110)
--- NOTE | 2021-07-18 19:53 | NURSING ---
1605: Dr. Wolff and Endo team at bedside to do EGD. Consent was signed and timeout done. See Endo charting. Patient tolerated procedure well, however Fi02 turned up to 45% when saturations dropped to 85%. All other vitals stable.
[2021-07-18 22:55] LABS: Bedside Glucose 153 mg/dL (70-110)
[2021-07-19] VITALS (34 sets, daily range): BP systolic 93–158; BP diastolic 57–102; PULSE 90–135; RESP 24–36; TEMP 37.2–37.8; O2SAT 90–128
[2021-07-19] MEDS: 0.9% Normal Saline 1,000 ML 100 ML IV
[2021-07-19 00:16] LABS: Absolute Neutrophil Count 18.2 X10^3/uL (2.0-7.7); Basophil# 0.03 X10^3/uL; Basophil% 0.2 % (0-1); Hematocrit 26.8 % (40-54); Hemoglobin 9.2 g/dL (13.0-16.5); Lymphocyte % 2.6 % (19-41); Mean Corp Hgb Conc 34.3 g/dL (32-36); Mean Corpuscular Hgb 27.5 pg (27.0-32.0); Mean Corpuscular Volume 80.2 fL (80-94); Monocyte# 0.58 X10^3/uL; NRBC Flagged by Analyzer 0.6 % (0-5); Neutrophil # 18.16 X10^3/uL (2.7-7.7); Neutrophil % 93.8 % (47-70); POSITIVE DIFFERENTIAL YES; POSITIVE MORPHOLOGY YES; Platelet Count 224 K/mm3 (150-450); RBC Distribution Width CV 18.3 % (11.6-14.6); RBC Distribution Width SD 53.3 fl (35.1-43.9); Red Blood Count 3.34 M/mm3 (4.6-6.2); White Blood Count 19.4 K/mm3 (4.4-11.0)
[2021-07-19 00:18] LABS: Differential Indicated SCAN CRITERIA MET
[2021-07-19 01:30] LABS: Differential Comment SCANNED
[2021-07-19 01:31] LABS: Burr Cells RARE; Hypochromasia RARE
[2021-07-19 05:05] LABS: Absolute Neutrophil Count 17.8 X10^3/uL (2.0-7.7); Basophil# 0.03 X10^3/uL; Basophil% 0.2 % (0-1); Eosinophil# 0.24 X10^3/uL; Eosinophils% 1.2 % (0-5); Hematocrit 28.1 % (40-54); Hemoglobin 9.4 g/dL (13.0-16.5); Lymphocyte % 2.6 % (19-41); Mean Corp Hgb Conc 33.5 g/dL (32-36); Mean Corpuscular Hgb 26.9 pg (27.0-32.0); Mean Corpuscular Volume 80.5 fL (80-94); Mean Platelet Vol. 9.2 fl (6.2-12.0); Monocyte# 0.62 X10^3/uL; Monocyte% 3.2 % (0-10); NRBC Flagged by Analyzer 0.4 % (0-5); Neutrophil # 17.78 X10^3/uL (2.7-7.7); Neutrophil % 92.4 % (47-70); POSITIVE DIFFERENTIAL YES; POSITIVE MORPHOLOGY YES; Platelet Count 207 K/mm3 (150-450); RBC Distribution Width CV 18.1 % (11.6-14.6); RBC Distribution Width SD 52.3 fl (35.1-43.9); Red Blood Count 3.49 M/mm3 (4.6-6.2); White Blood Count 19.2 K/mm3 (4.4-11.0)
[2021-07-19 05:09] LABS: Differential Indicated SCAN CRITERIA MET
[2021-07-19 05:35] LABS: Bedside Glucose 139 mg/dL (70-110)
[2021-07-19 05:38] LABS: Differential Comment SCANNED
[2021-07-19 05:39] LABS: ALB/GLOB Ratio 0.6 RATIO (0.9-2.4); AST(SGOT) 140 U/L (15-37); Alanine Aminotransfer ALT/SGPT 169 U/L (16-61); Alkaline Phosphatase 146 U/L (45-117); Anion Gap 12 (5-15); BUN 70 mg/dL (7-18); BUN/Creat Ratio 15.2 RATIO (10-20); Calcium,Total 6.7 mg/dL (8.5-10.1); Chloride 112 mmol/L (98-107); Creatinine, Serum 4.62 mg/dL (0.70-1.30); EST Glomerular Filtration Rate 13 mL/min (>60); Est Glom Filt Rate - Afr Amer 16 mL/min (>60); Estimated Creatinine Clearance 14.19 ml/min; Globulin 3.1 g/dL (2.2-4.2); Glucose 139 mg/dL (74-106); Magnesium 2.1 mg/dL (1.6-2.6); Potassium 3.4 mmol/L (3.5-5.1); Protein, Total 5.1 g/dL (6.4-8.2); Sodium Level 139 mmol/L (136-145)
[2021-07-19] MEDS: CHLORHEXIDINE GLUC 2% CLOTH 1 EACH TOWELETTE TOPICAL (05:45)
[2021-07-19] MEDS: Ipratropium/Albuterol Sulfate 3 ML AMPUL.NEB INHALATION ×5 (07:03→22:16)
--- NOTE | 2021-07-19 07:47 | PCM.PN.HOSP ---
Subjective Subjective Follow-up on acute hemorrhagic shock: Patient was seen and examined. Patient's NG tube has greenish fluid. His FMS has dark stools. Patient remains tachycardic Objective Data Objective Data Vital Signs: Vital Signs Temp Pulse Resp BP Pulse Ox 98.9 F 118 H 29 H 146/92 H 95 07/19/21 04:00 07/19/21 07:12 07/19/21 07:12 07/19/21 07:12 07/19/21 07:12 Oxygen Delivery Method Mechanical Ventilator Weight: 80.6 kg Body Mass Index (BMI) 25.2 Intake & Output: Intake and Output for Last 24 Hours 07/17/21 07/18/21 07/19/21 23:59 23:59 23:59 Intake Total 2100.41 / 2192.86 4891.34 / 4913.04 904.60 / 904.60 Output Total 1350 / 1550 600 / 600 Balance 2100.41 / 2192.86 3541.34 / 3363.04 304.60 / 304.60 Medical Nutrition Assessment Dietitian: Malnutrition Criteria Met Start: 07/18/21 10:48 Freq: Status: Active Protocol: Document 07/18/21 10:48 SLA (Rec: 07/18/21 10:48 SLA [id number]) Nutrition Malnutrition Evidence of Malnutrition Exists Yes Malnutrition (severe): Acute Illness/Injury Evidenced By Suboptimal Energy Intake ( Severe),Weight Loss (Severe) Clinical Problem Acute Disease or Injury Related Malnutrition Etiology related to acute illness with pt po intake inadequate to meet est nutritional needs Signs/Symptoms as evidenced by <50% po intake x > 1 month and 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 If pt to remain NPO > 3-5 days , rec enteral nutrition support - will provide rec as indicated. Lab / Micro Data Result Diagrams: 07/19/21 04:45 07/19/21 04:45 Labs: Laboratory Results - last 24 hr 07/17/21 16:35: Crossmatch See Detail 07/17/21 16:45: Diff Path Review Reviewed 07/17/21 16:55: Crossmatch See Detail 07/18/21 05:40: Magnesium 2.2 07/18/21 10:29: POC Glucose 189 H 07/18/21 14:34: POC Glucose 192 H 07/18/21 15:15: Hgb 7.6 L, Hct 22.5 L 07/18/21 18:14: POC Glucose 219 H 07/18/21 22:25: POC Glucose 153 H 07/19/21 00:05: WBC 19.4 H, RBC 3.34 L, Hgb 9.2 L, Hct 26.8 L, MCV 80.2, MCH 27.5, MCHC 34.3, RDW Std Deviation 53.3 H, RDW Coeff of Rose 18.3 H, Plt Count 224, MPV 9.0, Immature Gran % (Auto) 0.400, Neut % (Auto) 93.8 H, Lymph % (Auto) 2.6 L, Mcminn % (Auto) 3.0, Eos % (Auto) 0.0, Baso % (Auto) 0.2, Absolute Neuts (auto) 18.2 H, Absolute Lymphs (auto) 0.50 L, Nucleated RBC % 0.6, Differential Comment SCANNED, Hypochromasia RARE, Marilu Cells RARE 07/19/21 03:26: POC Glucose 139 H 07/19/21 04:45: WBC 19.2 H, RBC 3.49 L, Hgb 9.4 L, Hct 28.1 L, MCV 80.5, MCH 26.9 L, MCHC 33.5, RDW Std Deviation 52.3 H, RDW Coeff of Rose 18.1 H, Plt Count 207, MPV 9.2, Immature Gran % (Auto) 0.400, Neut % (Auto) 92.4 H, Lymph % (Auto) 2.6 L, Mcminn % (Auto) 3.2, Eos % (Auto) 1.2, Baso % (Auto) 0.2, Absolute Neuts (auto) 17.8 H, Absolute Lymphs (auto) 0.50 L, Nucleated RBC % 0.4, Differential Comment SCANNED 07/19/21 04:45: Sodium 139, Potassium 3.4 L, Chloride 112 H, Carbon Dioxide 15.0 L, Anion Gap 12, BUN 70 H, Creatinine 4.62 H, Estim Creat Clear Calc 14.19, Est GFR (MDRD) Af Amer 16 L, Est GFR (MDRD) Non-Af 13 L, BUN/Creatinine Ratio 15.2, Glucose 139 H, Calcium 6.7 L, Magnesium 2.1, Total Bilirubin 1.00, AST 140 H, ALT 169 H, Alkaline Phosphatase 146 H, Total Protein 5.1 L, Albumin 2.0 L, Globulin 3.1, Albumin/Globulin Ratio 0.6 L Micro: Microbiology 07/18/21 00:35 Transtracheal Aspirate Gram Stain - Final 07/17/21 19:20 Stool Stool Occult Blood (KISHA) - Final Occult Blood Positive Physical Exam Narrative Physical exam: General: Sedated, intubated, on mechanical ventilator, pale, not jaundiced HEENT: Atraumatic Oral: Moist Mucosa Neck: Supple Lungs: Diminished to auscultation Cardiovascular: HS I+II, regular, no murmurs Abdomen: Bowel Sounds Present, Soft, Non Tender Extremities: No edema Assessment & Plan Assessment/Plan (1) Hemorrhagic shock: (2) GI bleed: QUALIFIERS: GI bleed type/associated pathology: gastrointestinal hemorrhage with hematemesis Qualified Code(s): K92.0 - Hematemesis (3) Severe anemia: (4) Cardiopulmonary arrest: PLAN: 1. Acute severe anemia secondary to acute GI bleed Patient presented with hemoglobin of 4.1, status post 6 units packed RBC. Hemoglobin remains 9.4, will continue to monitor 2. Acute upper GI bleed secondary to spurting gastric ulcers with visible vessel, status post argon beam coagulation EGD done on 07/18/21; showed above GI following, continue on IV PPI 3. Acute respiratory failure status post cardiopulmonary arrest, status post intubation, Patient intubated for primary airway protection Likely etiology for cardiopulmonary arrest is #1 4. Hypokalemia, improved, potassium was 3.4 Replace, recheck in a.m. 5. LICHA, prerenal, secondary to #2, worsening Creatinine is currently 4.62, Consult nephrology 6. Anion gap metabolic acidosis secondary to lactic acidosis, improved Bicarb is 15, anion gap is 12 7. Acute hemorrhagic shock secondary to #2, patient remains on Levophed 8. Elevated transaminases secondary to hypotension, improved Continue to trend 9. Lactic acidosis, secondary to #3, admitting lactic acid 9.4 Will trend 10. Recent CAD status post stent to RCA Hold off aspirin and Plavix in the light of current acute GI bleed 11. DVT PPx- SCDs Charges/Coding Visit Charges Inpatient E&M: 51631 [facility] Hosp L3
[2021-07-19] MEDS: Chlorhexidine 15 ML PO ×2 (10:14→22:03)
--- NOTE | 2021-07-19 10:20 | PCM.PN.INT ---
Assessment & Plan Assessment/Plan (1) Hemorrhagic shock: (2) Severe anemia: (3) Cardiopulmonary arrest: (4) Respiratory failure: (5) Acute renal failure: PLAN: RECOMMENDATIONS: 1. Monitor off sedation if possible 2. Transition to twice daily PPI 3. Initiation of tube feeds per GI recommendations 4. Continue mechanical ventilation until stability of hemodynamics 5. Confirmed CODE STATUS to DNR comfort care arrest without intubation IMPRESSIONS: 1. PEA arrest secondary to hemorrhagic shock secondary to probable GI bleed Prognosis critical at this time secondary to delayed presentation. Patient has had a significant loss of blood over the course of 2 weeks by clinical history. Patient has received 8 units of packed red blood cells, 1 unit of platelets and 2 units of FFP thus far in the hospitalization. GI has been consulted and has completed an EGD showing a lesion with high likelihood of rebleeding. We will recheck H&H this evening. Transfuse to keep hemoglobin greater than 8. Some concern for an element of hypoxic encephalopathy following PEA arrest. We will continue to hold sedation if possible. 2. Acute respiratory failure secondary to problem #1 Patient on minimal vent settings at this time. Patient does not have any acute infiltrates to suggest aspiration. However, patient will remain intubated pending stabilization of hemodynamic status. Patient does have a history of COPD, but does not appear to be in exacerbation at this time. 3. Acute kidney injury/early shock liver/anion gap metabolic acidosis Patient with significant worsening in liver enzymes and renal function. Clinical suspicion for ATN secondary to prerenal etiology. Aggressive volume resuscitation. Continue to monitor urine output. Patient continues to have urine output. Will monitor for another 24 hours. If not improving, may need to discuss with about willingness to proceed with hemodialysis. 4. Diabetes mellitus/coronary artery disease/advanced age/delayed presentation Complicates care, management, recovery and prognosis. Patient currently n.p.o. secondary to problem #1. Sliding scale insulin would likely be sufficient at this time. Dual antiplatelet therapy will be held secondary to problem #1. Will attempt to obtain home medication regimen, but no antihypertensives would be indicated. TIME: 35 minutes critical care time spent addressing patient's PEA arrest, hemorrhagic shock, acute respiratory failure, acute kidney injury, review of all data and collaboration with care team Subjective Subjective Patient did okay from a hemodynamics to one-point overnight. Levophed was able to be discontinued. Patient has received a total of 8 units of packed red blood cells, 2 units of FFP and 1 unit of platelets during this hospitalization. Patient has had sedation discontinued overnight with little to no response. Patient does withdrawal to stimulus and has a cough. Patient is not following commands. Objective Data Objective Data ConsultEGD results were personally reviewed. Vital Signs: Vital Signs Temp Pulse Resp BP Pulse Ox 37.2 C 122 H 32 H 150/91 H 95 07/19/21 04:00 07/19/21 08:00 07/19/21 08:00 07/19/21 08:00 07/19/21 08:00 Oxygen Delivery Method Mechanical Ventilator Weight: 80.6 kg Body Mass Index (BMI) 25.2 Intake & Output: Intake and Output for Last 24 Hours 07/17/21 07/18/21 07/19/21 23:59 23:59 23:59 Intake Total 2100.41 / 2192.86 4891.34 / 4913.04 934.60 / 934.60 Output Total 1350 / 1550 700 / 700 Balance 2100.41 / 2192.86 3541.34 / 3363.04 234.60 / 234.60 Medical Nutrition Assessment Dietitian: Malnutrition Criteria Met Start: 07/18/21 10:48 Freq: Status: Active Protocol: Document 07/18/21 10:48 SLA (Rec: 07/18/21 10:48 SLA [id number]) Nutrition Malnutrition Evidence of Malnutrition Exists Yes Malnutrition (severe): Acute Illness/Injury Evidenced By Suboptimal Energy Intake ( Severe),Weight Loss (Severe) Clinical Problem Acute Disease or Injury Related Malnutrition Etiology related to acute illness with pt po intake inadequate to meet est nutritional needs Signs/Symptoms as evidenced by <50% po intake x > 1 month and 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 If pt to remain NPO > 3-5 days , rec enteral nutrition support - will provide rec as indicated. Lab / Micro Data Result Diagrams: 07/19/21 04:45 07/19/21 04:45 Labs: Laboratory Results - last 24 hr 07/17/21 16:35: Crossmatch See Detail 07/17/21 16:45: Diff Path Review Reviewed 07/18/21 10:29: POC Glucose 189 H 07/18/21 14:34: POC Glucose 192 H 07/18/21 15:15: Hgb 7.6 L, Hct 22.5 L 07/18/21 18:14: POC Glucose 219 H 07/18/21 22:25: POC Glucose 153 H 07/19/21 00:05: WBC 19.4 H, RBC 3.34 L, Hgb 9.2 L, Hct 26.8 L, MCV 80.2, MCH 27.5, MCHC 34.3, RDW Std Deviation 53.3 H, RDW Coeff of Rose 18.3 H, Plt Count 224, MPV 9.0, Immature Gran % (Auto) 0.400, Neut % (Auto) 93.8 H, Lymph % (Auto) 2.6 L, Hand % (Auto) 3.0, Eos % (Auto) 0.0, Baso % (Auto) 0.2, Absolute Neuts (auto) 18.2 H, Absolute Lymphs (auto) 0.50 L, Nucleated RBC % 0.6, Differential Comment SCANNED, Hypochromasia RARE, Marilu Cells RARE 07/19/21 03:26: POC Glucose 139 H 07/19/21 04:45: WBC 19.2 H, RBC 3.49 L, Hgb 9.4 L, Hct 28.1 L, MCV 80.5, MCH 26.9 L, MCHC 33.5, RDW Std Deviation 52.3 H, RDW Coeff of Rose 18.1 H, Plt Count 207, MPV 9.2, Immature Gran % (Auto) 0.400, Neut % (Auto) 92.4 H, Lymph % (Auto) 2.6 L, Hand % (Auto) 3.2, Eos % (Auto) 1.2, Baso % (Auto) 0.2, Absolute Neuts (auto) 17.8 H, Absolute Lymphs (auto) 0.50 L, Nucleated RBC % 0.4, Differential Comment SCANNED 07/19/21 04:45: Sodium 139, Potassium 3.4 L, Chloride 112 H, Carbon Dioxide 15.0 L, Anion Gap 12, BUN 70 H, Creatinine 4.62 H, Estim Creat Clear Calc 14.19, Est GFR (MDRD) Af Amer 16 L, Est GFR (MDRD) Non-Af 13 L, BUN/Creatinine Ratio 15.2, Glucose 139 H, Calcium 6.7 L, Magnesium 2.1, Total Bilirubin 1.00, AST 140 H, ALT 169 H, Alkaline Phosphatase 146 H, Total Protein 5.1 L, Albumin 2.0 L, Globulin 3.1, Albumin/Globulin Ratio 0.6 L Micro: Microbiology 07/18/21 00:35 Transtracheal Aspirate Gram Stain - Final 07/18/21 00:35 Transtracheal Aspirate Respiratory Culture - Preliminary Staphylococcus aureus 07/17/21 19:20 Stool Stool Occult Blood (KISHA) - Final Occult Blood Positive Physical Exam Const Constitutional Narrative: Not following commands General Appearance: appears older than stated age, intubated and patient mechanically ventilated Orientation / Consciousness: lethargic HEENT Head and Scalp: normal to inspection Mouth: oral and palatal mucosa normal, endotracheal tube in place and OG tube in place Neck General: normal visual inspection Lymph Lymphatic: no lymphadenopathy noted Chest Chest: abnormal inspection of the chest increased A-P diameter and symmetrical chest wall rise; Negative for crepitus Resp Auscultation: diminished lung sounds; Negative for rales, rhonchi or wheezes Percussion: hyperresonance Cardio Rate: tachycardic Rhythm: regular rhythm Heart Sounds: Negative for gallop, murmur or rub GI non-distended Percussion: normal to percussion Rectal Exam: deferred Extremity normal to inspection General Extremity: Negative for clubbing, cyanosis or edema Skin Skin Narrative: Scattered bruising noted Neuro Sensorium / Orientation: lethargic Psych Appearance: intubated Charges/Coding Procedures [facility] [id number]
[2021-07-19 10:21] LABS: Bedside Glucose 148 mg/dL (70-110)
--- NOTE | 2021-07-19 10:34 | CON.PCM.RE_ITS ---
Assessment & Plan Assessment/Plan (1) LICHA (acute kidney injury): PLAN: Baseline normal renal function. Serum creatinine was 0. 9 3 to 1.10 mg/dL in October 2020. LICHA is likely secondary to ischemic ATN related to hemorrhagic shock. UA was reviewed and does not suggest intrinsic LICHA such as glomerulonephritis or AIN. Low suspicion for other causes of LICHA at this time. Agree with current supportive care. Keep MAP above 65 mmHg. The patient is not hyperkalemic. His metabolic acidosis is improving. There is no signs of severe volume overload, and he is making around 100 mL of urine per hour. Therefore, there is no urgent need for kidney replacement therapy today. Moreover, it appears that the patient's may not want more aggressive medical care than what he is getting currently. We will discuss goals of care with critical care and hospital medicine services. (2) Hypokalemia: PLAN: I suspect that this is from GI loss. The patient has increased GI output through FMS. Magnesium is acceptable. Potassium has been replaced and is now reasonable at 3.4 mmol/L. We will follow potassium level. (3) Metabolic acidosis: PLAN: The patient had serum bicarbonate as low as 7 mmol/L on 07/17/2021. Lactate was as high as 18.6 mg/dL. This was likely due to poor perfusion because of hemorrhagic shock. There is also likely some contribution from LICHA to acidosis as well. There is no need for kidney replacement therapy since serum bicarbonate level is improving. We will monitor. (4) Hemorrhagic shock: PLAN: Due to upper GI bleed. Clinically improving. He is off of IV pressor. Coordination of complex medical care as per plush finisher. (5) GI bleed: QUALIFIERS: GI bleed type/associated pathology: gastrointestinal hemorrhage with hematemesis Qualified Code(s): K92.0 - Hematemesis PLAN: The patient has bleeding gastric ulcer that was treated by GI. Following hemoglobin. (6) Cardiopulmonary arrest: PLAN: The patient had a witnessed PEA arrest in route to the hospital. He was intubated and underwent ACLS in the ambulance. Unclear how long resuscitation was before ROSC. (7) Acute hypoxemic respiratory failure: PLAN: The patient is ventilator dependent. Management on ventilator as per plush finisher. HPI Consult Data Date of Consult: 07/19/21 HPI Narrative Reason for Consultation: LICHA HPI Narrative: LAVERNE SAWYER, is a 71-year-old man with past history of CAD status post PCI in October 2020, COPD, type 2 diabetes mellitus, hypertension, and hyperlipidemia. The patient presented to the hospital on 07/17/2021 with weakness, nausea, and melena. The patient was found to have a hemoglobin of 4.1 g/dL on presentation. The patient was found to have a bleeding gastric ulcer on endoscopy. This was treated by GI with injection and photocoagulation. The patient also had a PEA arrest in route to the hospital. He is now intubated and sedated. History cannot be obtained directly from the patient. The chart was extensively reviewed and case reviewed with bedside RN and plush finisher. Nephrology is asked to see the patient because of LICHA. Serum creatinine has increased to 4.62 mg/dL today. On presentation, serum creatinine was 2.07 mg/dL. However, baseline renal function has been normal. Serum creatinine was 0.93 to 1.10 mg deciliter in October 2020. Of note, the patient had been on lisinopril prior to admission. [facility] Medical History Acute renal failure Agent orange exposure Atherosclerotic heart disease of [place] coronary artery without angina pectoris COPD (chronic obstructive pulmonary disease) COPD with acute exacerbation Hyperglycemia Leukocytosis Presence of stent in coronary artery (~10/31/20) STEMI (ST elevation myocardial infarction) Home Medications Centrum Men 1 tab PO DAILY 06/14/18 [History Last Taken 10/30/20] albuterol sulfate [Ventolin HFA] 1 - 2 puff INHALATION TID PRN 06/14/18 [History Last Taken 10/30/20] Vitamin C 10/31/20 [History Last Taken Unknown] fluticasone propion-salmeterol 1 each IH BID 10/31/20 [History Last Taken 10/30/20] aspirin 81 mg PO DAILY@0800 tab.chew 11/02/20 [Rx Last Taken Unknown] atorvastatin 40 mg PO QHS #30 tablet 11/02/20 [Rx Last Taken Unknown] lisinopril 5 mg PO DAILY #30 tablet 11/02/20 [Rx Last Taken Unknown] metoprolol tartrate 25 mg PO BID #60 tablet 11/02/20 [Rx Last Taken Unknown] ticagrelor 90 mg PO BID #60 tablet 11/02/20 [Rx Last Taken Unknown] Allergy/AdvReac Type Severity Reaction Status Date / Time No Known Allergies Allergy Verified 07/17/21 16:29 Family History Other Diabetes Heart disease Surgical History Presence of coronary angioplasty implant and graft (~10/31/20) Social History Smoking Status: Former smoker ROS ROS Narrative The patient is intubated and sedated. Cannot do ROS. Physical Exam Narrative General: Sedated on ventilator. HEENT: Normocephalic, atraumatic. Mucous membrane is moist. The patient is intubated. PERRLA. Neck: Supple, no JVD. Heart: Normal S1, S2. No rubs, murmurs or gallops. Lungs: Rhonchi bilaterally (right greater than left). Abdomen: Normal bowel sound, soft, nontender. No guarding or rebound. Extremity: No clubbing, cyanosis or edema. Musculoskeletal: Full passive range of motion. No joint swelling. Skin: Warm and dry. No rash. Psychiatric: The patient is sedated, cannot assess. Medical Records Data Medical Nutrition Assessment Dietitian: Malnutrition Criteria Met Start: 07/18/21 10:48 Freq: Status: Active Protocol: Document 07/18/21 10:48 [facility] (Rec: 07/18/21 10:48 [facility] [id number]) Nutrition Malnutrition Evidence of Malnutrition Exists Yes Malnutrition (severe): Acute Illness/Injury Evidenced By Suboptimal Energy Intake ( Severe),Weight Loss (Severe) Clinical Problem Acute Disease or Injury Related Malnutrition Etiology related to acute illness with pt po intake inadequate to meet est nutritional needs Signs/Symptoms as evidenced by <50% po intake x > 1 month and 16.8% wt loss x 4 months 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 If pt to remain NPO > 3-5 days , rec enteral nutrition support - will provide rec as indicated. Lab / Micro Data Result Diagrams: 07/19/21 04:45 07/19/21 04:45 Labs: Laboratory Results - last 24 hr 07/17/21 16:35: Crossmatch See Detail 07/17/21 16:45: Diff Path Review Reviewed 07/18/21 10:29: POC Glucose 189 H 07/18/21 14:34: POC Glucose 192 H 07/18/21 15:15: Hgb 7.6 L, Hct 22.5 L 07/18/21 18:14: POC Glucose 219 H 07/18/21 22:25: POC Glucose 153 H 07/19/21 00:05: WBC 19.4 H, RBC 3.34 L, Hgb 9.2 L, Hct 26.8 L, MCV 80.2, MCH 27.5, MCHC 34.3, RDW Std Deviation 53.3 H, RDW Coeff of Rose 18.3 H, Plt Count 224, MPV 9.0, Immature Gran % (Auto) 0.400, Neut % (Auto) 93.8 H, Lymph % (Auto) 2.6 L, [place] % (Auto) 3.0, Eos % (Auto) 0.0, Baso % (Auto) 0.2, Absolute Neuts (auto) 18.2 H, Absolute Lymphs (auto) 0.50 L, Nucleated RBC % 0.6, Differential Comment SCANNED, Hypochromasia RARE, [place] Cells RARE 07/19/21 03:26: POC Glucose 139 H 07/19/21 04:45: WBC 19.2 H, RBC 3.49 L, Hgb 9.4 L, Hct 28.1 L, MCV 80.5, MCH 26.9 L, MCHC 33.5, RDW Std Deviation 52.3 H, RDW Coeff of Rose 18.1 H, Plt Count 207, MPV 9.2, Immature Gran % (Auto) 0.400, Neut % (Auto) 92.4 H, Lymph % (Auto) 2.6 L, [place] % (Auto) 3.2, Eos % (Auto) 1.2, Baso % (Auto) 0.2, Absolute Neuts (auto) 17.8 H, Absolute Lymphs (auto) 0.50 L, Nucleated RBC % 0.4, Differential Comment SCANNED 07/19/21 04:45: Sodium 139, Potassium 3.4 L, Chloride 112 H, Carbon Dioxide 15.0 L, Anion Gap 12, BUN 70 H, Creatinine 4.62 H, Estim Creat Clear Calc 14.19, Est GFR (MDRD) Af Amer 16 L, Est GFR (MDRD) Non-Af 13 L, BUN/Creatinine Ratio 15.2, Glucose 139 H, Calcium 6.7 L, Magnesium 2.1, Total Bilirubin 1.00, AST 140 H, ALT 169 H, Alkaline Phosphatase 146 H, Total Protein 5.1 L, Albumin 2.0 L, Globulin 3.1, Albumin/Globulin Ratio 0.6 L 07/19/21 10:13: POC Glucose 148 H Micro: Microbiology 07/18/21 00:35 Transtracheal Aspirate Gram Stain - Final 07/18/21 00:35 Transtracheal Aspirate Respiratory Culture - Preliminary Staphylococcus aureus
[2021-07-19] MEDS: Potassium Chloride 10mEq/100mL 10 MEQ/100 ML IV.SOLN. 100 MEQ IV BOLUS ×2 (11:08→12:35)
[2021-07-19 13:46] LABS: Bedside Glucose 144 mg/dL (70-110)
--- NOTE | 2021-07-19 13:53 | PCM.RX.CS ---
Consult Pharmacy has been consulted to manage selected antiobiotic: Vancomycin Type of Consult: New start Labs: Sodium 139 mmol/L (136-145) 07/19/21 04:45 Potassium 3.4 mmol/L (3.5-5.1) L 07/19/21 04:45 Chloride 112 mmol/L (98-107) H 07/19/21 04:45 Carbon Dioxide 15.0 mmol/L (21.0-32.0) L 07/19/21 04:45 Anion Gap 12 (5-15) 07/19/21 04:45 BUN 70 mg/dL (7-18) H 07/19/21 04:45 Creatinine 4.62 mg/dL (0.70-1.30) H 07/19/21 04:45 Est GFR (MDRD) Af Amer 16 mL/min (>60) L 07/19/21 04:45 Est GFR (MDRD) Non-Af 13 mL/min (>60) L 07/19/21 04:45 BUN/Creatinine Ratio 15.2 RATIO (10-20) 07/19/21 04:45 Glucose 139 mg/dL (74-106) H 07/19/21 04:45 Microbiology: Microbiology 07/18/21 00:35 Transtracheal Aspirate Gram Stain - Final 07/18/21 00:35 Transtracheal Aspirate Respiratory Culture - Preliminary Staphylococcus aureus 07/17/21 19:20 Stool Stool Occult Blood (KISHA) - Final Occult Blood Positive Goal Trough: 15-20 mcg/mL Pharmacy Plan for Drug Dosing: NEW START IV VANCOMYCIN Consulting Physician: Dr. Moses Johns Indication: Goal Trough: 15-20 SrCr: 4.62 CrCl: <20 Comments: pt to renally dosed Vancomcyin Dose: pt received a 2000mg x1 dose on 07/19/21 at 1334 Pending Level: 07/21/21 at 0600 Pharmacy Service will continue to monitor and adjust dosing as required. Follow-Up Labs: Trough Vancomycin - 07/21/21 at 0600
[2021-07-19 17:46] LABS: Bedside Glucose 143 mg/dL (70-110)
[2021-07-19] MEDS: TITRATION PARAMETER CHANGE 1 EACH IV (19:15)
[2021-07-19] MEDS: Propofol 10MG/Ml 1,000 MG/100 ML Bottle 4.6 MG CONT INF (20:00)
[2021-07-19] MEDS: Insulin Lispro 100 UNIT/ML INSULN.PEN SC (22:02)
[2021-07-19] MEDS: 0.9% Saline Lock 10 ML Syringe IV (22:19)
[2021-07-19 22:20] LABS: Bedside Glucose 179 mg/dL (70-110)
[2021-07-20] VITALS (25 sets, daily range): BP systolic 89–152; BP diastolic 50–84; PULSE 104–132; RESP 22–34; TEMP 37.1–37.9; O2SAT 84–98
--- NOTE | 2021-07-20 00:53 | NURSING ---
07/19/21 @ 2019Esther Bolden from [facility] called for patient status update. If patient has change in status with absence of brain stem reflexes,neuro insult, brain testing or termination of care [facility] prior to termination of life support.
[2021-07-20] MEDS: Insulin Lispro 100 UNIT/ML INSULN.PEN SC ×2 (02:38→06:36)
[2021-07-20 02:46] LABS: Bedside Glucose 168 mg/dL (70-110)
[2021-07-20] MEDS: Ipratropium/Albuterol Sulfate 3 ML AMPUL.NEB INHALATION ×3 (04:07→11:35)
[2021-07-20] MEDS: CHLORHEXIDINE GLUC 2% CLOTH 1 EACH TOWELETTE TOPICAL (05:30)
[2021-07-20 05:34] LABS: Absolute Lymphocyte Count 0.23 X10^3/uL (0.83-4.51); Absolute Neutrophil Count 11.5 X10^3/uL (2.0-7.7); Basophil# 0.02 X10^3/uL; Basophil% 0.2 % (0-1); Hematocrit 26.2 % (40-54); Lymphocyte # 0.23 X10^3/ul (0.83-4.51); Lymphocyte % 1.9 % (19-41); Mean Corp Hgb Conc 34.4 g/dL (32-36); Mean Corpuscular Hgb 27.7 pg (27.0-32.0); Mean Corpuscular Volume 80.6 fL (80-94); Mean Platelet Vol. 9.4 fl (6.2-12.0); Monocyte% 4.1 % (0-10); NRBC Flagged by Analyzer 0.2 % (0-5); Neutrophil # 11.46 X10^3/uL (2.7-7.7); Neutrophil % 93.5 % (47-70); POSITIVE DIFFERENTIAL YES; POSITIVE MORPHOLOGY YES; Platelet Count 180 K/mm3 (150-450); RBC Distribution Width CV 18.6 % (11.6-14.6); RBC Distribution Width SD 54.6 fl (35.1-43.9); Red Blood Count 3.25 M/mm3 (4.6-6.2); White Blood Count 12.3 K/mm3 (4.4-11.0)
[2021-07-20 05:36] LABS: Differential Indicated SCAN CRITERIA MET
[2021-07-20 05:52] LABS: ALB/GLOB Ratio 0.5 RATIO (0.9-2.4); AST(SGOT) 46 U/L (15-37); Alanine Aminotransfer ALT/SGPT 113 U/L (16-61); Albumin, Serum 1.7 g/dL (3.2-5.0); Alkaline Phosphatase 120 U/L (45-117); Anion Gap 12 (5-15); BUN 86 mg/dL (7-18); BUN/Creat Ratio 15.6 RATIO (10-20); Chloride 115 mmol/L (98-107); Creatinine, Serum 5.51 mg/dL (0.70-1.30); EST Glomerular Filtration Rate 11 mL/min (>60); Est Glom Filt Rate - Afr Amer 13 mL/min (>60); Globulin 3.4 g/dL (2.2-4.2); Glucose 160 mg/dL (74-106); Potassium 3.3 mmol/L (3.5-5.1); Protein, Total 5.1 g/dL (6.4-8.2); Sodium Level 143 mmol/L (136-145)
[2021-07-20 05:56] LABS: Differential Comment SCANNED
[2021-07-20] MEDS: TITRATION PARAMETER CHANGE 1 EACH IV (06:36)
[2021-07-20] MEDS: Propofol 10MG/Ml 1,000 MG/100 ML Bottle 7.3 MG CONT INF (06:40)
--- NOTE | 2021-07-20 07:35 | PCM.PN.HOSP ---
Objective Data Objective Data Vital Signs: Vital Signs Temp Pulse Resp BP Pulse Ox 100.1 F H 110 H 23 H 104/65 96 07/20/21 04:00 07/20/21 07:20 07/20/21 07:20 07/20/21 07:00 07/20/21 07:20 Oxygen Delivery Method Mechanical Ventilator Weight: 80.6 kg Body Mass Index (BMI) 25.2 Intake & Output: Intake and Output for Last 24 Hours 07/18/21 07/19/21 07/20/21 23:59 23:59 23:59 Intake Total 4891.34 / 4913.04 1859.89 / 1876.79 114.39 / 114.39 Output Total 1350 / 1550 1900 / 2400 900 / 900 Balance 3541.34 / 3363.04 -40.11 / -523.21 -785.61 / -785.61 Medical Nutrition Assessment Dietitian: Malnutrition Criteria Met Start: 07/18/21 10:48 Freq: Status: Active Protocol: Document 07/19/21 12:04 (Rec: 07/19/21 12:04 [id number]) Nutrition Malnutrition Evidence of Malnutrition Exists Yes Malnutrition (severe): Chronic Evidenced By Suboptimal Energy Intake ( Severe),Weight Loss (Severe) Clinical Problem Chronic Disease or Condition Related Malnutrition Etiology severe, chronic malnutrition r /t inadequate energy intake d/ t decreased appetite, GI dysfunction Signs/Symptoms as evidenced by unintentional wt loss of 15.5kg/17% since per EMR, reported 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 Status Active Problem Acute Disease or Injury Related Malnutrition Etiology - Signs/Symptoms - Status Inactive Problem Recommendation Dietitian Recommendations/Changes NPO while intubated; Will await further decisions regarding plan of care and approval from GI prior to initiation of enteral nutrition support Lab / Micro Data Result Diagrams: 07/20/21 05:25 07/20/21 05:25 Labs: Laboratory Results - last 24 hr 07/19/21 10:13: POC Glucose 148 H 07/19/21 13:33: POC Glucose 144 H 07/19/21 17:41: POC Glucose 143 H 07/19/21 22:01: POC Glucose 179 H 07/20/21 02:37: POC Glucose 168 H 07/20/21 05:25: WBC 12.3 H, RBC 3.25 L, Hgb 9.0 L, Hct 26.2 L, MCV 80.6, MCH 27.7, MCHC 34.4, RDW Std Deviation 54.6 H, RDW Coeff of Rose 18.6 H, Plt Count 180, MPV 9.4, Immature Gran % (Auto) 0.300, Neut % (Auto) 93.5 H, Lymph % (Auto) 1.9 L, [place] % (Auto) 4.1, Eos % (Auto) 0.0, Baso % (Auto) 0.2, Absolute Neuts (auto) 11.5 H, Absolute Lymphs (auto) 0.23 L, Nucleated RBC % 0.2, Differential Comment SCANNED 07/20/21 05:25: Sodium 143, Potassium 3.3 L, Chloride 115 H, Carbon Dioxide 16.0 L, Anion Gap 12, BUN 86 H, Creatinine 5.51 H, Estim Creat Clear Calc 11.90, Est GFR (MDRD) Af Amer 13 L, Est GFR (MDRD) Non-Af 11 L, BUN/Creatinine Ratio 15.6, Glucose 160 H, Calcium 7.0 L, Total Bilirubin 1.00, AST 46 H, ALT 113 H, Alkaline Phosphatase 120 H, Total Protein 5.1 L, Albumin 1.7 L, Globulin 3.4, Albumin/Globulin Ratio 0.5 L Micro: Microbiology 07/18/21 00:35 Transtracheal Aspirate Gram Stain - Final 07/18/21 00:35 Transtracheal Aspirate Respiratory Culture - Preliminary Staphylococcus aureus 07/17/21 19:20 Stool Stool Occult Blood (KISHA) - Final Occult Blood Positive
--- NOTE | 2021-07-20 08:39 | PN.CC_ITS ---
Assessment & Plan Assessment/Plan (1) Hemorrhagic shock: (2) Severe anemia: (3) Cardiopulmonary arrest: (4) Respiratory failure: (5) Acute renal failure: PLAN: RECOMMENDATIONS: 1. Monitor off sedation if possible 2. Continue twice daily PPI 3. Initiation of tube feeds per GI recommendations 4. Continue mechanical ventilation until stability of hemodynamics 5. Continue vancomycin pending sensitivities IMPRESSIONS: 1. PEA arrest secondary to hemorrhagic shock secondary to probable GI bleed Prognosis critical at this time secondary to delayed presentation. Patient has had a significant loss of blood over the course of 2 weeks by clinical history. Patient has received 8 units of packed red blood cells, 1 unit of plat elets and 2 units of FFP thus far in the hospitalization. GI has been consulted and has completed an EGD showing a lesion with high likelihood of rebleeding. Likely okay to recheck H&H on a daily basis given stability. Transfuse to keep hemoglobin greater than 8. Some concern for an element of hypoxic encephalopathy following PEA arrest. We will continue to hold sedation if possible. 2. Acute respiratory failure secondary to problem #1/staph aureus pneumonia Patient on minimal vent settings at this time. Patient does not have any acute infiltrates to suggest aspiration. However, patient will remain intubated pending stabilization of hemodynamic status. Patient does have a history of COPD, but does not appear to be in exacerbation at this time. That being said, patient is growing staph aureus from her sputum. Vancomycin has been started. 3. Acute kidney injury/early shock liver/anion gap metabolic acidosis Worsening patient with significant worsening in liver enzymes and renal function. Clinical suspicion for ATN secondary to prerenal etiology. Aggressive volume resuscitation. Continue to monitor urine output. Discussed with nephrology. Patient may need a hemodialysis line in the next 24 to 48 hours 4. Diabetes mellitus/coronary artery disease/advanced age/delayed presentation Complicates care, management, recovery and prognosis. Patient currently n.p.o. secondary to problem #1. Sliding scale insulin would likely be sufficient at this time. Dual antiplatelet therapy will be held secondary to problem #1. Will attempt to obtain home medication regimen, but no antihypertensives would be indicated. TIME: 32 minutes critical care time spent addressing patient's PEA arrest, hemorrhagic shock, acute respiratory failure, acute kidney injury, review of all data and collaboration with care team Subjective Subjective Patient did okay overnight. No acute issues were reported. Patient has been able to stay off of Levophed for over 24 hours. Patient not had any significant dysrhythmia noted on telemetry. Urine output remains adequate. No obvious bleeding was noted, but patient does still continue to have loose bowel movements through the FMS. Objective Data Objective Data Vital Signs: Vital Signs Temp Pulse Resp BP Pulse Ox 37.8 C H 110 H 23 H 104/65 96 07/20/21 04:00 07/20/21 07:20 07/20/21 07:20 07/20/21 07:00 07/20/21 07:20 Oxygen Delivery Method Mechanical Ventilator Weight: 80.6 kg Body Mass Index (BMI) 25.2 Intake & Output: Intake and Output for Last 24 Hours 07/18/21 07/19/21 07/20/21 23:59 23:59 23:59 Intake Total 4891.34 / 4913.04 1859.89 / 1901.04 249.74 / 249.74 Output Total 1350 / 1550 1900 / 2400 1075 / 1075 Balance 3541.34 / 3363.04 -40.11 / -498.96 -825.26 / -825.26 Medical Nutrition Assessment Dietitian: Malnutrition Criteria Met Start: 07/18/21 10:48 Freq: Status: Active Protocol: Document 07/19/21 12:04 (Rec: 07/19/21 12:04 [id number]) Nutrition Malnutrition Evidence of Malnutrition Exists Yes Malnutrition (severe): Chronic Evidenced By Suboptimal Energy Intake ( Severe),Weight Loss (Severe) Clinical Problem Chronic Disease or Condition Related Malnutrition Etiology severe, chronic malnutrition r /t inadequate energy intake d/ t decreased appetite, GI dysfunction Signs/Symptoms as evidenced by unintentional wt loss of 15.5kg/17% since per EMR, 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 Status Active Problem Acute Disease or Injury Related Malnutrition Etiology - Signs/Symptoms - Status Inactive Problem Recommendation Dietitian Recommendations/Changes NPO while intubated; Will await further decisions regarding plan of care and approval from GI prior to initiation of enteral nutrition support Lab / Micro Data Result Diagrams: 07/20/21 05:25 07/20/21 05:25 Labs: Laboratory Results - last 24 hr 07/19/21 10:13: POC Glucose 148 H 07/19/21 13:33: POC Glucose 144 H 07/19/21 17:41: POC Glucose 143 H 07/19/21 22:01: POC Glucose 179 H 07/20/21 02:37: POC Glucose 168 H 07/20/21 05:25: WBC 12.3 H, RBC 3.25 L, Hgb 9.0 L, Hct 26.2 L, MCV 80.6, MCH 27.7, MCHC 34.4, RDW Std Deviation 54.6 H, RDW Coeff of Rose 18.6 H, Plt Count 180, MPV 9.4, Immature Gran % (Auto) 0.300, Neut % (Auto) 93.5 H, Lymph % (Auto) 1.9 L, [place] % (Auto) 4.1, Eos % (Auto) 0.0, Baso % (Auto) 0.2, Absolute Neuts (auto) 11.5 H, Absolute Lymphs (auto) 0.23 L, Nucleated RBC % 0.2, Differential Comment SCANNED 07/20/21 05:25: Sodium 143, Potassium 3.3 L, Chloride 115 H, Carbon Dioxide 16.0 L, Anion Gap 12, BUN 86 H, Creatinine 5.51 H, Estim Creat Clear Calc 11.90, Est GFR (MDRD) Af Amer 13 L, Est GFR (MDRD) Non-Af 11 L, BUN/Creatinine Ratio 15.6, Glucose 160 H, Calcium 7.0 L, Total Bilirubin 1.00, AST 46 H, ALT 113 H, Alkalin e Phosphatase 120 H, Total Protein 5.1 L, Albumin 1.7 L, Globulin 3.4, Albumin/Globulin Ratio 0.5 L Micro: Microbiology 07/18/21 00:35 Transtracheal Aspirate Gram Stain - Final 07/18/21 00:35 Transtracheal Aspirate Respiratory Culture - Preliminary Staphylococcus aureus 07/17/21 19:20 Stool Stool Occult Blood (KISHA) - Final Occult Blood Positive Physical Exam Const Constitutional Narrative: Not following commands General Appearance: appears older than stated age, intubated and patient mechanically ventilated Orientation / Consciousness: lethargic HEENT Head and Scalp: normal to inspection Mouth: oral and palatal mucosa normal, endotracheal tube in place and OG tube in place Neck General: normal visual inspection Lymph Lymphatic: no lymphadenopathy noted Chest Chest: abnormal inspection of the chest increased A-P diameter and symmetrical chest wall rise; Negative for crepitus Resp Auscultation: diminished lung sounds; Negative for rales, rhonchi or wheezes Percussion: hyperresonance Cardio Rate: tachycardic Rhythm: regular rhythm Heart Sounds: Negative for gallop, murmur or rub GI non-distended Percussion: normal to percussion Rectal Exam: deferred Extremity normal to inspection General Extremity: Negative for clubbing, cyanosis or edema Skin Skin Narrative: Scattered bruising noted Neuro Sensorium / Orientation: lethargic Psych Appearance: intubated Charges/Coding Procedures Hospitalists Procedures: 69232 Critial Care 1st Hr
--- NOTE | 2021-07-20 08:50 | NURSING ---
called for an update. updated that the patient's pupils are now fixed and non responsive and does not have a cough or gag reflex. HR is fast, breathing fast and starting to desaturate. She stated that he would not want to be kept alive on the machine and she needs to follow his wishes. She stated that she has a couple errands to run this morning and then she will be in to see him and talk to the doctor. She stated that she wishes to withdraw care and make the patient comfortable. She stated that she will call family and see if anyone wishes to come see him but she does not want to be present and watch him pass away.
--- NOTE | 2021-07-20 14:00 | NURSING ---
Patient terminally weaned from the ventilator with family present
[2021-07-20] MEDS: LORazepam 2 MG/ML Syringe IV (14:04)
[2021-07-20] MEDS: Morphine 4 MG/ML Syringe IV ×2 (14:04→15:12)
[2021-07-20] MEDS: Atropine Sulfate 1% 2 ml Bottle 4 DRP PO (14:05)
--- NOTE | 2021-07-20 14:14 | CHAPLAIN ---
Type of Pastoral Visit ___ Initial Visit ___ Follow-up Visit ___ On-call Visit ___ General Patient Visit ___ Spiritual Assessment _x__ Family Conference _x__ Bereavement ___ Rapid Response ___ Code Blue ___ Other (describe below) Pastoral Care Referral From ___ Patient _x__ Family _x__ Nurse ___ Physician ___ Cashier Courtesy Booth ___ Vehicle Service Agent ___ Other (describe below) Sacrament/Intervention _x__ Active listening ___ Anointing ___ Gnosticist _x__ Bereavement ___ Communion ___ Brook[place]nn exploration ___ _x__ Life review ___ Prayer ___ Reconciliation ___ Sacrament of Sick _x__ Supportive presence ___ Wedding ___ Other (describe below) Pastoral Comments met with family in room prior to extubation; did some life review and exploration of spiritual needs; a medical records secretary from [employer] arrived and proceeded to give last rites and prayers for patient; medical team gathered to proceed with extubation; offer of assistance, support, and presence given
[2021-07-20] MEDS: Morphine 2 MG/ML Syringe IV (16:27)
--- NOTE | 2021-07-20 17:20 | CHAPLAIN ---
Type of Pastoral Visit ___ Initial Visit ___ Follow-up Visit ___ On-call Visit ___ General Patient Visit ___ Spiritual Assessment ___ Family Conference _x__ Bereavement ___ Rapid Response ___ Code Blue ___ Other (describe below) Pastoral Care Referral From ___ Patient ___ Family ___ Nurse ___ Physician ___ Fire Extinguisher Technician ___ Showcase Maker ___ Other (describe below) Sacrament/Intervention ___ Active listening ___ Anointing ___ Yazidi _x__ Bereavement ___ Communion ___ Brook[place]nn exploration ___ ___ Life review ___ Prayer ___ Reconciliation ___ Sacrament of Sick _x__ Supportive presence ___ Wedding ___ Other (describe below) Pastoral Comments
--- NOTE | 2021-07-20 17:50 | NURSING ---
Patient without respirations, apical pulse and BP. Verified with 2nd RN Harvey. Family present at bedside. Dr. Moseley notified.
--- NOTE | 2021-07-20 17:59 | EXP.PCM_ITS ---
Preliminary Cause of Preliminary Cause of Preliminary Cause of : Acute respiratory failure Acute cardiopulmonary arrest Acute hemorrhagic shock Date of Admission: 07/17/21 Date of : 07/20/21 Principle Diagnosis Acute hypoxic respiratory failure secondary to acute cardiopulmonary arrest Acute hemorrhagic shock secondary to acute GI bleed Problem List: Active and Suspected Problems (Updated 07/19/21 @ 10:[address] Rosangela Killian MD) Acute hypoxemic respiratory failure (Acute) Metabolic acidosis (Acute) Hypokalemia (Acute) LICHA (acute kidney injury) (Acute) Acute renal failure (Acute) Respiratory failure (Acute) Required emergent intubation (Acute) Hemorrhagic shock (Acute) GI bleed (Acute) Severe anemia (Acute) Cardiopulmonary arrest (Acute) Hospital Course 71-year-old male with past medical history of CAD status post stents, type II DM who presents with black tarry stools ongoing for about 1 week as well as generalized weakness and nausea. Patient had also been progressively short of breath for about 2 weeks. Patient was reluctant to come to the hospital. He had a syncopal episode prior to coming to the hospital. The EMS was called. Patient was found to be in PEA. Patient was found to be extremely pale. Trauma blood was ordered. He was successfully resuscitated. He subsequently was intubated in the ED. His clarified CODE STATUS to be no CPR anymore. Patient was found to have a hemoglobin of 4.1 after transfusing 3 units of trauma blood. Patient was monitored further in ICU. [employer] and GI were consulted. Emergent EGD showed clotted blood in the entire stomach with spurting gastric ulcer with a visible vessel that was injected and treated with argon beam coagulation. There were also nonobstructing oozing gastric ulcer with a visible vessel. This was believed to be NSAID induced in etiology. There is no evidence of perforation. Patient had received in all 8 units of packed RBC, 2 units of fresh frozen plasma and 1 unit of platelets. He however remained on the ventilator with worsening oxygenation status. His kidney function also worsened. This is despite also continue with IV fluids. Family met on 07/20/21 and withdrew care. He was terminally extubated. Time of : 1649 hrs. Assessment & Plan Assessment/Plan (1) Acute hypoxemic respiratory failure: (2) Metabolic acidosis: (3) Hypokalemia: (4) Respiratory failure: (5) Required emergent intubation: (6) LICHA (acute kidney injury): (7) GI bleed: QUALIFIERS: GI bleed type/associated pathology: gastrointestinal hemorrhage with hematemesis Qualified Code(s): K92.0 - Hematemesis (8) Severe anemia: (9) Cardiopulmonary arrest: (10) Severe malnutrition: Visit Charges Inpatient E&M: 11130 Disch Hosp
--- NOTE | 2021-07-21 09:51 | CASEMGMT ---
Addendum entered by Salty Bhatt 07/21/21 09:54: summary faxed to [facility] at this time. Original Note: VERA CARROLL NOTE: VM received from Jackson @ [facility] requesting updated clinicals be faxed. Call placed back to Jackson at this time. No answer. Message left informing her pt has . Diamond ÁLVAREZ RN CM
== END 2021-07-20 16:49 | DRG 377 ==
LOC: ED 19:35 → ICU 21:44
PROVIDERS: Internal Medicine Critical Care Medicine; Internal Medicine Gastroenterology; Admitting Provider Hospitalist; Emergency Provider Emergency Medicine; Visit Provider Internal Medicine
PROC: 0DJ08ZZ Inspection of Upper Intestinal Tract, Via Natural or Artificial Opening Endoscopic (ICD-10-PCS; CPT 43235; principal; 2021-07-18 16:10)
DX: K25.4 Chronic or unspecified gastric ulcer with hemorrhage (principal); J96.01 Acute respiratory failure with hypoxia; E43 Unspecified severe protein-calorie malnutrition; N17.9 Acute kidney failure, unspecified; E87.4 Mixed disorder of acid-base balance; E87.2 Acidosis; D62 Acute posthemorrhagic anemia; I46.8 Cardiac arrest due to other underlying condition; R57.8 Other shock; J44.9 Chronic obstructive pulmonary disease, unspecified; E11.65 Type 2 diabetes mellitus with hyperglycemia; I25.10 Atherosclerotic heart disease of native coronary artery without angina pectoris; E87.6 Hypokalemia; I25.2 Old myocardial infarction; R55 Syncope and collapse; Z68.29 Body mass index [BMI] 29.0-29.9, adult; Z95.5 Presence of coronary angioplasty implant and graft; Z79.01 Long term (current) use of anticoagulants; Z79.82 Long term (current) use of aspirin; Z79.899 Other long term (current) drug therapy; Z87.891 Personal history of nicotine dependence
CPT/HCPCS: 31500; 31720; 36556; 36600; 51702; 71045; 80048; 80053; 81001; 82274; 82803; 82962; 83605; 83735; 84484; 85014; 85018; 85025; 85610; 85730; 86644; 86850; 86900; 86901; 86920; 86965; 87070; 87077; 87186; 87205; 92950; 94002; 94003; 94640; 97802; 99285; J7030; J7040; J7050; P9016; P9017; P9035; A4216; J3010; J3490